=== PATIENT | female | born 1940 | race Caucasian/White ===

== ENCOUNTER 2022-09-21 15:40 | Inpatient (IN) | payer MEDICARE, SELFPAY ==
[2022-09-21] VITALS (8 sets, daily range): BP systolic 129–153; BP diastolic 40–74; PULSE 72–86; RESP 11–26; TEMP 36.2–37.1; O2SAT 98–100
--- NOTE | ~2022-09-21 | CT_ITS ---
EXAMINATION: CT abdomen pelvis wo con DATE: 09/21/2022 19:36 INDICATION: renal failure with hydronephrosis TECHNIQUE: Computed tomography (CT) of the abdomen and pelvis was performed without intravenous contr ast. Automated exposure control and iterative reconstruction technique were employed. The dose-length product was 595.94 mGy-cm. COMPARISON: Renal ultrasound, same date. FINDINGS: Lower thorax: Scattered pulmonary nodules, largest present in the lingula measuring 6 mm. Scarring an d bronchiectasis in the peripheral left lower lung. Liver: Normal. Biliary/Gallbladder: Gallbladder is absent. No bile duct dilation. Pancreas: No mass or duct dilation. Spleen: Normal. 8 mm splenic artery aneurysm, requiring no additional evaluation. Adrenals:No mass. Kidneys: Right kidney surgically absent. Left renal hypertrophy. Moderate left perinephric stranding, pelviectasis, and ureterectasis. 7 mm stone in the proximal left ureter. 5 mm nonobstructing left lo wer pole calcification. Left upper pole postsurgical change. Hemorrhagic cyst in the left upper pole. Multiple simple renal cysts. GI tract: No small or large bowel dilation. Normal appendix. Diverticulosis without diverticulitis. Mesentery/Peritoneum: No ascites, mass, or free air. Retroperitoneum: No mass. Pelvis: The urinary bladder is decompressed by a Stratton catheter. Soft Tissues: Soft tissues and body wall unremarkable. Bones: No acute osseous finding. Likely enchondroma in the proximal right femur. IMPRESSION: 7 mm proximal left ureteral stone causing moderate obstructive uropathy. Multiple pulmonary nodules, measuring up to 6 mm, recommend follow-up low-dose noncontrast chest CT in 3-6 months. Reviewed, dictated and finalized at location K. IMPRESSION: 7 mm proximal left ureteral stone causing moderate obstructive uropathy. Multip le pulmonary nodules, measuring up to 6 mm, recommend follow-up low-dose noncon trast chest CT in 3-6 months.
--- NOTE | ~2022-09-21 | XR_ITS ---
EXAMINATION: XR abdomen/kub 1V INDICATION: Left ureteral calculus TECHNIQUE: Supine views of the abdomen were obtained on 2 radiographs. COMPARISON: None FINDINGS: A left internal ureteral stent is in expected position. A 5 mm stone projects adjacent to t he proximal stent just below the left L3 transverse process. Surgical clips in the right abdomen are consistent with prior right nephrectomy. The bowel gas pattern is normal. IMPRESSION: 1. Left internal ureteral stent in expected position with 5 mm stone adjacent to the proximal stent. Reviewed, dictated and finalized at location A. IMPRESSION: 1. Left internal ureteral stent in expected position with 5 mm stone adjacent t o the proximal stent.
--- NOTE | ~2022-09-21 | US_ITS ---
EXAMINATION: US renal BI DATE: 09/21/2022 19:10 INDICATION: renal failure TECHNIQUE: Multiple grayscale and Doppler ultrasound images of the kidneys were obtained. COMPARISON: None. FINDINGS: The right kidney measures surgically absent The left kidney measures 15.9 x 8.1 x 6.9 cm. The left ki dney demonstrates normal parenchymal echogenicity. There is mild left hydronephrosis. 1 cm simple lef t renal cyst. The bladder is decompressed by a Stratton catheter. IMPRESSION: Mild left hydronephrosis and left renal hypertrophy. Absent right kidney. Reviewed, dictated and finalized at location K.
--- NOTE | ~2022-09-21 | XR_ITS ---
EXAMINATION: XR retrograde pyelo w/stent LT DATE: 09/22/2022 08:14 INDICATION: Left internal ureteral stent placement TECHNIQUE: Fluoroscopic images from a left internal ureteral stent placement are submitted for review . 77 seconds of fluoroscopy time. 4 images. FINDINGS: There is a left double-J internal ureteral stent projecting in expected position, with proximal [place] loop at the level of the renal pelvis. Distal loop is not visualized.. IMPRESSION: 1. Left internal ureteral stent placement. Please refer to real-time procedural findings for detail s. Reviewed, dictated and finalized at location L. IMPRESSION: 1. Left internal ureteral stent placement. Please refer to real-time procedur al findings for details.
[2022-09-21 16:24] LABS: Basophils Percent Auto 0.3 % (0.2-1.2); Eosinophils Absolute Auto 0.1 K/mm3 (0-0.3); Eosinophils Percent Auto 0.9 % (0-4.4); Hematocrit 36.7 % (37.0-47.0); Hemoglobin 11.7 g/dL (12.0-15.0); Immature Granulocyte Absolute 0.05 K/mm3 (0.00-0.031); Immature Granulocyte Percent A 0.4 % (0-0.5); Lymphocytes Absolute Auto 1.15 K/mm3 (0.9-3.2); Lymphocytes Percent Auto 9.8 % (18.3-44.2); Mean Corpuscular HGB Conc 31.9 g/dl (32-36); Mean Corpuscular Hemoglobin 31.3 pg (26-34); Mean Corpuscular Volume 98.1 fl (80-100); Mean Platelet Volume 10.9 fl (7.4-10.4); Monocytes Absolute Auto 1.6 K/mm3 (0.1-0.6); Monocytes Percent Auto 13.5 % (2.6-8.5); Neutrophils Absolute Auto 8.8 K/mm3 (1.3-6.7); Neutrophils Percent Auto 75.1 % (45.5-73.1); Platelet Count Result 202 k/mm3 (150-375); Red Blood Count 3.74 M/mm3 (4.2-5.4); Red Cell Distribution Width 13.1 % (11.5-14.5); White Blood Count 11.8 K/mm3 (4.5-10.0)
[2022-09-21 16:33] LABS: Anion Gap 9 mmol/L (8-16); Blood Urea Nitrogen 38 mg/dL (7-17); Calcium 8.5 mg/dL (8.4-10.2); Carbon Dioxide 28 mmol/L (22-30); Chloride 103 mmol/L (98-107); Estimated CRCL calculation 10 ml/min; Estimated Glomerular Filt Rate 11; Glucose 99 mg/dL (65-110); Potassium 3.5 mmol/L (3.4-5.0); Sodium 140 mmol/L (137-145)
--- NOTE | 2022-09-21 17:03 | ED.GENADULT ---
HPI - General Adult General Chief complaint: Weakness Stated complaint: uti Time Seen by Provider: 09/21/22 16:00 History of Present Illness HPI narrative: Patient is an 82-year-old female with history of dementia that presents to the ER with concerns for UTI. Family reports patient has been more sleepy over the last couple days. She is also been having to strain and attempt to urinate. They are concerned she has a UTI. Patient has history of only having two thirds of a single kidney to perform all of her urinary function due to her trauma when she was younger. Patient receives no care at this facility and has received all of her care at [facility] but family is hoping to start receiving care here. Apparently patient also goes to a cancer center at [facility] for anemia and receives injections and recently had normal iron and folate levels. Pill reports patient has history of a nephrectomy and an additional partial nephrectomy, these are related to trauma and renal cell carcinoma Related Data Home Medications Medication Instructions Recorded Confirmed albuterol 90 mcg/actuation aerosol mcg inhalation 09/21/22 inhaler alendronate 70 mg tablet 70 mg PO WEEKLY 09/21/22 09/21/22 aspirin 81 mg tablet,delayed 81 mg PO DAILY 09/21/22 09/21/22 release cetirizine 10 mg capsule (Zyrtec) 10 mg PO DAILY PRN Allergy Symptoms 09/21/22 09/21/22 levothyroxine 25 mcg tablet 25 mcg PO DAILY 09/21/22 09/21/22 metoprolol tartrate 25 mg tablet mg 09/21/22 midodrine 2.5 mg tablet mg 09/21/22 09/21/22 umeclidinium 62.5 mcg-vilanterol 1 inh inhalation DAILY 09/21/22 09/21/22 25 mcg/actuation powdr for inhalation (Anoro Ellipta) vitamin B complex (B 1 tablet PO DAILY 09/21/22 09/21/22 Complex-Vitamin B12 tablet) Allergies Allergy/AdvReac Type Severity Reaction Status Date / Time cat dander Allergy Unknown Verified 09/21/22 17:47 milk Allergy Unknown Verified 09/21/22 17:47 Review of Systems Review of Systems: ROS unobtainable: Yes unobtainable due to mental status PMFSH Past Medical History Medical History (Updated 09/21/22 @ 19:25 by Charlie Olivera MD) Anemia Breast cancer Chronic kidney disease Dementia Hyperlipidemia Hypertension Osteoporosis Renal cell carcinoma Surgical History Surgical History (Updated 09/21/22 @ 19:22 by Charlie Olivera MD) H/O partial nephrectomy History of nephrectomy Exam Narrative: GENERAL: Well-appearing, well-nourished, and in no acute distress. HEAD: Normocephalic, atraumatic. EYES: PERRL and EOMI. ENT: Mucous membranes moist. CHEST: Clear to auscultation. No respiratory distress. HEART: Regular rate and rhythm. Normal peripheral pulses. ABDOMEN: Soft, nontender, nondistended. EXTREMITIES: Normal range of motion. No edema. SKIN: Warm, dry, no rash. NEURO: Alert and oriented x1. PSYCH: Normal mood and affect. Course Course Emergency Course: Patient resting comfortably. Patient family informed of results. Nephrology has been consulted and recommends renal ultrasound as well as urine creatinine and sodium. No comparison records at this hospital. Hospitalist service has accepted the patient. Vital Signs Vital signs: Vital Signs Temperature 97.2 F L 09/21/22 15:55 Pulse Rate 86 09/21/22 15:55 Respiratory Rate 16 09/21/22 15:55 Blood Pressure 129/40 L 09/21/22 15:55 Pulse Oximetry 98 09/21/22 15:55 Oxygen Delivery Room Air 09/21/22 15:55 Temperature 97.2 F L 09/21/22 15:55 Pulse Rate 72 09/21/22 18:46 Respiratory Rate 20 09/21/22 18:46 Blood Pressure 143/55 H 09/21/22 18:46 Pulse Oximetry 98 09/21/22 18:46 Oxygen Delivery Room Air 09/21/22 16:08 Medical Decision Making Vital Signs Vital Signs: Vital Signs Temperature 97.2 F L 09/21/22 15:55 Pulse Rate 86 09/21/22 15:55 Respiratory Rate 16 09/21/22 15:55 Blood Pressure 129/40 L 09/21/22 15:55 Pulse Oximetry 98
--- NOTE | 2022-09-21 18:49 | PC.NURSE ---
Still no output in catheter
[2022-09-21] MEDS: SODIUM CHLORIDE 0.9% IV 1,000 ML 125 ML IV CONT (18:57)
--- NOTE | 2022-09-21 21:02 | PM.IMHP ---
H&P: HPI History of Present Illness Date/Time: 09/21/22 23:40 Chief Complaint: not eating or drinking, decreased urination Narrative: 82-year-old female with a past medical history of left unilateral kidney, chronic kidney, osteoporosis, essential hypertension, COPD, dementia and hypothyroidism who presented to the ER via private vehicle with family due to decreased urine output and decreased oral intake. There is no prior medical history available in the computer and the patient is quite demented. She is so confused she can only tell me her 1st and middle name and cannot tell me her last name. She states that her last name is associated with something that is little and white that you can eat. She cannot tell me her date of or age. She started sentences and then finishes with nonsensical responses. She denies having any pain. She has not been having any nausea or vomiting. She has been essentially and uric since admission and has a Stratton catheter placed. She remains anuric despite receiving IV fluids. Review of Systems Review of Systems: ROS unobtainable: Yes unobtainable due to medical condition (Dementia) [facility] Past Medical History Medical History (Updated 09/22/22 @ 07:57 by Gloria Whalen DO) Anemia Breast cancer Breast cancer, left breast Chronic kidney disease COPD (chronic obstructive pulmonary disease) Dementia Hyperlipidemia Hypertension Hypothyroidism Irritable bowel disease Mitral valve prolapse Osteoporosis Renal cell carcinoma Surgical History Surgical History H/O partial nephrectomy left renal cell carcinoma History of nephrectomy right trauma Hx of cholecystectomy Family History Family History Other Unknown family medical history Social History Social History (Updated 09/22/22 @ 07:41 by Gloria Whalen DO) Social History: According nursing staff the patient lives at home alone. She has caregivers that come in the morning and the evening. Code status: Full code (per EMR) Smoking packs per day: 3 Smoking cigarettes per day: 60.0 Years smoked: 12 Smoking pack-years: 36.00 Smoking status: Former smoker Alcohol intake: never Substance use: never Lack of Transportation: No Lack of Food: Never True Current Housing: I Have Housing Concerned About Future Housing: No Difficulty Paying Gas/Electric Bills: No Difficulty Paying for Meds: No Currently Unemployed: No Education: Don't Know Difficulty w/ Childcare or Family Care: No Spiritual care concerns: Yes Meds Home Medications and Allergies Home Medications Medication Instructions Recorded Confirmed Type Calcium + Vitamin D 1 tablet PO BID 09/21/22 09/21/22 History One-A-Day Women's 50 Plus 1 tablet PO DAILY 09/21/22 09/21/22 History albuterol 90 mcg/actuation aerosol 90 mcg inhalation QID PRN Dyspnea 09/21/22 09/21/22 History inhaler alendronate 70 mg tablet 70 mg PO WEEKLY 09/21/22 09/21/22 History aspirin 325 mg tablet 325 mg PO DAILY 09/21/22 09/21/22 History cetirizine 10 mg capsule (Zyrtec) 10 mg PO DAILY PRN Allergy Symptoms 09/21/22 09/21/22 History ferrous sulfate 325 mg (65 mg 325 mg PO DAILY 09/21/22 09/21/22 History iron) tablet levothyroxine 25 mcg tablet 25 mcg PO DAILY 09/21/22 09/21/22 History metoprolol tartrate 25 mg tablet 25 mg PO DAILY 09/21/22 09/21/22 History midodrine 2.5 mg tablet 2.5 mg PO DAILY 09/21/22 09/21/22 History umeclidinium 62.5 mcg-vilanterol 1 inh inhalation DAILY 09/21/22 09/21/22 History 25 mcg/actuation powdr for inhalation (Anoro Ellipta) vit C 250 mg-vit E 90 mg-zinc 40 1 tablet PO BID 09/21/22 09/21/22 History mg-copper 1 [id number] capsule (PreserVision AREDS-2) vitamin B complex (B 1 tablet PO DAILY 09/21/22 09/21/22 History Complex-Vitamin B12 tablet) Allergies Allergy/AdvReac Type
--- NOTE | 2022-09-21 22:17 | PC.NURSE ---
This patient, Venessa Pierce, was admitted to 3 Medical Room 346-01. Patient/family oriented to hospital policies and general routines including ID bracelet, bed and alarms, visiting hours, pain management, procedures, bathroom and other care routines, personal items, smoking policy, room service/diet, and visiting hours. Information on how to activate the Rapid Response Team has been discussed. Patient/Family are encouraged to report perceived risks to care and to ask questions if they do not understand what they are told or what they should do. Pt has Lt ureteral stone with hydronephrosis OR planned for AM daughter called and consent received.
[2022-09-22] VITALS (14 sets, daily range): BP systolic 120–156; BP diastolic 64–89; PULSE 66–107; RESP 12–20; TEMP 36–37.5; O2SAT 96–100
[2022-09-22] MEDS: SODIUM CHLORIDE 0.9% IV 1,000 ML 125 ML IV CONT (03:21)
[2022-09-22 05:44] LABS: Hematocrit 34.6 % (37.0-47.0); Hemoglobin 11.3 g/dL (12.0-15.0); Mean Corpuscular HGB Conc 32.7 g/dl (32-36); Mean Corpuscular Hemoglobin 31.8 pg (26-34); Mean Corpuscular Volume 97.5 fl (80-100); Platelet Count Result 181 k/mm3 (150-375); Red Blood Count 3.55 M/mm3 (4.2-5.4); White Blood Count 9.4 K/mm3 (4.5-10.0)
[2022-09-22 05:55] LABS: Albumin Level 3.4 g/dL (3.5-5.1); Anion Gap 7 mmol/L (8-16); Blood Urea Nitrogen 40 mg/dL (7-17); Calcium 7.6 mg/dL (8.4-10.2); Carbon Dioxide 24 mmol/L (22-30); Chloride 107 mmol/L (98-107); Estimated CRCL calculation 8 ml/min; Estimated Glomerular Filt Rate 8; Glucose 88 mg/dL (65-110); Phosphorus 3.4 mg/dL (2.5-4.5); Sodium 138 mmol/L (137-145)
--- NOTE | 2022-09-22 06:55 | WPDANESEPPF ---
Anes - Initial Pre Proc Eval Procedure: Operation Date: 09/22/22 14:30 Proposed Procedures p Cystoscopy with Left Stent Placement(Left) - Gary Joseph MD Date/Time: 09/22/22 06:55 Surgeon: Fidencio Bar MD Pre Op Diagnosis: Renal Failure Patient Data Age: 82 Gender: F Height: 1.78 m Weight: 62 kg Last Vital Signs Temp 37.2 C 09/22/22 06:00 Pulse 75 09/22/22 06:00 Resp 18 09/22/22 06:00 BP 151/71 H 09/22/22 06:00 Pulse Ox 97 09/22/22 06:00 O2 Del Method Room Air 09/21/22 21:55 Allergies Allergy/AdvReac Type Severity Reaction Status Date / Time cat dander Allergy Unknown Verified 09/21/22 17:47 milk Allergy Unknown Verified 09/21/22 17:47 Home Medications Medication Instructions Recorded Confirmed Type Calcium + Vitamin D 1 tablet PO BID 09/21/22 09/21/22 History One-A-Day Women's 50 Plus 1 tablet PO DAILY 09/21/22 09/21/22 History albuterol 90 mcg/actuation aerosol 90 mcg inhalation QID PRN Dyspnea 09/21/22 09/21/22 History inhaler alendronate 70 mg tablet 70 mg PO WEEKLY 09/21/22 09/21/22 History aspirin 325 mg tablet 325 mg PO DAILY 09/21/22 09/21/22 History cetirizine 10 mg capsule (Zyrtec) 10 mg PO DAILY PRN Allergy Symptoms 09/21/22 09/21/22 History ferrous sulfate 325 mg (65 mg 325 mg PO DAILY 09/21/22 09/21/22 History iron) tablet levothyroxine 25 mcg tablet 25 mcg PO DAILY 09/21/22 09/21/22 History metoprolol tartrate 25 mg tablet 25 mg PO DAILY 09/21/22 09/21/22 History midodrine 2.5 mg tablet 2.5 mg PO DAILY 09/21/22 09/21/22 History umeclidinium 62.5 mcg-vilanterol 1 inh inhalation DAILY 09/21/22 09/21/22 History 25 mcg/actuation powdr for inhalation (Anoro Ellipta) vit C 250 mg-vit E 90 mg-zinc 40 1 tablet PO BID 09/21/22 09/21/22 History mg-copper 1 [id number] capsule (PreserVision AREDS-2) vitamin B complex (B 1 tablet PO DAILY 09/21/22 09/21/22 History Complex-Vitamin B12 tablet) Laboratory Tests 09/21/22 09/22/22 16:18 05:29 WBC 11.8 H K/mm3 9.4 K/mm3 (4.5-10.0) (4.5-10.0) RBC 3.74 L M/mm3 3.55 L M/mm3 (4.2-5.4) (4.2-5.4) Hgb 11.7 L g/dL 11.3 L g/dL (12.0-15.0) (12.0-15.0) Hct 36.7 L % 34.6 L % (37.0-47.0) (37.0-47.0) MCV 98.1 fl 97.5 fl (80-100) (80-100) MCH 31.3 pg 31.8 pg (26-34) (26-34) MCHC 31.9 L g/dl 32.7 g/dl (32-36) (32-36) RDW 13.1 % 13.0 % (11.5-14.5) (11.5-14.5) Plt Count 202 k/mm3 181 k/mm3 (150-375) (150-375) MPV 10.9 H fl 11.0 H fl (7.4-10.4) (7.4-10.4) Immature Gran % (Auto) 0.4 % (0-0.5) Neut % (Auto) 75.1 H % (45.5-73.1) Lymph % (Auto) 9.8 L % (18.3-44.2) [place] % (Auto) 13.5 H % (2.6-8.5) Eos % (Auto) 0.9 % (0-4.4) Baso % (Auto) 0.3 % (0.2-1.2) Lymph # (Auto) 1.15 K/mm3 (0.9-3.2) [place] # (Auto) 1.6 H K/mm3 (0.1-0.6) Eos # (Auto) 0.1 K/mm3 (0-0.3) Baso # (Auto) 0.0 K/mm3 (0.0-0.1) Abs Immat Gran (auto) 0.05 H K/mm3 (0.00-0.031) Absolute Neuts (auto) 8.8 H K/mm3 (1.3-6.7) Absolute Nucleated RBC 0.0 K/mm3 (0.0-0.012) Nucleated RBC % 0.0 % (0.0-0.2) Sodium 140 mmol/L 138 mmol/L (137-145) (137-145) Potassium 3.5 mmol/L 4.0 mmol/L (3.4-5.0) (3.4-5.0) Chloride 103 mmol/L 107 mmol/L (98-107) (98-107) Carbon Dioxide 28 mmol/L 24 mmol/L (22-30) (22-30) Anion Gap 9 mmol/L 7 L mmol/L (8-16) (8-16) BUN 38 H mg/dL 40 H mg/dL (7-17) (7-17) Creatinine 4.00 H mg/dL 5.00 H mg/dL (0.7-1.0) (0.7-1.0) Estim Creat Clear Calc 10 ml/min 8 ml/min Estimated GFR 11 L 8 L (59 - ) (59 - ) Glucose 99 mg/dL 88 mg/dL (65-110) (65-110) Calcium 8.5 mg/dL 7.6 L mg/dL (8.4-10.2) (8.4-10.2) Phosphorus 3.4 mg/dL (2.5-4.5) Albumin 3.4 L g/dL (3.5-5.1) Patient hx anesthesia problems: none Family hx anesthes
--- NOTE | 2022-09-22 07:15 | WPDURCON ---
Assessment and Plan Assessment and plan (1) Hydronephrosis with urinary obstruction due to ureteral calculus: Code(s): N13.2 - Hydronephrosis with renal and ureteral calculous obstruction Status: Acute Assessment and Plan: Proceed with cystoscopy, left retrograde, left stent placement. Urology Consult Note HPI Date Seen: 09/22/22 Time Seen: 07:15 Requesting Physician: Fidencio Bar MD Primary Care Provider: Andra Schulz, DO Consult Narrative Reason for consult: left hydronephrosis with obstructing stone in solitary kidney Narrative: Venessa Pierce is a 82 year old female with dementia admitted with some increase in confusion. Information obtained from chart. She was eventually found to have a solitary left kidney with a 7 mm left ureteral calculus. Creatinine up to 4 but baseline unknown. Afebrile. Will proceed with cystoscopy with left retrograde, left stent placement. Stratton cath in place without urine Review of Systems Review of Systems: All systems reviewed & are unremarkable except as noted in HPI and below PMFSH Past Medical History Medical History Anemia Breast cancer Breast cancer, left breast Chronic kidney disease COPD (chronic obstructive pulmonary disease) Dementia Hyperlipidemia Hypertension Irritable bowel disease Mitral valve prolapse Osteoporosis Renal cell carcinoma Surgical History Surgical History H/O partial nephrectomy left renal cell carcinoma History of nephrectomy right trauma Hx of cholecystectomy Family History Family History Other Unknown family medical history Social History Social History Smoking packs per day: 3 Smoking cigarettes per day: 60.0 Years smoked: 12 Smoking pack-years: 36.00 Smoking status: Former smoker Alcohol intake: never Substance use: never Lack of Transportation: No Lack of Food: Never True Current Housing: I Have Housing Concerned About Future Housing: No Difficulty Paying Gas/Electric Bills: No Difficulty Paying for Meds: No Currently Unemployed: No Education: Don't Know Difficulty w/ Childcare or Family Care: No Spiritual care concerns: Yes Meds Home Medications and Allergies Home Medications Medication Instructions Recorded Confirmed Type Calcium + Vitamin D 1 tablet PO BID 09/21/22 09/21/22 History One-A-Day Women's 50 Plus 1 tablet PO DAILY 09/21/22 09/21/22 History albuterol 90 mcg/actuation aerosol 90 mcg inhalation QID PRN Dyspnea 09/21/22 09/21/22 History inhaler alendronate 70 mg tablet 70 mg PO WEEKLY 09/21/22 09/21/22 History aspirin 325 mg tablet 325 mg PO DAILY 09/21/22 09/21/22 History cetirizine 10 mg capsule (Zyrtec) 10 mg PO DAILY PRN Allergy Symptoms 09/21/22 09/21/22 History ferrous sulfate 325 mg (65 mg 325 mg PO DAILY 09/21/22 09/21/22 History iron) tablet levothyroxine 25 mcg tablet 25 mcg PO DAILY 09/21/22 09/21/22 History metoprolol tartrate 25 mg tablet 25 mg PO DAILY 09/21/22 09/21/22 History midodrine 2.5 mg tablet 2.5 mg PO DAILY 09/21/22 09/21/22 History umeclidinium 62.5 mcg-vilanterol 1 inh inhalation DAILY 09/21/22 09/21/22 History 25 mcg/actuation powdr for inhalation (Anoro Ellipta) vit C 250 mg-vit E 90 mg-zinc 40 1 tablet PO BID 09/21/22 09/21/22 History mg-copper 1 [id number]-twhuly capsule (PreserVision AREDS-2) vitamin B complex (B 1 tablet PO DAILY 09/21/22 09/21/22 History Complex-Vitamin B12 tablet) Allergies Allergy/AdvReac Type Severity Reaction Status Date / Time cat dander Allergy Unknown Verified 09/21/22 17:47 milk Allergy Unknown Verified 09/21/22 17:47 Vital Signs Vital Signs - 24 hr 09/21/22 15:55 09/21/22 16:08 09/21/22 16:16 Temperature 36.
--- NOTE | 2022-09-22 07:19 | WPDHPUPDATE1 ---
History and Physical Update Update Date/Time: 09/22/22 07:19 History and Physical has been reviewed, including an updated exam of the patient. There are NO changes in the patient's condition. Risks, benefits, and alternatives have been discussed and questions answered. Patient agrees to proceed with procedure. Proceed with cystoscopy, left retrograde, left stent placement.
[2022-09-22] MEDS: SODIUM CHLORIDE 0.9% IV 500 ML 30 ML IV CONT (07:25)
[2022-09-22] MEDS: ceFAZolin 1 GM/NS 50 ML 1 GM/50 ML BAG IVPB (07:32)
--- NOTE | 2022-09-22 08:08 | W.PM.PROC2 ---
Procedure Note - Detailed Date of Procedure 09/22/22 Pre-op Diagnosis Renal Failure Obstructing left ureteral calculus in solitary kidney Post-op Diagnosis Same Procedure Performed Cystoscopy, left retrograde pyelogram, left ureteral stent placement 4.8 [place] contour stent Surgeon Gary Joseph MD Anesthesia General Description of Procedure Patient is taken to the operative suite and correctly identified. Once anesthesia was obtained she was placed in dorsal lithotomy position and prepped and draped usual sterile fashion. Twenty-two [place] scope was inserted in the bladder. The left ureteral orifice was visualized. There were no tumors noted. A pyelogram was performed the stone was visualized in the proximal ureter contrast was able to make it into the left collecting system. We had to manipulate an angled guidewire past the stone. An 8 [place] would not pass the stone. Thus placed a 4.8 [place] contour stent with the proximal end coiled in the renal pelvis the distal in the bladder. 2% viscous lidocaine was inserted urethra. Sixteen [place] Stratton was placed. Patient is taken recovery stable condition. We will see how she does clinically with the renal function. The stone will be addressed at a later point time. This completes dictation please send a copy to my office Urine Output 0 Drains Yes Packing No Pathology None sent Complications No immediate complications Condition Stable Disposition PACU
[2022-09-22] MEDS: FERROUS SULFATE 324 MG TABLET PO (10:07)
[2022-09-22] MEDS: LEVOTHYROXINE SODIUM 25 MCG TABLET PO (10:07)
[2022-09-22] MEDS: MIDODRINE HCL 2.5 MG TABLET PO (10:07)
[2022-09-22] MEDS: METOPROLOL TARTRATE 25 MG TABLET PO (10:07)
[2022-09-22] MEDS: SODIUM CHLORIDE 0.9% IV 1,000 ML 65 ML IV CONT (10:10)
--- NOTE | 2022-09-22 10:36 | PM.IMPN ---
Progress Note: A&P Assessment and Plan (1) Acute on chronic renal failure: Qualifiers: Acute renal failure type: unspecified Chronic kidney disease stage: unspecified stage Qualified Code(s): N17.9 - Acute kidney failure, unspecified; N18.9 - Chronic kidney disease, unspecified Code(s): N17.9 - Acute kidney failure, unspecified; N18.9 - Chronic kidney disease, unspecified Status: Acute Assessment and Plan: Renal functions worse than yesterday but patient underwent cystoscopy and stent placement today. She is making urine now. Hopefully renal functions will improve soon. Monitor BMP daily. Continue IV fluids (2) Hydronephrosis with urinary obstruction due to ureteral calculus: Code(s): N13.2 - Hydronephrosis with renal and ureteral calculous obstruction Status: Acute Assessment and Plan: Appreciate urology input. Patient underwent cystoscopy with stent placement. Continue IV fluids. Monitor BMP. Continue antibiotics (3) Hypothyroidism: Qualifiers: Hypothyroidism type: acquired Qualified Code(s): E03.9 - Hypothyroidism, unspecified Code(s): E03.9 - Hypothyroidism, unspecified Status: Acute Assessment and Plan: Continue home dose of levothyroxine (4) Hypertension: Qualifiers: Hypertension type: primary hypertension Qualified Code(s): I10 - Essential (primary) hypertension Code(s): I10 - Essential (primary) hypertension Status: Acute Assessment and Plan: Continue home medication Subjective Date/time seen: 09/22/22 10:36 Interval history: She is confused Review of Systems Review of Systems: ROS unobtainable: Yes unobtainable due to mental status Exam Narrative: 62 kg BMI 19.6 Const: Other: No acute distress, well-developed well-nourished, frail, elderly HENMT: Other: Mucous membranes are dry, no oral pharyngeal erythema, fair dentition, head is normocephalic atraumatic Eyes: Other: Pupils are equal and reactive, no scleral icterus, mild conjunctival pallor Neck: Other: No JVD, no lymphadenopathy Resp: Other: Clear to auscultation bilaterally, no increased work of breathing Cardio: Other: Regular rate, regular rhythm, 2+ bilateral radial pedal pulses GI: Other: Soft, nontender, nondistended, positive bowel sounds : Other: Stratton catheter in place with no urine output Skin: Other: Generalized pallor, non jaundice Neuro: Other: Alert oriented only to 1st and middle name, no localizing neurologic deficits noted, cranial nerves seem to be grossly intact Extrem: Other: No clubbing, cyanosis or edema Objective Data Vital Signs Vital Signs: Vital Signs - 24 hr 09/21/22 15:55 09/21/22 16:08 09/21/22 16:16 Temperature 97.2 F L Pulse Rate 86 79 84 Respiratory Rate 16 26 H 23 H Blood Pressure 129/40 L 140/56 L 146/74 H Pulse Oximetry 98 100 100 Oxygen Delivery Room Air Room Air 09/21/22 16:31 09/21/22 16:46 09/21/22 17:01 Temperature Pulse Rate 79 78 78 Respiratory Rate 19 11 L 16 Blood Pressure 139/71 148/73 H 140/66 Pulse Oximetry 99 99 99 Oxygen Delivery 09/21/22 18:46 09/21/22 21:55 09/21/22 23:02 Temperature 98.8 F Pulse Rate 72 76 Respiratory Rate 20 20 Blood Pressure 143/55 H 153/70 H Pulse Oximetry 98 99 Oxygen Delivery Room Air 09/22/22 06:00 09/22/22 07:29 09/22/22 08:12 Temperature 98.9 F 99.5 F 99.4 F Pulse Rate 75 83 107 H Respiratory Rate 18 16 16 Blood Pressure 151/71 H 133/67 156/89 H Pulse Oximetry 97 99 97 Oxygen Delivery Room Air Room Air 09/22/22 08:25 09/22/22 08:40 09/22/22 08:55 Temperature Pulse Rate 85 78 72 Respiratory Rate 16 12 18 Blood Pressure 120/78 125/70 133/71 Pulse Oximetry 96 96 97 Oxygen Delivery Room Air Room Air Room Air 09/22/22 09:45 09/22/22 10:07 09/22/22 10:00 Temperature 96.8 F L 97 F L Pulse Rate
--- NOTE | 2022-09-22 17:31 | PM.CNNEP ---
Assessment and Plan Assessment and plan (1) Acute kidney injury: Code(s): N17.9 - Acute kidney failure, unspecified Status: Acute Assessment and Plan: it is not clear what the baseline creatinine is in this patient; chronic kidney disease is in the chart but we have no chart records of this. She does only have 1 kidney of course but that does not mean her creatinine is necessarily abnormal depending on why and when she lost the original kidney. She does clearly have acute kidney injury. as she was not making any urine. This is due to a stone which passed and obstructed the ureter in the ureter/ureteropelvic junction. She does mention that she had a little left-sided flank pain about a week ago but I am not sure about the reliability of this history based on other things she has said. The obstruction is now relieved. She is making some urine but not a whole lot. Depending on long the obstruction has been there it may take a variable amount of time for the kidney to recover and start making urine again. Her numbers are already pretty bad. Will check another set of blood work tomorrow, 24 hours after the obstruction was relieved and see how much urine she has made and where we are with the electrolytes and BUN /creatinine. She may end up needing dialysis if that is something the family would wish to do and hopefully would be reversible but not guaranteed. (2) Hydronephrosis with urinary obstruction due to ureteral calculus: Code(s): N13.2 - Hydronephrosis with renal and ureteral calculous obstruction Status: Acute Assessment and Plan: the stone is still there but a stent is draining the renal pelvis. (3) Hypothyroidism: Qualifiers: Hypothyroidism type: acquired Qualified Code(s): E03.9 - Hypothyroidism, unspecified Code(s): E03.9 - Hypothyroidism, unspecified Status: Acute Assessment and Plan: She is on thyroid medication (4) Hypertension: Qualifiers: Hypertension type: primary hypertension Qualified Code(s): I10 - Essential (primary) hypertension Code(s): I10 - Essential (primary) hypertension Status: Acute Assessment and Plan: her blood pressure is under pretty good control between 120 and 148. (5) COPD (chronic obstructive pulmonary disease): Code(s): J44.9 - Chronic obstructive pulmonary disease, unspecified Status: Acute Assessment and Plan: She has inhalers as needed History of Present Illness Reason for Consult Consult date: 09/22/22 Chief Complaint Chief complaint: Renal Failure History of Present Illness Narrative: Venessa is a very pleasant 82-year-old lady who has multiple medical problems including senile dementia of the Alzheimer's type, breast cancer of the left breast, chronic kidney disease ( As listed in the chart but we do not have any labs to verify this), COPD, hyperlipidemia, hypertension, irritable bowel, mitral valve prolapse, renal cell carcinoma, osteoporosis. apparently showing in the emergency room because of confusion. She cannot really answer any questions in this information is gleaned from the chart. She was evaluated in the emergency room and found to have hydronephrosis. She only has 1 kidney on the left. There was no urine in the bladder on straight catheterization in the emergency room. They called Dr. patricio pena who came and saw her and placed a stent per cystoscope at about 8:00 a.m.. After that she has started to make a little bit of urine. The patient denies any shortness of breath or pain anywhere. Review of Systems Constitutional: Constitutional: Reports no additional constitutional complaints Eyes: Eyes: Reports no additional eye complaints ENT: Reports system reviewed and no additional complaints, except as documented Cardiovascular: Cardiovascular: Reports no additional cardiovascular complaints Respiratory: Respiratory: Reports no
[2022-09-23] MEDS: METOPROLOL TARTRATE 25 MG TABLET PO (08:21)
[2022-09-23] MEDS: MIDODRINE HCL 2.5 MG TABLET PO (08:21)
[2022-09-23] MEDS: UMECLIDINIUM/VILANTEROL 62.5-25 MCG ELLIPTA 1 PUFF INHALATION (09:00)
[2022-09-23] MEDS: FERROUS SULFATE 324 MG TABLET PO (09:00)
[2022-09-23] MEDS: LEVOTHYROXINE SODIUM 25 MCG TABLET PO (09:12)
--- NOTE | 2022-09-23 12:30 | CONS_ITS ---
SUBJECTIVE The patient is feeling okay. ?She is lying in bed comfortably. ?She is not short of breath. ?She says she notices that she does not have that left-sided pain anymore. ?She is eating pretty well. ?I talked with nursing and the patient is making more urine. OBJECTIVE VITAL SIGNS: ?I was told by the nurse that her blood pressure was 140/70, but I do not have any written vital signs right now. ? GENERAL: ?She is a well-developed, well-nourished female, lying in the hospital bed. ? LUNGS: ?Symmetric and clear. HEART: ?Regular rate and rhythm. ?No rub or gallop. ?Bowel sounds are positive. ?Soft, nontender. ?No HSM. ?No masses. ?No bruits. ? EXTREMITIES: ?Show no cyanosis, clubbing, or edema. ? LABORATORY DATA Sodium 140, potassium 3.5, chloride 103, CO2 of 28, glucose 99, BUN 38, creatinine 4.99. IMPRESSION The patient has acute kidney injury. ?She had a stone obstructing her sole kidney. ?A stent was placed by Dr. Joseph and she is making more urine now. ?Labs are pending for today, but hopefully the renal function will improve. ?She seems better mentally today as she is more directable and more conversive and less scattered and tangential. ?Hopefully, this means that the kidney function is getting better as well.? She has a renal stone. ?This is going to be managed when she is better. ?? Thank you very much. ALFREDITO
--- NOTE | 2022-09-23 18:45 | PC.NURSE ---
Paper documentation exists on this patient due to [employer] downtime on 09/23/22 from [id number] to [id number]
[2022-09-23 20:00] VITALS: PULSE 79; RESP 18; O2SAT 97
[2022-09-23 22:05] VITALS: BP 148/70; PULSE 84; RESP 16; TEMP 36.6; O2SAT 94
[2022-09-24 05:49] VITALS: BP 150/76; PULSE 70; RESP 18; TEMP 36.4; O2SAT 97
[2022-09-24 05:51] LABS: Hematocrit 34.3 % (37.0-47.0); Mean Corpuscular HGB Conc 32.1 g/dl (32-36); Mean Corpuscular Hemoglobin 31.1 pg (26-34); Mean Corpuscular Volume 96.9 fl (80-100); Mean Platelet Volume 11.2 fl (7.4-10.4); Platelet Count Result 189 k/mm3 (150-375); Red Blood Count 3.54 M/mm3 (4.2-5.4); Red Cell Distribution Width 12.4 % (11.5-14.5); White Blood Count 6.3 K/mm3 (4.5-10.0)
[2022-09-24] MEDS: LEVOTHYROXINE SODIUM 25 MCG TABLET PO (06:13)
[2022-09-24 06:24] LABS: Anion Gap 5 mmol/L (8-16); Blood Urea Nitrogen 8 mg/dL (7-17); Calcium 8.1 mg/dL (8.4-10.2); Carbon Dioxide 27 mmol/L (22-30); Chloride 110 mmol/L (98-107); Estimated CRCL calculation 79 ml/min; Estimated Glomerular Filt Rate > 60; Glucose 87 mg/dL (65-110); Potassium 3.4 mmol/L (3.4-5.0); Sodium 142 mmol/L (137-145)
[2022-09-24 07:40] VITALS: PULSE 57; RESP 18; O2SAT 94
[2022-09-24] MEDS: UMECLIDINIUM/VILANTEROL 62.5-25 MCG ELLIPTA 1 PUFF INHALATION (07:40)
[2022-09-24 09:11] VITALS: PULSE 85
[2022-09-24] MEDS: MIDODRINE HCL 2.5 MG TABLET PO (09:11)
[2022-09-24] MEDS: METOPROLOL TARTRATE 25 MG TABLET PO (09:11)
[2022-09-24] MEDS: FERROUS SULFATE 324 MG TABLET PO (09:11)
[2022-09-24] MEDS: SODIUM CHLORIDE 0.9% IV 1,000 ML 65 ML IV CONT (09:12)
[2022-09-24] MEDS: ACETAMINOPHEN 325 MG TABLET 650 MG PO ×2 (09:17→17:10)
[2022-09-24 10:54] LABS: Anion Gap 6 mmol/L (8-16); Blood Urea Nitrogen 7 mg/dL (7-17); Calcium 8.1 mg/dL (8.4-10.2); Carbon Dioxide 27 mmol/L (22-30); Chloride 108 mmol/L (98-107); Estimated CRCL calculation 79 ml/min; Estimated Glomerular Filt Rate > 60; Glucose 122 mg/dL (65-110); Sodium 141 mmol/L (137-145)
--- NOTE | 2022-09-24 11:27 | PM.IMPN ---
Progress Note: A&P Assessment and Plan (1) Acute on chronic renal failure: Qualifiers: Acute renal failure type: unspecified Chronic kidney disease stage: unspecified stage Qualified Code(s): N17.9 - Acute kidney failure, unspecified; N18.9 - Chronic kidney disease, unspecified Code(s): N17.9 - Acute kidney failure, unspecified; N18.9 - Chronic kidney disease, unspecified Status: Acute Assessment and Plan: Resolved. Hypokalemia noted. Will replace and likely send home tomorrow (2) Hydronephrosis with urinary obstruction due to ureteral calculus: Code(s): N13.2 - Hydronephrosis with renal and ureteral calculous obstruction Status: Acute Assessment and Plan: Status post stent placement. Doing well. Will need to follow up with Urology. Creatinine now normal (3) Hypothyroidism: Qualifiers: Hypothyroidism type: acquired Qualified Code(s): E03.9 - Hypothyroidism, unspecified Code(s): E03.9 - Hypothyroidism, unspecified Status: Acute Assessment and Plan: Continue home dose of levothyroxine (4) Hypertension: Qualifiers: Hypertension type: primary hypertension Qualified Code(s): I10 - Essential (primary) hypertension Code(s): I10 - Essential (primary) hypertension Status: Acute Assessment and Plan: Continue home medication Subjective Date/time seen: 09/24/22 11:27 Interval history: No complaints Exam Narrative: 62 kg BMI 19.6 Const: Other: No acute distress, well-developed well-nourished, frail, elderly HENMT: Other: Mucous membranes are dry, no oral pharyngeal erythema, fair dentition, head is normocephalic atraumatic Eyes: Other: Pupils are equal and reactive, no scleral icterus, mild conjunctival pallor Neck: Other: No JVD, no lymphadenopathy Resp: Other: Clear to auscultation bilaterally, no increased work of breathing Cardio: Other: Regular rate, regular rhythm, 2+ bilateral radial pedal pulses GI: Other: Soft, nontender, nondistended, positive bowel sounds : Other: Stratton catheter in place with no urine output Skin: Other: Generalized pallor, non jaundice Neuro: Other: Alert oriented only to 1st and middle name, no localizing neurologic deficits noted, cranial nerves seem to be grossly intact Extrem: Other: No clubbing, cyanosis or edema Objective Data Vital Signs Vital Signs: Vital Signs - 24 hr 09/23/22 20:00 09/23/22 22:05 09/24/22 05:49 Temperature 97.8 F 97.6 F Pulse Rate 79 84 70 Respiratory Rate 18 16 18 Blood Pressure 148/70 H 150/76 H Pulse Oximetry 97 94 97 Oxygen Delivery Room Air 09/24/22 07:40 09/24/22 07:40 09/24/22 09:11 Temperature Pulse Rate 57 L 57 L 85 Respiratory Rate 18 18 Blood Pressure Pulse Oximetry 94 Oxygen Delivery Room Air 09/24/22 08:00 09/23/22 15:30 Temperature Pulse Rate Respiratory Rate Blood Pressure Pulse Oximetry Oxygen Delivery Room Air Room Air Intake/Output Intake/Output: Intake & Output 09/21/22 09/22/22 09/23/22 09/24/22 23:59 23:59 23:59 23:59 Intake Total 2510 1000 440 Output Total 0 1900 1900 Balance 0 610 1000 -1460 Meds/Results Medications: Active Medications Generic Name Dose Route Start Last Admin Trade Name Freq PRN Reason Stop Dose Admin Acetaminophen 650 mg 09/21/22 18:31 09/24/22 09:17 Acetaminophen 325 Mg Tablet PO 650 mg Q4H PRN Administration Mild Pain (1-3) or Fever Albuterol 1 puff 09/21/22 21:00 Albuterol Sulfate (*Sp) Aerosol 1 Puff INHALATION QID PRN Dyspnea Ferrous Sulfate 324 mg 09/22/22 09:00 09/24/22 09:11 Ferrous Sulfate 324 Mg Tablet PO 324 mg DAILY DELILAH Administration Sodium Chloride 1,000 mls @ 65 mls/hr 09/21/22 18:35 09/24/22 09:12 Normal Saline Iv IV CONT 65 mls/hr .[id number] DELILAH Administration Le
--- NOTE | 2022-09-24 11:39 | PM.PNNEP ---
Progress Note: A&P Assessment and Plan (1) Acute kidney injury: Code(s): N17.9 - Acute kidney failure, unspecified Status: Acute Assessment and Plan: the creatinine has improved dramatically from 5 to 0.5. All this because she had the stent placed allowing her kidney to function. With good renal function renal will sign off. (2) Hydronephrosis with urinary obstruction due to ureteral calculus: Code(s): N13.2 - Hydronephrosis with renal and ureteral calculous obstruction Status: Acute Assessment and Plan: the stone is still there but a stent is draining the renal pelvis. (3) Hypothyroidism: Qualifiers: Hypothyroidism type: acquired Qualified Code(s): E03.9 - Hypothyroidism, unspecified Code(s): E03.9 - Hypothyroidism, unspecified Status: Acute Assessment and Plan: She is on thyroid medication (4) Hypertension: Qualifiers: Hypertension type: primary hypertension Qualified Code(s): I10 - Essential (primary) hypertension Code(s): I10 - Essential (primary) hypertension Status: Acute Assessment and Plan: her blood pressure is under pretty good control between 120 and 150. (5) COPD (chronic obstructive pulmonary disease): Code(s): J44.9 - Chronic obstructive pulmonary disease, unspecified Status: Acute Assessment and Plan: She has inhalers as needed Subjective Date/time seen: 09/24/22 11:39 Interval history: patient is alert. She is feeling okay calm and comfortable but still not oriented Review of Systems Cardiovascular: Cardiovascular: Reports no additional cardiovascular complaints Respiratory: Respiratory: Reports no additional respiratory complaints Gastrointestinal: Gastrointestinal: Reports no additional gastrointestinal complaints Genitourinary: Genitourinary: Reports no additional female genitourinary complaints Exam Narrative: WDWN in NAD skin no rash head ncat lungs clear cor reg no rub abd BS+ nontender and soft ext no edema. Objective Data Vital Signs Vital Signs: Vital Signs - 24 hr 09/23/22 20:00 09/23/22 22:05 09/24/22 05:49 Temperature 97.8 F 97.6 F Pulse Rate 79 84 70 Respiratory Rate 18 16 18 Blood Pressure 148/70 H 150/76 H Pulse Oximetry 97 94 97 Oxygen Delivery Room Air 09/24/22 07:40 09/24/22 07:40 09/24/22 09:11 Temperature Pulse Rate 57 L 57 L 85 Respiratory Rate 18 18 Blood Pressure Pulse Oximetry 94 Oxygen Delivery Room Air 09/24/22 08:00 09/23/22 15:30 Temperature Pulse Rate Respiratory Rate Blood Pressure Pulse Oximetry Oxygen Delivery Room Air Room Air Intake/Output Intake/Output: Intake & Output 09/21/22 09/22/22 09/23/22 09/24/22 23:59 23:59 23:59 23:59 Intake Total 2510 1000 440 Output Total 0 1900 1900 Balance 0 610 1000 -1460 Meds/Results Medications: Active Medications Generic Name Dose Route Start Last Admin Trade Name Freq PRN Reason Stop Dose Admin Acetaminophen 650 mg 09/21/22 18:31 09/24/22 09:17 Acetaminophen 325 Mg Tablet PO 650 mg Q4H PRN Administration Mild Pain (1-3) or Fever Albuterol 1 puff 09/21/22 21:00 Albuterol Sulfate (*Sp) Aerosol 1 Puff INHALATION QID PRN Dyspnea Ferrous Sulfate 324 mg 09/22/22 09:00 09/24/22 09:11 Ferrous Sulfate 324 Mg Tablet PO 324 mg DAILY DELILAH Administration Sodium Chloride 1,000 mls @ 65 mls/hr 09/21/22 18:35 09/24/22 09:12 Normal Saline Iv IV CONT 65 mls/hr .[id number] DELILAH Administration Levothyroxine Sodium 25 mcg 09/22/22 06:30 09/24/22 06:13 Levothyroxine Sodium 25 Mcg Tablet PO 25 mcg DAILY@0630 DELILAH Administration Metoprolol Tartrate 25 mg 09/22/22 09:00 09/24/22 09:11 Metoprolol Tartrate 25 Mg Tablet PO 25 mg DAILY DELILAH Administration Midodrine 2.5 mg 09/22/22 09:00 09/24/22 09:11 Midodrine Hcl 2.5 Mg Tablet PO 2.5 mg
[2022-09-24] MEDS: POTASSIUM CHLORIDE 20 MEQ PACKET (FOR LIQUID) 40 MEQ PO (13:32)
[2022-09-24 14:00] VITALS: BP 130/85; PULSE 87; RESP 18; TEMP 37.7; O2SAT 98
[2022-09-24] MEDS: POTASSIUM CHLORIDE 20 MEQ ER TABLET 40 MEQ PO (17:09)
[2022-09-24 19:46] VITALS: BP 148/73; PULSE 84; RESP 16; TEMP 37.1; O2SAT 96
[2022-09-24 20:00] VITALS: PULSE 84; RESP 16; O2SAT 96
[2022-09-25] MEDS: SODIUM CHLORIDE 0.9% IV 1,000 ML 65 ML IV CONT (02:36)
[2022-09-25 04:30] VITALS: BP 149/75; PULSE 94; RESP 16; TEMP 36.6; O2SAT 97
[2022-09-25] MEDS: LEVOTHYROXINE SODIUM 25 MCG TABLET PO (05:38)
[2022-09-25 06:07] LABS: Potassium 3.9 mmol/L (3.4-5.0)
[2022-09-25] MEDS: UMECLIDINIUM/VILANTEROL 62.5-25 MCG ELLIPTA 1 PUFF INHALATION (07:50)
[2022-09-25 07:55] VITALS: PULSE 93; RESP 18; O2SAT 94
[2022-09-25 08:00] VITALS: O2SAT 91
[2022-09-25 09:01] VITALS: PULSE 88
[2022-09-25] MEDS: MIDODRINE HCL 2.5 MG TABLET PO (09:01)
[2022-09-25] MEDS: METOPROLOL TARTRATE 25 MG TABLET PO (09:01)
[2022-09-25] MEDS: FERROUS SULFATE 324 MG TABLET PO (09:01)
--- NOTE | 2022-09-25 11:32 | PM.DS ---
DS: Admitting Diagnosis Discharge Date September 25, 2022 Admitting Diagnosis Ureteral stone DS: Discharge Diagnosis Discharge Diagnosis (1) Acute on chronic renal failure: Qualifiers: Acute renal failure type: unspecified Chronic kidney disease stage: unspecified stage Qualified Code(s): N17.9 - Acute kidney failure, unspecified; N18.9 - Chronic kidney disease, unspecified Code(s): N17.9 - Acute kidney failure, unspecified; N18.9 - Chronic kidney disease, unspecified Status: Acute Assessment and Plan: Resolved. Hypokalemia noted. Will replace and likely send home tomorrow (2) Hydronephrosis with urinary obstruction due to ureteral calculus: Code(s): N13.2 - Hydronephrosis with renal and ureteral calculous obstruction Status: Acute Assessment and Plan: Status post stent placement. Doing well. Will need to follow up with Urology. Creatinine now normal (3) Hypothyroidism: Qualifiers: Hypothyroidism type: acquired Qualified Code(s): E03.9 - Hypothyroidism, unspecified Code(s): E03.9 - Hypothyroidism, unspecified Status: Acute Assessment and Plan: Continue home dose of levothyroxine (4) Hypertension: Qualifiers: Hypertension type: primary hypertension Qualified Code(s): I10 - Essential (primary) hypertension Code(s): I10 - Essential (primary) hypertension Status: Acute Assessment and Plan: Continue home medication DS: Summary Hospital Course Hospital Course: Patient came in the hospital with flank pain and found have ureteral stone. Patient underwent stent placement. Will need to follow up with Urology. No UTI was noted. No antibiotics needed. Kidney function was abnormal however resolved 24hours after her procedure. Patient can be discharged Time Spent with Patient Time attestation: Total time spent providing and/or coordinating discharge services: Exam Narrative: 62 kg BMI 19.6 Const: Other: No acute distress, well-developed well-nourished, frail, elderly HENMT: Other: Mucous membranes are dry, no oral pharyngeal erythema, fair dentition, head is normocephalic atraumatic Eyes: Other: Pupils are equal and reactive, no scleral icterus, mild conjunctival pallor Neck: Other: No JVD, no lymphadenopathy Resp: Other: Clear to auscultation bilaterally, no increased work of breathing Cardio: Other: Regular rate, regular rhythm, 2+ bilateral radial pedal pulses GI: Other: Soft, nontender, nondistended, positive bowel sounds : Other: Stratton catheter in place with no urine output Skin: Other: Generalized pallor, non jaundice Neuro: Other: Alert oriented only to 1st and middle name, no localizing neurologic deficits noted, cranial nerves seem to be grossly intact Extrem: Other: No clubbing, cyanosis or edema DS: Data Data Completed and Pending Labs on day of discharge: Labs from last 24 hours 09/25/22 05:34 Potassium 3.9 Discharge Plan Discharge Attending physician on discharge: Tanner Barlow Consulting providers: Paul Hanson; Gary Joseph Discharging Clinician: Tanner Barlow Patient Disposition: Home, Self-Care Activity: as tolerated Diet: as tolerated Patient Instructions: Antibiotic Form, Blood Thinners (DC) Stand Alone Forms: General Discharge Information Follow-up/Referrals: Gary Joseph MD [Physician] - [facility],DO Andra [Primary Care Provider] - Discharge Medications: Continued alendronate 70 mg Tablet 70 mg PO WEEKLY Rx Instructions: give on wednesday levothyroxine 25 mcg Tablet 25 mcg PO DAILY vitamin B complex [B Complex-Vitamin B12] Tablet 1 tablet PO DAILY midodrine 2.5 mg tablet 2.5 mg PO DAILY albuterol 90 mcg/actuation Aerosol 90 mcg INHALATION QID PRN (Reason: Dyspnea)
[2022-09-25 14:00] VITALS: BP 143/74; PULSE 84; RESP 18; TEMP 36.6; O2SAT 93
--- NOTE | 2022-09-25 16:57 | PC.NURSE ---
pt voided missed hat bladder scan post void showed 4ml.
== END 2022-09-25 17:50 | disposition home or self-care (01) | DRG 661 ==
LOC: ANHED 19:25 → ANH3MED 19:57
PROVIDERS: Hospitalist; Internal Medicine; Urology; Admitting Provider Internal Medicine; Emergency Provider Emergency Medicine; PCP Family Medicine; Visit Provider Chiropractor
PROC: 0T778DZ Dilation of Left Ureter with Intraluminal Device, Via Natural or Artificial Opening Endoscopic (ICD-10-PCS; CPT 52352; principal; 2022-09-22 14:30)
DX: N13.2 Hydronephrosis with renal and ureteral calculous obstruction (principal); N17.9 Acute kidney failure, unspecified; D63.1 Anemia in chronic kidney disease; E87.6 Hypokalemia; E03.9 Hypothyroidism, unspecified; E78.5 Hyperlipidemia, unspecified; F02.80 Dementia in other diseases classified elsewhere, unspecified severity, without behavioral disturbance, psychotic disturbance, mood disturbance, and anxiety; G30.9 Alzheimer's disease, unspecified; I12.9 Hypertensive chronic kidney disease with stage 1 through stage 4 chronic kidney disease, or unspecified chronic kidney disease; I34.1 Nonrheumatic mitral (valve) prolapse; J44.9 Chronic obstructive pulmonary disease, unspecified; K58.9 Irritable bowel syndrome, unspecified; M81.0 Age-related osteoporosis without current pathological fracture; N18.9 Chronic kidney disease, unspecified; Z90.5 Acquired absence of kidney; Z85.528 Personal history of other malignant neoplasm of kidney; Z79.82 Long term (current) use of aspirin; Z85.3 Personal history of malignant neoplasm of breast; Z90.49 Acquired absence of other specified parts of digestive tract; Z87.891 Personal history of nicotine dependence
CPT/HCPCS: 36415; 51702; 74018; 74176; 74420; 76775; 80048; 80069; 84132; 85025; 85027; 94640; 96361; 96365; 97161; 97165; 99285; A9270; C1758; C1769; C2617; G0378; J0690; J2704; J3010; J7030; J7040

== ENCOUNTER → 2022-10-05 16:09 | Outpatient (CLI) | payer MEDICARE, SELFPAY ==
--- NOTE | ~2022-10-05 | XR_ITS ---
Supine and upright views of the abdomen Clinical history: Left ureteral stone COMPARISON: 09/25/2022 Findings: Bowel gas pattern is nonspecific. No evidence for obstruction or free air. Left ureteral st ent is in place. There is an apparent 6 mm stone adjacent to the proximal third of the ureteral stent . Probable tiny additional left renal stone present. Scattered surgical clips are noted. Osseous stru ctures are intact. Impression: 6 mm proximal left ureteral stone, adjacent to the left ureteral stent. Probable additional small left renal stone. Reviewed, dictated and finalized at location M. Impression: 6 mm proximal left ureteral stone, adjacent to the left ureteral stent. Probable additional small left renal stone.
== END ==
PROVIDERS: PCP Nurse Practitioner Adult Health; Visit Provider Nurse Practitioner Adult Health
DX: N20.1 Calculus of ureter (principal)
CPT/HCPCS: 74018

== ENCOUNTER 2022-10-19 10:03 | Outpatient (CLI) | payer MEDICARE, SELFPAY ==
--- NOTE | 2022-10-19 10:16 | ECG_ITS ---
Measurements Intervals [place] Rate: 98 P: 83 HI: 157 QRS: 29 QRSD: 74 T: 29 QT: 351 QTc: 450 Interpretive Statements SINUS RHYTHM POSSIBLE LEFT ATRIAL ENLARGEMENT BORDERLINE ST ABNORMALITY- ANTEROLATERAL LEADS BASELINE ARTIFACT- I, II, III, AVR, AVL, AVF BORDERLINE ECG NO PREVIOUS ECG AVAILABLE FOR COMPARISON Electronically Signed On 10-19-2022 11:32:25 CDT by Lars Tolbert D.O.
[2022-10-19 11:13] LABS: Prothrombin Time 13.7 Seconds (11.1-14.7)
[2022-10-19 11:14] LABS: Partial Thromboplastin Time 33.3 SECONDS (22.3-36.8)
== END 2022-10-19 10:04 | disposition home or self-care (01) ==
LOC: ANHSURGERY 10:05
PROVIDERS: PCP Nurse Practitioner Adult Health; Visit Provider Urology
DX: N20.0 Calculus of kidney (principal); I10 Essential (primary) hypertension; Z01.818 Encounter for other preprocedural examination
CPT/HCPCS: 36415; 85610; 85730; 87086; 93005

== ENCOUNTER 2022-10-23 03:10 | Day surgery (SDC) | payer MEDICARE, SELFPAY ==
[2022-10-08 11:04] VITALS: BMI 19.7
--- NOTE | 2022-10-08 11:42 | PC.NURSE ---
PRE-OP INSTRUCTIONS, PLEASE READ CAREFULLY Report to the Outpatient Waiting Room, entrance under the green pavilion located off [facility], at time _0600_ on date _10/23/22_. Planned Procedure Time: _0730_. Time changes happen often and if your time is changed the preop area will call you the afternoon before. - You and your visitor will be asked to self-screen and do not enter if you have any COVID symptoms. - A mask is optional within the hospital at this time. Patients may have clear liquids (water, carbonated beverages, clear teas, apple juice) until 3 hours prior to surgery (0430 AM) with a maximum of 20 ounces. - No food from midnight until time of surgery Take the following medications with a SIP of water the morning of surgery: _LEVOTHYROXINE, MIDODRINE, ANORO INHALER_ DO NOT STOP ANY OF YOUR OTHER PRESCRIPTION MEDICATIONS PRIOR TO SURGERY ?EXCEPT THE FOLLOWING Medications to discontinue per DR. HEADLEY - _ASPIRIN, (daughter states 1 week prior) Date to take last dose 10/15/22_ Medications to discontinue per ANESTHESIA - _VITAMINS 3 DAYS PRIOR TO SURGERY, Date to take last dose 10/19/22_ Please no make-up, nail tristanian, hairspray, perfume, deodorant, or body powder the day of surgery. No jewelry (including any body piercings) or valuables the day of surgery, leave them at home. Please take a shower or bath the night before, or the morning of, surgery with an antibacterial soap. Wear comfortable, loose fitting clothing. - Jewelry must be removed prior to entering the operating room. Rings and piercings that are not removed may be cut off. - The hospital will not accept responsibility for valuables. - Please leave all valuables, including medications, at home the day of surgery. If you are going home after surgery, a licensed water truck driver must drive you home. - NO public transportation without another adult if you receive anesthesia. - We recommend that an adult stay with you for 24 hours following discharge. - We also recommend that you do not drive, make important decision, drink alcoholic beverages, or take any drugs that were not prescribed by your health care provider for at least 24 hours after your discharge time. Follow any additional instructions given to you from your surgeon. If you or anyone in your household have experienced Covid symptoms in the past week, please notify your surgeon or the nurse liaison at the phone number below for possible testing. Telephone instructions given to _PATIENT'S DAUGHTER (MARYSOL)_and asked if any additional questions and then verbalized understanding. Patient advised to call surgeon office or pre surgery nurse liaison [phone] if any additional questions.
--- NOTE | 2022-10-22 12:57 | WPDANESEPPF ---
Anes - Initial Pre Proc Eval Procedure: Operation Date: 10/23/22 07:30 Proposed Procedures p Left Ureteral Extracorporeal Shock Wave Lithotripsy - Danish Hameed MD Date/Time: 10/22/22 12:57 Surgeon: Danish Hameed MD Pre Op Diagnosis: left ureteral stone Patient Data Age: 82 Gender: F Height: 1.78 m Weight: 62.27 kg Allergies Allergy/AdvReac Type Severity Reaction Status Date / Time cat dander Allergy Mild Sneezing Verified 10/23/22 06:41 milk Allergy Mild Gastrointestinal Verified 10/23/22 06:41 Upset Home Medications Medication Instructions Recorded Confirmed Type Calcium + Vitamin D 1 tablet PO BID 09/21/22 10/23/22 History One-A-Day Women's 50 Plus 1 tablet PO DAILY 09/21/22 10/23/22 History albuterol 90 mcg/actuation aerosol 90 mcg inhalation QID PRN Dyspnea 09/21/22 10/08/22 History inhaler alendronate 70 mg tablet 70 mg PO WEEKLY 09/21/22 10/08/22 History aspirin 325 mg tablet 325 mg PO DAILY 09/21/22 10/23/22 History cetirizine 10 mg capsule (Zyrtec) 10 mg PO DAILY PRN Allergy Symptoms 09/21/22 10/23/22 History ferrous sulfate 325 mg (65 mg 325 mg PO DAILY 09/21/22 10/23/22 History iron) tablet levothyroxine 25 mcg tablet 37.5 mcg PO DAILY 09/21/22 10/23/22 History metoprolol tartrate 25 mg tablet 12.5 mg PO DAILY 09/21/22 10/23/22 History midodrine 2.5 mg tablet 2.5 mg PO DAILY 09/21/22 10/08/22 History umeclidinium 62.5 mcg-vilanterol 1 inh inhalation DAILY 09/21/22 10/23/22 History 25 mcg/actuation powdr for inhalation (Anoro Ellipta) vit C 250 mg-vit E 90 mg-zinc 40 1 tablet PO BID 09/21/22 10/23/22 History mg-copper 1 gk-aadzoo-oaiidd capsule (PreserVision AREDS-2) vitamin B complex (B 1 tablet PO DAILY 09/21/22 10/23/22 History Complex-Vitamin B12 tablet) ECG: Date of Service: 10/19/22 Procedure(s): CA 12 lead EKG Accession Number(s): [id number] cc: ~ ? Measurements Intervals? [place]? Rate: ? 98 ? P:? 83 GA: ? 157? QRS:? 29 QRSD: ? 74 ? T:? 29 QT: ? 351? QTc:? 450? Interpretive Statements SINUS RHYTHM POSSIBLE LEFT ATRIAL ENLARGEMENT BORDERLINE ST ABNORMALITY- ANTEROLATERAL LEADS BASELINE ARTIFACT- I, II, III, AVR, AVL, AVF BORDERLINE ECG NO PREVIOUS ECG AVAILABLE FOR COMPARISON Electronically Signed On 10-19-2022 11:32:25 CDT by Lars Tolbert D.O. Patient hx anesthesia problems: none Family hx anesthesia problems: none Results Review: All pre-operative results and documents have been reviewed as part of the pre-operative evaluation. [facility] Past Medical History Medical History (Updated 09/22/22 @ 17:39 by Paul Hanson MD) Anemia Breast cancer Breast cancer, left breast Chronic kidney disease COPD (chronic obstructive pulmonary disease) Dementia Hyperlipidemia Hypertension Hypothyroidism Irritable bowel disease Mitral valve prolapse Osteoporosis Renal cell carcinoma Surgical History Surgical History H/O partial nephrectomy left renal cell carcinoma History of nephrectomy right trauma Hx of cholecystectomy Family History Family History Other Unknown family medical history Social History Social History Social History: According nursing staff the patient lives at home alone. She has caregivers that come in the morning and the evening. Code status: Full code (per EMR) Smoking packs per day: 3 Smoking cigarettes per day: 60.0 Years smoked: 12 Smoking pack-years: 36.00 Smoking status: Former smoker Tobacco type: cigarettes Second hand tobacco smoke e
[2022-10-23] VITALS (7 sets, daily range): BP systolic 107–145; BP diastolic 64–85; PULSE 61–83; RESP 14–24; TEMP 36.1–36.3; O2SAT 97–100
--- NOTE | ~2022-10-23 | XR_ITS ---
Supine and upright views of the abdomen Clinical history: Lithotripsy COMPARISON: 10/05/2022 Findings: Bowel gas pattern is nonspecific. No evidence for obstruction or free air. Left ureteral st ent in place. 6 mm stone along the proximal third of the stent is essentially unchanged in position. Small left lower pole renal stone measures 3 mm. Scattered surgical clips are present. Osseous struct ures are intact. Impression: Left ureteral stent and proximal left ureteral stone are unchanged. Small left lower pole renal stone. Reviewed, dictated and finalized at location . Impression: Left ureteral stent and proximal left ureteral stone are unchanged. Small left lower pole renal stone.
--- NOTE | 2022-10-23 06:33 | WPDHPUPDATE1 ---
History and Physical Update Update Date/Time: 10/23/22 06:33 History and Physical has been reviewed, including an updated exam of the patient. There are NO changes in the patient's condition. Risks, benefits, and alternatives have been discussed and questions answered. Patient agrees to proceed with procedure.
[2022-10-23] MEDS: LACTATED RINGERS 1,000 ML 30 ML IV CONT (06:59)
[2022-10-23] MEDS: ceFAZolin 2 GM/D5W 50 ML 2 GM/50 ML BAG IVPB (07:36)
--- NOTE | 2022-10-23 07:49 | W.PM.PROC2 ---
Procedure Note - Detailed Date of Procedure 10/23/22 Pre-op Diagnosis Left ureteral stone Post-op Diagnosis Same Procedure Performed Left ESWL Surgeon Danish Hameed MD Anesthesia General Description of Procedure The patient was brought to the operative suite where she was placed in the supine position on the Dornier lithotripsy table. The focal point of the lithotripter was placed at a 6mm left mid-ureteral calculus. A total of 3000 shocks were delivered at a power setting of 5. There appeared to be good fragmentation of the stone. The patient tolerated the procedure well and was taken to the recovery room in good condition. Drains No Packing No Pathology None sent Complications No immediate complications Condition Stable
== END 2022-10-23 09:56 | disposition home or self-care (01) ==
PROVIDERS: PCP Nurse Practitioner Adult Health; Referring Provider Nurse Practitioner Adult Health; Visit Provider Urology
PROC: (CPT 50590; principal; 2022-10-23 07:30)
DX: N20.1 Calculus of ureter (principal); E03.9 Hypothyroidism, unspecified; I10 Essential (primary) hypertension; J44.9 Chronic obstructive pulmonary disease, unspecified
CPT/HCPCS: 50590; 36415; 74018; 85610; 85730; 87086; 93005; J0690; J2405; J2704; J3010; J7120

== ENCOUNTER 2022-11-06 14:32 | Outpatient (CLI) | payer MEDICARE, SELFPAY ==
--- NOTE | ~2022-11-06 | XR_ITS ---
XR abdomen/kub 1V 11/06/2022 14:53 Indication: Left ureteral stone Procedure: KUB Comparison: Comparison to multiple prior studies sequentially, with oldest reviewed study dated 09/25. Findings: There are extensive surgical changes of the abdomen. There are calcifications overlying the abdomen and pelvis, likely extrinsic to the urinary tract system. Interval removal of left internal ureteral stent. There are punctate left renal stones. The right kidney is obscured by bowel content. Moderate lumbar spondylosis with levoscoliosis. Impression: 1: Left nephrolithiasis. Reviewed, dictated and finalized at location A. Impression: 1: Left nephrolithiasis.
== END 2022-11-06 14:33 | disposition home or self-care (01) ==
PROVIDERS: PCP Nurse Practitioner Adult Health; Visit Provider Urology
DX: N20.0 Calculus of kidney (principal)
CPT/HCPCS: 74018

== ENCOUNTER 2022-12-09 12:07 | Emergency (ER) | payer MEDICARE, SELFPAY ==
[2022-12-09] VITALS (11 sets, daily range): BP systolic 127–141; BP diastolic 68–98; PULSE 72–110; RESP 15–21; TEMP 36.6; O2SAT 99–100
--- NOTE | ~2022-12-09 | CT_ITS ---
EXAMINATION: CT abdomen pelvis wo con DATE: 12/09/2022 14:24 INDICATION: Flank pain TECHNIQUE: Computed tomography (CT) of the abdomen and pelvis was performed without intravenous contr ast. Automated exposure control and iterative reconstruction technique were employed. The dose-length product was 258.12 mGy-cm. COMPARISON: 09/21/2022 FINDINGS: Relatively stable appearance of chronic scarring with associated bronchiectasis in the anterobasilar segment of the right lower lobe and inferolateral aspect of the lingula. Additional stable appearance of peripheral likely pleural parenchymal scarring at the lateral right middle lobe. There is some mu cous plugging within the medial right middle lobe. Additional bronchiectasis in the left lower lobe w ith some scattered mucous plugging and dependently layering fluid in one of the dilated bronchi. Ther e is a cluster of small nodules in the posterolateral left lower lobe and the region of a larger 13 x 10 mm nodule. Heart size is normal. Atherosclerotic coronary artery calcific lesion. No pericardial or pleural effusion. Cholecystectomy clips the gallbladder fossa. Status post right nephrectomy with surgical clips at the nephrectomy bed. There are multiple additional surgical clips along the left adrenal gland and in th e left periaortic region. Liver, spleen, pancreas and bilateral adrenal glands are normal. Likely com pensatory hypertrophy of the left kidney with several hypodense left renal cysts, the largest measuri ng up to 2.0 cm with additional 1.2 cm hyperdense likely proteinaceous/hemorrhagic cyst at the upper pole of the left kidney. Nonobstructing stones measuring 2 mm the upper pole and 1 mm at the lower po le of the left kidney. No ureteral stones or hydronephrosis. There are multiple scattered colonic div erticula without adjacent inflammatory stranding to suggest diverticulitis. Small bowel and appendix are normal. Bladder and retroverted uterus are unremarkable. No free intraperitoneal gas or fluid. No pathologically enlarged abdominal or pelvic lymphadenopathy. No interval change in several sclerotic bone islands in the pelvis and L4 vertebral body. Unchanged enchondroma with typical pattern of elvis droid matrix at the intratrochanteric right femur. IMPRESSION: 1. Nonobstructing left nephrolithiasis. Status post right nephrectomy. 2. Diverticulosis. 3. Indeterminate 13 x 10 mm nodule most a cluster of smaller nodules in the left lower lobe which fav ors an infectious/inflammatory etiology although malignancy cannot be excluded. Plate with any prior outside institution imaging. Otherwise would recommend further evaluation with either PET/CT or 3 mon th follow-up chest CT. 4. Bronchiectasis with stable appearance of scattered atelectasis/scarring in the bilateral lower kailee gs. Reviewed, dictated and finalized at location A. IMPRESSION: 1. Nonobstructing left nephrolithiasis. Status post right nephrectomy. 2. Diverticulosis. 3. Indeterminate 13 x 10 mm nodule most a cluster of smaller nodules in the lef t lower lobe which favors an infectious/inflammatory etiology although malignan cy cannot be excluded. Plate with any prior outside institution imaging. Otherw ise would recommend further evaluation with either PET/CT or 3 month follow-up chest CT. 4. Bronchiectasis with stable appearance of scattered atelectasis/scarring in t he bilateral lower lungs.
--- NOTE | ~2022-12-09 | XR_ITS ---
EXAMINATION: XR lumbar spine 2-3V DATE: 12/09/2022 13:46 INDICATION: Right-sided low back pain TECHNIQUE: Anteroposterior and lateral views of the lumbar spine, and cone-down lateral view of the l umbosacral junction were obtained. COMPARISON: None. FINDINGS: 10 degrees lumbar levoscoliosis. 5 mm anterolisthesis L4 over L5. 3 to 4 mm retrolisthesis L5 on S1. Vertebral body heights are normal. Severe disc height loss with right anterior sclerotic degenerative endplate changes at L2-L3. Moderate disc height loss at L3-L4 and mild to moderate disc height loss at L4-L5. Moderate to severe lower lumbar facet osteoarthritis. Mild bilateral sacroiliac osteoarthri tis. Sclerotic bone islands at L4, the right iliac crest and left sacrum. Surgical clips in the abdom en. IMPRESSION: 1. Mild lumbar levoscoliosis with severe spondylosis. Reviewed, dictated and finalized at location A.
[2022-12-09] MEDS: traMADol HCL (*CRX) 50 MG TABLET PO (13:20)
[2022-12-09 14:01] LABS: Appearance Urine Clear (Clear); Bacteria Urine None Seen /hpf; Bilirubin Urine Negative (Negative); Blood Urine Negative (Negative); Color Urine Dark Yellow (Yellow); Glucose Urine UA Negative (Negative); Hyaline Casts Urine Present /lpf; Ketones Urine Trace mg/dL (Negative); Leukocyte Esterase Ur Negative LEU/UL (Negative); Mucus Urine Present /lpf; Nitrate Urine Negative (Negative); Non Pathogenic Casts 0-2; Protein Urine Trace mg/dL (Negative); Squamous Epithelial Cell Urine None seen /hpf (Few); WBC Urine 0-5 /hpf
[2022-12-09 14:04] LABS: Add Urine Microscopic? YES
--- NOTE | 2022-12-09 14:11 | ED.GENADULT ---
HPI - General Adult General Chief complaint: Back Pain/Injury Stated complaint: hip pain Time Seen by Provider: 12/09/22 12:28 History of Present Illness HPI narrative: Patient is a 89-year-old female who presents ER with low back pain. Ongoing over the last few days. Aching over the posterior superior iliac spine. Additionally has pain down into her buttock where she has some early developing decubitus ulcers. Family concerned it could represent kidney stone as she has had issues in the past. Patient reports no dysuria. Some of her history is limited however due to her dementia. Family reports patient has a chair she sits and regularly that is in need of cushion replacement. Related Data Home Medications Medication Instructions Recorded Confirmed Calcium + Vitamin D 1 tablet PO BID 09/21/22 10/23/22 One-A-Day Women's 50 Plus 1 tablet PO DAILY 09/21/22 10/23/22 albuterol 90 mcg/actuation aerosol 90 mcg inhalation QID PRN Dyspnea 09/21/22 10/08/22 inhaler alendronate 70 mg tablet 70 mg PO WEEKLY 09/21/22 10/08/22 aspirin 325 mg tablet 325 mg PO DAILY 09/21/22 10/23/22 cetirizine 10 mg capsule (Zyrtec) 10 mg PO DAILY PRN Allergy Symptoms 09/21/22 10/23/22 ferrous sulfate 325 mg (65 mg 325 mg PO DAILY 09/21/22 10/23/22 iron) tablet levothyroxine 25 mcg tablet 37.5 mcg PO DAILY 09/21/22 10/23/22 metoprolol tartrate 25 mg tablet 12.5 mg PO DAILY 09/21/22 10/23/22 midodrine 2.5 mg tablet 2.5 mg PO DAILY 09/21/22 10/08/22 umeclidinium 62.5 mcg-vilanterol 1 inh inhalation DAILY 09/21/22 10/23/22 25 mcg/actuation powdr for inhalation (Anoro Ellipta) vit C 250 mg-vit E 90 mg-zinc 40 1 tablet PO BID 09/21/22 10/23/22 mg-copper 1 to-cgmsjh-kpcdum capsule (PreserVision AREDS-2) vitamin B complex (B 1 tablet PO DAILY 09/21/22 10/23/22 Complex-Vitamin B12 tablet) Allergies Allergy/AdvReac Type Severity Reaction Status Date / Time cat dander Allergy Mild Sneezing Verified 12/09/22 12:12 milk Allergy Mild Gastrointestinal Verified 12/09/22 12:12 Upset Review of Systems Review of Systems: ROS unobtainable: Yes unobtainable due to mental status PMFSH Past Medical History Medical History (Updated 12/09/22 @ 16:07 by Charlie Olivera MD) Anemia Breast cancer Breast cancer, left breast Chronic kidney disease COPD (chronic obstructive pulmonary disease) Dementia Hyperlipidemia Hypertension Hypothyroidism Irritable bowel disease Mitral valve prolapse Osteoporosis Renal cell carcinoma Surgical History Surgical History H/O partial nephrectomy left renal cell carcinoma History of nephrectomy right trauma Hx of cholecystectomy Family History Family History Other Unknown family medical history Social History Social History Social History: According nursing staff the patient lives at home alone. She has caregivers that come in the morning and the evening. Code status: Full code (per EMR) Smoking packs per day: 3 Smoking cigarettes per day: 60.0 Years smoked: 12 Smoking pack-years: 36.00 Smoking status: Former smoker Tobacco type: cigarettes Second hand tobacco smoke exposure: No Smoking end date: 04/12/71 Alcohol intake: never Substance use: never Substance use type: does not use Lack of Transportation: No Lack of Food: Never True Current Housing: I Have Housing Concerned About Future Housing: No Difficulty Paying Gas/Electric Bills: No Difficulty Paying for Meds: No Currently Unemployed: No Education: Don't Know Difficulty w/ Childcare or Family Care: No Additional living arrangements comments: PT' LIVES WITH DAUGHTER WEDNESDAY-WEDNESDAY PT LIVES @ HOME WITH AM & PM CAREGIVER WEDNESDAY-WEDNESDAY Spiritual care concerns: No Exam Narrative: GENERAL: Chronically ill-appeari
== END 2022-12-09 17:00 | disposition home or self-care (01) ==
PROVIDERS: Emergency Provider Emergency Medicine; PCP Family Medicine
DX: J18.9 Pneumonia, unspecified organism (principal); L89.109 Pressure ulcer of unspecified part of back, unspecified stage; J44.9 Chronic obstructive pulmonary disease, unspecified; F03.90 Unspecified dementia, unspecified severity, without behavioral disturbance, psychotic disturbance, mood disturbance, and anxiety; E03.9 Hypothyroidism, unspecified; I12.9 Hypertensive chronic kidney disease with stage 1 through stage 4 chronic kidney disease, or unspecified chronic kidney disease; N18.9 Chronic kidney disease, unspecified; Z85.3 Personal history of malignant neoplasm of breast; Z87.891 Personal history of nicotine dependence
CPT/HCPCS: 72100; 74176; 81001; 99284; A9270

== ENCOUNTER 2023-01-28 17:35 | Emergency (ER) | payer MEDICARE, SELFPAY ==
--- NOTE | ~2023-01-28 | CT_ITS ---
CT head without contrast Indication: Altered mental status Technique: Serial scans were obtained through the brain without the administration of contrast. Dose reduction technique was used on this scan by utilizing automated exposure control and iterative recon struction technique. The dose-length product (DLP) was 681.00 mGy-cm. Findings: There is no evidence of intracranial hemorrhage, mass lesion, or acute infarct. The ventri cles and subarachnoid spaces are dilated, consistent with minimal atrophy. Low attenuation regions a re seen within the periventricular white matter bilaterally, likely representing changes from chronic microvascular ischemic disease. There is no evidence of edema, mass effect or midline shift. The v isualized paranasal sinuses and mastoid air cells are clear. Impression: No intracranial hemorrhage, mass, or acute infarct. Atrophy and chronic white matter changes, as above. Reviewed, dictated and finalized at location . Impression: No intracranial hemorrhage, mass, or acute infarct. Atrophy and chronic white matter changes, as above.
--- NOTE | ~2023-01-28 | XR_ITS ---
Portable chest x-ray Comparison: None Clinical History: Left Findings: There is hazy airspace consolidation right lung base. There are minimal interstitial opaci ties the lung bases and perihilar regions. No pleural effusion or pneumothorax. Cardiomediastinal si lhouette is stable. Bones and soft tissues are unremarkable. Impression: Right lower lobe pneumonia. Possible minimal interstitial prominence the lung bases and perihilar regions, nonspecific. Reviewed, dictated and finalized at location M. Impression: Right lower lobe pneumonia. Possible minimal interstitial prominence the lung bases and perihilar regions, nonspecific.
--- NOTE | ~2023-01-28 | CT_ITS ---
Non-contrast CT scan of the Abdomen and Pelvis Clinical indication: Urinary frequency, history of stones Technique: 2.5 mm axial scans were obtained through the abdomen and pelvis without intravenous or or al contrast. Dose reduction technique was used on this scan by utilizing automated exposure control a nd iterative reconstruction technique. The dose-length product (DLP) was 266.11 mGy-cm. COMPARISON: 12/09/2022 Findings: Images through the lung bases reveal right lower lobe tree-in-bud opacities, as well as ar eas of more chronic appearing scarring in the right middle lobe, lingula, and right lower lobe. There is focal area of bronchiectatic change in the right lower lobe.. Patient is status post right nephrectomy. Small nonobstructing left renal stones are present. There a re areas of probable left renal cortical scarring and small left renal cysts. The liver, spleen, pancreas, and adrenals appear normal. Cholecystectomy clips are present. There is no aortic aneurysm. There is no evidence of bowel obstruction. Images through the pelvis were performed. There is no evidence of ascites or lymphadenopathy. Urinary bladder is unremarkable. No pelvic mass seen. No ascites. Impression: Small nonobstructing left renal stones with areas of left renal cortical scarring and left renal cyst s. No ureteral stone or hydronephrosis evident. Status post right nephrectomy. Findings at the lung bases consistent with acute on chronic small airways infection, such as HARITHA. The se are stable in appearance from prior exam. Reviewed, dictated and finalized at [facility]. Impression: Small nonobstructing left renal stones with areas of left renal cortical scarri ng and left renal cysts. No ureteral stone or hydronephrosis evident. Status post right nephrectomy. Findings at the lung bases consistent with acute on chronic small airways infec tion, such as HARITHA. These are stable in appearance from prior exam.
[2023-01-28 17:59] VITALS: BP 131/66; PULSE 89; RESP 18; TEMP 36.6; O2SAT 99
--- NOTE | 2023-01-28 18:05 | ECG_ITS ---
Measurements Intervals [place] Rate: 84 P: 91 GA: 163 QRS: 68 QRSD: 72 T: 25 QT: 363 QTc: 431 Interpretive Statements SINUS RHYTHM WITH OCCASIONAL SUPRAVENTRICULAR PREMATURE COMPLEXES POSSIBLE RIGHT VENTRICULAR CONDUCTION DELAY [RSR (QR) IN V1/V2] COMPARED TO ECG 10/19/2022 10:47:06 NO SIGNIFICANT CHANGES Electronically Signed On 01-29-2023 7:45:35 CDT by Annika Randhawa MD
[2023-01-28 18:13] LABS: Basophils Percent Auto 0.7 % (0.2-1.2); Eosinophils Absolute Auto 0.2 K/mm3 (0-0.3); Eosinophils Percent Auto 3.1 % (0-4.4); Hematocrit 38.7 % (37.0-47.0); Hemoglobin 12.1 g/dL (12.0-15.0); Immature Granulocyte Absolute 0.01 K/mm3 (0.00-0.031); Immature Granulocyte Percent A 0.2 % (0-0.5); Lymphocytes Absolute Auto 1.68 K/mm3 (0.9-3.2); Mean Corpuscular HGB Conc 31.3 g/dl (32-36); Mean Corpuscular Hemoglobin 30.9 pg (26-34); Mean Platelet Volume 10.4 fl (7.4-10.4); Monocytes Absolute Auto 0.6 K/mm3 (0.1-0.6); Monocytes Percent Auto 10.9 % (2.6-8.5); Neutrophils Absolute Auto 3.3 K/mm3 (1.3-6.7); Neutrophils Percent Auto 56.1 % (45.5-73.1); Platelet Count Result 240 k/mm3 (150-375); Red Blood Count 3.91 M/mm3 (4.2-5.4); Red Cell Distribution Width 13.7 % (11.5-14.5); White Blood Count 5.8 K/mm3 (4.5-10.0)
[2023-01-28 18:24] LABS: Partial Thromboplastin Time 28.7 SECONDS (22.3-36.8); Prothrombin Time 13.6 Seconds (11.1-14.7)
[2023-01-28 18:30] LABS: Alanine Aminotransferase 17 U/L (6-35); Albumin Level 3.9 g/dL (3.5-5.1); Alkaline Phosphatase 55 U/L (38-126); Anion Gap 4 mmol/L (8-16); Aspartate Amino Transferase 28 U/L (14-36); Bilirubin,Total 0.4 mg/dL (0.2-1.3); Blood Urea Nitrogen 16 mg/dL (7-17); Carbon Dioxide 27 mmol/L (22-30); Chloride 109 mmol/L (98-107); Estimated CRCL calculation 66 ml/min; Estimated Glomerular Filt Rate > 60; Glucose 102 mg/dL (65-110); Potassium 3.5 mmol/L (3.4-5.0); Sodium 140 mmol/L (137-145)
[2023-01-28 18:51] LABS: Appearance Urine Cloudy (Clear); Bacteria Urine None Seen /hpf; Bilirubin Urine Negative (Negative); Blood Urine Negative (Negative); Calcium Oxalate Crystals Urine Present /hpf; Color Urine Yellow (Yellow); Glucose Urine UA Negative (Negative); Ketones Urine Negative (Negative); Leukocyte Esterase Ur 1+ LEU/UL (Negative); Need Manual Microscopic Reviewed; Nitrate Urine Negative (Negative); Non Pathogenic Casts 0-2; Protein Urine Negative (Negative); RBC Urine 0-2 /hpf (0-2); Specific Grav Ur 1.023 (1.001-1.035); Squamous Epithelial Cell Urine None seen /hpf (Few); WBC Urine 0-5 /hpf; pH Urine 5.5 (5.0-9.0)
[2023-01-28 18:52] LABS: Add Urine Microscopic? YES
[2023-01-29 00:30] VITALS: BP 127/85; PULSE 73; RESP 20; O2SAT 98
--- NOTE | 2023-01-29 00:38 | ED.GENADULT ---
HPI - General Adult General Chief complaint: Altered Mental Status Stated complaint: Confusion/ UTI Time Seen by Provider: 01/28/23 23:09 History of Present Illness HPI narrative: Patient is a 82-year-old female who presents the emergency department with chief complaint of altered mental status. Patient has prior history of dementia but over the last several weeks the family has noticed that she has been more confused than normal they also report that she had increasing urinary frequency and reports that that they have had a more difficult time communicating with her. They report no fever no vomiting no diarrhea. Related Data Home Medications Medication Instructions Recorded Confirmed Calcium + Vitamin D 1 tablet PO BID 09/21/22 10/23/22 One-A-Day Women's 50 Plus 1 tablet PO DAILY 09/21/22 10/23/22 albuterol 90 mcg/actuation aerosol 90 mcg inhalation QID PRN Dyspnea 09/21/22 10/08/22 inhaler alendronate 70 mg tablet 70 mg PO WEEKLY 09/21/22 10/08/22 aspirin 325 mg tablet 325 mg PO DAILY 09/21/22 10/23/22 cetirizine 10 mg capsule (Zyrtec) 10 mg PO DAILY PRN Allergy Symptoms 09/21/22 10/23/22 ferrous sulfate 325 mg (65 mg 325 mg PO DAILY 09/21/22 10/23/22 iron) tablet levothyroxine 25 mcg tablet 37.5 mcg PO DAILY 09/21/22 10/23/22 metoprolol tartrate 25 mg tablet 12.5 mg PO DAILY 09/21/22 10/23/22 midodrine 2.5 mg tablet 2.5 mg PO DAILY 09/21/22 10/08/22 umeclidinium 62.5 mcg-vilanterol 1 inh inhalation DAILY 09/21/22 10/23/22 25 mcg/actuation powdr for inhalation (Anoro Ellipta) vit C 250 mg-vit E 90 mg-zinc 40 1 tablet PO BID 09/21/22 10/23/22 mg-copper 1 qz-clovgq-rancae capsule (PreserVision AREDS-2) vitamin B complex (B 1 tablet PO DAILY 09/21/22 10/23/22 Complex-Vitamin B12 tablet) Allergies Allergy/AdvReac Type Severity Reaction Status Date / Time cat dander Allergy Mild Sneezing Verified 12/09/22 12:12 milk Allergy Mild Gastrointestinal Verified 12/09/22 12:12 Upset Review of Systems Review of Systems: A 10 system review of systems was completed on the patient and is negative except for what is stated in the HPI. Nursing and ancillary documentation was reviewed. [facility] Past Medical History Medical History Anemia Breast cancer Breast cancer, left breast Chronic kidney disease COPD (chronic obstructive pulmonary disease) Dementia Hyperlipidemia Hypertension Hypothyroidism Irritable bowel disease Mitral valve prolapse Osteoporosis Renal cell carcinoma Surgical History Surgical History H/O partial nephrectomy left renal cell carcinoma History of nephrectomy right trauma Hx of cholecystectomy Family History Family History Other Unknown family medical history Social History Social History Social History: According nursing staff the patient lives at home alone. She has caregivers that come in the morning and the evening. Code status: Full code (per EMR) Smoking packs per day: 3 Smoking cigarettes per day: 60.0 Years smoked: 12 Smoking pack-years: 36.00 Smoking status: Former smoker Tobacco type: cigarettes Second hand tobacco smoke exposure: No Smoking end date: 04/12/71 Alcohol intake: never Substance use: never Substance use type: does not use Lack of Transportation: No Lack of Food: Never True Current Housing: I Have Housing Concerned About Future Housing: No Difficulty Paying Gas/Electric Bills: No Difficulty Paying for Meds: No Currently Unemployed: No Education: Don't Know Difficulty w/ Childcare or Family Care: No Additional living arrangements comments: PT' LIVES WITH DAUGHTER WEDNESDAY-WEDNESDAY PT LIVES @ HOME WITH AM & PM CAREGIVER WEDNESDAY-WEDNESDAY Spiritual care
[2023-01-29] MEDS: SODIUM CHLORIDE 0.9% IV 1,000 ML 999 ML IV CONT (02:50)
[2023-01-29 04:18] LABS: Troponin I < 0.012 ng/mL (0.000-0.034)
[2023-01-29 05:12] VITALS: BP 115/100; PULSE 110; RESP 15; O2SAT 96
[2023-01-29 05:23] VITALS: BP 121/88
[2023-01-29] MEDS: AZITHROMYCIN 250 MG TABLET 500 MG PO (06:16)
[2023-01-29] MEDS: CEFDINIR 300 MG CAPSULE PO (06:17)
[2023-01-29 06:40] VITALS: BP 125/72; PULSE 75; RESP 15; O2SAT 98
== END 2023-01-29 07:09 | disposition home or self-care (01) ==
PROVIDERS: Emergency Medicine; Emergency Provider Emergency Medicine; PCP Family Medicine
DX: J18.9 Pneumonia, unspecified organism (principal); R41.82 Altered mental status, unspecified; F03.90 Unspecified dementia, unspecified severity, without behavioral disturbance, psychotic disturbance, mood disturbance, and anxiety; I12.9 Hypertensive chronic kidney disease with stage 1 through stage 4 chronic kidney disease, or unspecified chronic kidney disease; N18.9 Chronic kidney disease, unspecified; I34.1 Nonrheumatic mitral (valve) prolapse; J44.9 Chronic obstructive pulmonary disease, unspecified; D64.9 Anemia, unspecified; E78.5 Hyperlipidemia, unspecified; E03.9 Hypothyroidism, unspecified; K58.9 Irritable bowel syndrome, unspecified; M81.0 Age-related osteoporosis without current pathological fracture; Z85.3 Personal history of malignant neoplasm of breast; Z85.528 Personal history of other malignant neoplasm of kidney; Z87.891 Personal history of nicotine dependence; Z90.5 Acquired absence of kidney; Z90.49 Acquired absence of other specified parts of digestive tract; Z79.82 Long term (current) use of aspirin; I49.1 Atrial premature depolarization; R94.31 Abnormal electrocardiogram [ECG] [EKG]; N20.0 Calculus of kidney; N28.1 Cyst of kidney, acquired
CPT/HCPCS: 36415; 70450; 71045; 74176; 80053; 81001; 83605; 84145; 84484; 85025; 85610; 85730; 93005; 96360; 96361; 99284; A9270; J7030

== ENCOUNTER 2023-08-31 12:32 | Inpatient (IN) | payer MEDICARE, SELFPAY ==
[2023-08-31] VITALS (15 sets, daily range): BP systolic 91–122; BP diastolic 46–70; PULSE 74–96; RESP 16–23; TEMP 36.6–37.5; O2SAT 95–100
--- NOTE | ~2023-08-31 | CT_ITS ---
EXAMINATION: CT chest abdomen pelvis wo con DATE: 08/31/2023 13:59 INDICATION: Sepsis. TECHNIQUE: Computed tomography (CT) of the chest, abdomen, and pelvis was performed without intraveno us contrast. Automated exposure control and iterative reconstruction technique were employed. The dos e-length product was 316.60 mGy-cm. COMPARISON: CT abdomen and pelvis 01/29/2023 FINDINGS: CHEST CT: There is mild scarring at the lung apices. There is mild atelectasis. There are airspace and groundgl ass opacities in right upper lobe groundglass opacities in superior segment right lower lobe. There a re centrilobular nodules and tree-in-bud opacities in all lobes with an inferior predominance. There is bronchiectasis in the lungs with an inferior predominance. No pleural effusion. The heart size is normal. There is a trace pericardial effusion. There are coronary artery calcifications. There is mil d thoracic spondylosis. There are a few scattered benign bone islands. ABDOMEN/PELVIS CT: The liver, gallbladder, pancreas, and adrenal glands are normal. There are changes of right nephrecto my. There is mild atrophy of left kidney. There are cysts in left kidney measuring up to 12 mm. There are 3 stones in left kidney measuring up to 4 mm. There is diverticulosis of the colon without evide nce of diverticulitis. The appendix is normal. There are no dilated loops of bowel. There are no path ologically enlarged lymph nodes. There is no free intraperitoneal fluid. There are few scattered benedicto gn bone islands. IMPRESSION: 1. Chronic pneumonia with acute worsening in right upper lobe and superior segment right lower lobe. Reviewed, dictated and finalized at location A. IMPRESSION: 1. Chronic pneumonia with acute worsening in right upper lobe and superior segm ent right lower lobe.
--- NOTE | 2023-08-31 12:34 | ECG_ITS ---
SEE SCANNED COPY FOR CONFIRMED REPORT MTDD
[2023-08-31 12:45] LABS: Basophils Absolute Auto 0.1 K/mm3 (0.0-0.1); Basophils Percent Auto 0.3 % (0.2-1.2); Hematocrit 40.7 % (37.0-47.0); Immature Granulocyte Absolute 0.26 K/mm3 (0.00-0.031); Immature Granulocyte Percent A 0.8 % (0-0.5); Lymphocytes Absolute Auto 0.75 K/mm3 (0.9-3.2); Lymphocytes Percent Auto 2.3 % (18.3-44.2); Mean Corpuscular HGB Conc 31.9 g/dl (32-36); Mean Corpuscular Hemoglobin 32.5 pg (26-34); Mean Corpuscular Volume 101.8 fl (80-100); Mean Platelet Volume 10.2 fl (7.4-10.4); Monocytes Absolute Auto 1.6 K/mm3 (0.1-0.6); Monocytes Percent Auto 4.9 % (2.6-8.5); Neutrophils Absolute Auto 30.1 K/mm3 (1.3-6.7); Neutrophils Percent Auto 91.7 % (45.5-73.1); Platelet Count Result 290 k/mm3 (150-375); Red Cell Distribution Width 12.5 % (11.5-14.5); White Blood Count 32.8 K/mm3 (4.5-10.0)
[2023-08-31 12:56] LABS: Prothrombin Time 13.8 Seconds (11.1-14.7)
[2023-08-31 12:57] LABS: Partial Thromboplastin Time 32.3 Seconds (22.3-36.8)
--- NOTE | 2023-08-31 13:10 | ED.GENADULT ---
HPI - General Adult General Chief complaint: Altered Mental Status Stated complaint: ams Time Seen by Provider: 08/31/23 12:43 History of Present Illness HPI narrative: This is an 83-year-old female with history of severe dementia presenting for altered mental status. Her son Enio Hoffmann (primary crime data specialist) says over the last 24 hours she has had decreased urination, increased confusion weakness and dyspnea exertion. She frequently gets urinary tract infections. the patient's son says that she has a chronic pneumonia that is typically there on imaging. He says that she gets her pulmonology care from [facility] with Dr. Bedolla The patient herself is a poor historian. She is alert to her 1st name only. She has no complaints at this time but cannot contribute meaningfully to the interview. Patient is DNR DNI but antibiotics/pressors okay. Related Data Home Medications Medication Instructions Recorded Confirmed Calcium + Vitamin D 1 tablet PO BID 09/21/22 10/23/22 One-A-Day Women's 50 Plus 1 tablet PO DAILY 09/21/22 10/23/22 albuterol 90 mcg/actuation aerosol 90 mcg inhalation QID PRN Dyspnea 09/21/22 10/08/22 inhaler alendronate 70 mg tablet 70 mg PO WEEKLY 09/21/22 10/08/22 aspirin 325 mg tablet 325 mg PO DAILY 09/21/22 10/23/22 cetirizine 10 mg capsule (Zyrtec) 10 mg PO DAILY PRN Allergy Symptoms 09/21/22 10/23/22 ferrous sulfate 325 mg (65 mg 325 mg PO DAILY 09/21/22 10/23/22 iron) tablet levothyroxine 25 mcg tablet 37.5 mcg PO DAILY 09/21/22 10/23/22 metoprolol tartrate 25 mg tablet 12.5 mg PO DAILY 09/21/22 10/23/22 midodrine 2.5 mg tablet 2.5 mg PO DAILY 09/21/22 10/08/22 umeclidinium 62.5 mcg-vilanterol 1 inh inhalation DAILY 09/21/22 10/23/22 25 mcg/actuation powdr for inhalation (Anoro Ellipta) vit C 250 mg-vit E 90 mg-zinc 40 1 tablet PO BID 09/21/22 10/23/22 mg-copper 1 vu-qipwrp-rpveml capsule (PreserVision AREDS-2) vitamin B complex (B 1 tablet PO DAILY 09/21/22 10/23/22 Complex-Vitamin B12 tablet) Allergies Allergy/AdvReac Type Severity Reaction Status Date / Time cat dander Allergy Mild Sneezing Verified 12/09/22 12:12 milk Allergy Mild Gastrointestinal Verified 12/09/22 12:12 Upset PMFSH Past Medical History Medical History Anemia Breast cancer Breast cancer, left breast Chronic kidney disease COPD (chronic obstructive pulmonary disease) Dementia Hyperlipidemia Hypertension Hypothyroidism Irritable bowel disease Mitral valve prolapse Osteoporosis Renal cell carcinoma Surgical History Surgical History H/O partial nephrectomy left renal cell carcinoma History of nephrectomy right trauma Hx of cholecystectomy Family History Family History Other Unknown family medical history Social History Social History Social History: According nursing staff the patient lives at home alone. She has caregivers that come in the morning and the evening. Code status: Full code (per EMR) Smoking packs per day: 3 Smoking cigarettes per day: 60.0 Years smoked: 12 Smoking pack-years: 36.00 Smoking status: Former smoker Tobacco type: cigarettes Second hand tobacco smoke exposure: No Smoking end date: 04/12/71 Alcohol intake: never Substance use: never Substance use type: does not use Lack of Transportation: No Lack of Food: Never True Current Housing: I Have Housing Concerned About Future Housing: No Difficulty Paying Gas/Electric Bills: No Difficulty Paying for Meds: No Currently Unemployed: No Education: Don't Know Difficulty w/ Childcare or Family Care: No Additional living arrangements comments: PT' LIVES WITH DAUGHTER WEDNESDAY-WEDNESDAY PT LIVES @ HOME WITH AM & PM CAREGIVER WEDNESDAY-WEDNESDAY [place]
[2023-08-31 13:14] LABS: Albumin Level 4.4 g/dL (3.5-5.1); Alkaline Phosphatase 74 U/L (38-126); Anion Gap 14 mmol/L (4-12); Aspartate Amino Transferase 38 U/L (14-36); Bilirubin,Total 0.8 mg/dL (0.2-1.3); Blood Urea Nitrogen 23 mg/dL (7-17); Calcium 9.3 mg/dL (8.4-10.2); Carbon Dioxide 21 mmol/L (22-30); Chloride 105 mmol/L (98-107); Estimated CRCL calculation 38 ml/min; Estimated Glomerular Filt Rate 60; Glucose 172 mg/dL (65-110); Potassium 3.6 mmol/L (3.4-5.0); Sodium 140 mmol/L (137-145)
[2023-08-31 13:26] LABS: Alanine Aminotransferase 27 U/L (6-35)
[2023-08-31 13:36] LABS: Appearance Urine Clear (Clear); Bilirubin Urine Negative (Negative); Blood Urine Negative (Negative); Color Urine Yellow (Yellow); Glucose Urine UA Negative (Negative); Ketones Urine Negative (Negative); Leukocyte Esterase Ur Negative LEU/UL (Negative); Nitrate Urine Negative (Negative); Protein Urine Negative (Negative); Specific Grav Ur 1.015 (1.001-1.035); pH Urine 5.5 (5.0-9.0)
[2023-08-31 13:38] LABS: Add Urine Microscopic? NO
[2023-08-31 14:06] LABS: Influenza A QL RT-PCR Negative (Negative); Influenza B QL RT-PCR Negative (Negative); RSV RNA, RT-PCR Negative (Negative); SARS-CoV-2 RNA PCR Negative (Negative)
[2023-08-31] MEDS: SODIUM CHLORIDE 0.9% IV 2,000 ML 999 ML IV CONT (14:51)
[2023-08-31] MEDS: AZITHROMYCIN 500 MG/NS 250 ML 500 MG/250 ML BAG 250 MG IVPB (15:14)
--- NOTE | 2023-08-31 15:21 | PM.IMHP ---
H&P: HPI History of Present Illness Date/Time: 08/31/23 21:15 Chief Complaint: Altered mental status. Narrative: This is an 83-year-old female with history of dementia, left unilateral kidney, chronic kidney disease, hypertension, hypothyroidism, chronic obstructive pulmonary disease, and osteoporosis who presented to the emergency department for evaluation of altered mental status. She is unable to provide any meaningful history and her son provides the majority the following. The patient has been more confused from baseline the past day and son has noticed that she has had decreased urine output, increasing weakness, and dyspnea with exertion. At the time of my evaluation she is resting comfortably in bed. She was confused and did not answer questions appropriately. She did say that she was not having any pain nor which she feeling short of breath. In the ED: She was afebrile on arrival with a blood pressure of 91/52. SpO2 is in the mid 90s since arrival. Labs were significant for a WBC count of 32.8, hemoglobin 13.0, MCV 101.8, platelet 290, lactic acid 4.0, BUN 20, creatinine 0.90. Urinalysis was unremarkable. She tested negative for influenza, RSV, and COVID. CT of the chest, abdomen, and pelvis showed chronic pneumonia with acute worsening in the right upper lobe and superior segment right lower lobe. She was started on azithromycin ceftriaxone she is being admitted in this setting for further treatment. Review of Systems Review of Systems: Unable to obtain accurately given the patient's clinical condition. [facility] Past Medical History Medical History (Updated 08/31/23 @ 15:24 by Zahira Julien PA-C) Anemia Breast cancer, left breast Chronic kidney disease Chronic obstructive pulmonary disease Chronic pneumonia Dementia Hyperlipidemia Hypertension Hypothyroidism Irritable bowel disease Mitral valve prolapse Osteoporosis Renal cell carcinoma Surgical History Surgical History (Updated 08/31/23 @ 15:22 by Zahira Julien PA-C) History of cholecystectomy History of nephrectomy Right nephrectomy following trauma. History of partial nephrectomy Left renal cell carcinoma. Family History Family History Mother Dementia Sibling Cancer Other Unknown family medical history Social History Social History (Updated 08/31/23 @ 21:29 by Zahira Julien PA-C) Social History: Surrogate medical decision maker: Nataly Hoffmann, daughter. Code status: Modified code, medications only. Smoking packs per day: 3 Smoking cigarettes per day: 60.0 Years smoked: 12 Smoking pack-years: 36.00 Smoking status: Former smoker Second hand tobacco smoke exposure: No Alcohol intake: never Substance use: never Substance use type: does not use Lack of Transportation: No Lack of Food: Never True Current Housing: I Have Housing Concerned About Future Housing: No Difficulty Paying Gas/Electric Bills: No Difficulty Paying for Meds: No Currently Unemployed: No Education: Don't Know Difficulty w/ Childcare or Family Care: No Additional living arrangements comments: Lives with daughter and son-in-law. Spiritual care concerns: No Meds Home Medications and Allergies Home Medications Medication Instructions Recorded Confirmed Type aspirin 325 mg tablet 325 mg PO DAILY 09/21/22 08/31/23 History cetirizine 10 mg capsule (Zyrtec) 10 mg PO DAILY PRN Allergy Symptoms 09/21/22 08/31/23 History ferrous sulfate 325 mg (65 mg 325 mg PO DAILY 09/21/22 08/31/23 History iron) tablet levothyroxine 25 mcg tablet See Rx Instructions .Route .COMPLEX 09/21/22 08/31/23 History metoprolol tartrate 25 mg tablet 12.5 mg PO DAILY 09/21/22 08/31/23 History midodrine 2.5 mg tablet 2.5 mg PO DAILY 09/21/22 08/31/23 History umeclidinium 62.5 mcg-vilanterol 1 inh inhalation DAILY 09/21/22 08/31/23 History 25 mcg/actuation powdr for inhalatio
[2023-08-31] MEDS: LACTATED RINGERS 1,000 ML 125 ML IV CONT (15:48)
--- NOTE | 2023-08-31 16:33 | ADMGEN ---
This patient, Venessa Pierce, was admitted to [address] [place] [address] Room [facility] at 1633. Patient/family oriented to hospital policies and general routines including ID bracelet, bed and alarms, visiting hours, pain management, procedures, bathroom and other care routines, personal items, smoking policy, room service/diet, and visiting hours. Information on how to activate the Rapid Response Team has been discussed. Patient/Family are encouraged to report perceived risks to care and to ask questions if they do not understand what they are told or what they should do.
[2023-08-31 16:45] LABS: Reflex Lactic Acid Yes or No Add Lactic
[2023-08-31 18:04] LABS: Lactic Acid 1.9 mmol/L (0.7-2.0)
[2023-09-01 05:45] LABS: Hematocrit 35.8 % (37.0-47.0); Hemoglobin 11.6 g/dL (12.0-15.0); Mean Corpuscular HGB Conc 32.4 g/dl (32-36); Mean Corpuscular Hemoglobin 32.9 pg (26-34); Mean Corpuscular Volume 101.4 fl (80-100); Mean Platelet Volume 10.3 fl (7.4-10.4); Platelet Count Result 218 k/mm3 (150-375); Red Blood Count 3.53 M/mm3 (4.2-5.4); Red Cell Distribution Width 12.7 % (11.5-14.5); White Blood Count 21.6 K/mm3 (4.5-10.0)
[2023-09-01 05:49] LABS: Anion Gap 6 mmol/L (4-12); Blood Urea Nitrogen 17 mg/dL (7-17); Calcium 8.6 mg/dL (8.4-10.2); Carbon Dioxide 24 mmol/L (22-30); Chloride 111 mmol/L (98-107); Estimated CRCL calculation 48 ml/min; Estimated Glomerular Filt Rate > 60; Glucose 108 mg/dL (65-110); Magnesium 1.8 mg/dL (1.6-2.3); Potassium 3.3 mmol/L (3.4-5.0); Sodium 141 mmol/L (137-145)
[2023-09-01 06:00] VITALS: BP 112/52; PULSE 92; RESP 16; TEMP 36.1; O2SAT 96
[2023-09-01 06:28] LABS: Thyroid Stimulating Hormone Reflex 0.622 uIU/mL (0.465-4.68)
[2023-09-01] MEDS: UMECLIDINIUM/VILANTEROL 62.5-25 MCG ELLIPTA 1 PUFF INHALATION (08:07)
[2023-09-01 08:09] VITALS: PULSE 92; RESP 20; O2SAT 96
[2023-09-01] MEDS: LACTATED RINGERS 1,000 ML 75 ML IV CONT (09:29)
[2023-09-01 09:33] VITALS: PULSE 76
[2023-09-01] MEDS: METOPROLOL TARTRATE 12.5 MG TABLET PO (09:33)
[2023-09-01] MEDS: MIDODRINE HCL 2.5 MG TABLET PO (09:34)
[2023-09-01] MEDS: ASPIRIN 325 MG TABLET PO (09:34)
[2023-09-01 10:25] VITALS: BMI 17.7
[2023-09-01] MEDS: AZITHROMYCIN 500 MG/NS 250 ML 500 MG/250 ML BAG 250 MG IVPB (10:50)
--- NOTE | 2023-09-01 11:41 | PCSTNOTE ---
Please refer to the Bedside Swallow Evaluation in the EMR. Please note, silent aspiration cannot be ruled out at bedside.
[2023-09-01] MEDS: VITAMIN B COMPLEX CAPSULE 1 CAP PO (12:17)
[2023-09-01] MEDS: FERROUS SULFATE 325 MG TABLET DR PO (12:17)
[2023-09-01] MEDS: OPTI-GEN TAB 1 TABLET PO ×2 (12:17→18:00)
--- NOTE | 2023-09-01 13:00 | PM.IMPN ---
Progress Note: A&P Assessment and Plan (1) Sepsis: Code(s): A41.9 - Sepsis, unspecified organism Status: Acute Assessment and Plan: She met sepsis criteria on arrival with leukocytosis, altered mental status, and lactic acidosis in the setting of acute on chronic pneumonia. Lactic acid level normalized with IV fluid boluses. Continue IV fluids at 75 cc/hour Patient started on Rocephin and azithromycin on 08/31/2023. Continue home inhalers. Mucinex p.r.n. (2) Pneumonia: Code(s): J18.9 - Pneumonia, unspecified organism Status: Acute Assessment and Plan: CT chest abdomen pelvis showing chronic pneumonia with acute worsening in the right upper lobe and superior segment right lower lobe. Blood and sputum cultures have ordered. Continue azithromycin and ceftriaxone, started on 08/31/2023. Attempt sputum for culture. Check Legionella and pneumococcal antigens as well as mycoplasma IgM. Patient passed her swallow study. (3) Chronic obstructive pulmonary disease: Code(s): J44.9 - Chronic obstructive pulmonary disease, unspecified Status: Acute Assessment and Plan: Records requested from her olive knocker for review regarding chronic pneumonia. Continue home inhaler (4) Hypothyroidism: Qualifiers: Hypothyroidism type: acquired Qualified Code(s): E03.9 - Hypothyroidism, unspecified Code(s): E03.9 - Hypothyroidism, unspecified Status: Acute Assessment and Plan: Continue home medication Subjective Date/time seen: 09/01/23 13:00 Interval history: patient is oriented to place and person but otherwise confused. She is rambling quite a bit. I did not notice her coughing in excess nor which she lethargic. She was hard to redirect and had difficulty following directions. Exam Narrative: GENERAL: Comfortable, no acute distress HENMT: moist mucous membranes EYES: EOM intact b/l NECK: no lymphadenopathy RESPIRATORY: Distant breath sounds, no increased respiratory effort CARDIO: Regular rate and rhythm GI: soft, nontender, bowel sounds present SKIN/EXTREMITIES: no rashes, no edema, no redness or tenderness NEURO: PROM intact, answers questions appropriately, A&O x4 Objective Data Vital Signs Vital Signs: Vital Signs - 24 hr 08/31/23 14:57 08/31/23 15:09 08/31/23 14:30 Temperature 98.6 F Pulse Rate 75 Respiratory Rate 18 Blood Pressure 93/70 L Pulse Oximetry 100 96 100 Oxygen Delivery Room Air 08/31/23 14:50 08/31/23 14:56 08/31/23 15:00 Temperature Pulse Rate Respiratory Rate 19 Blood Pressure 93/70 L 98/54 L Pulse Oximetry 98 99 98 Oxygen Delivery 08/31/23 15:01 08/31/23 15:15 08/31/23 16:00 Temperature 98.0 F Pulse Rate 74 76 Respiratory Rate 19 23 H 16 Blood Pressure 98/70 L Pulse Oximetry 98 99 98 Oxygen Delivery 08/31/23 17:00 08/31/23 20:00 08/31/23 22:37 Temperature 98.1 F 98.4 F Pulse Rate 93 96 Respiratory Rate 16 16 Blood Pressure 104/57 L 122/46 L Pulse Oximetry 98 97 Oxygen Delivery Room Air 09/01/23 06:00 09/01/23 08:09 09/01/23 09:33 Temperature 97.0 F L Pulse Rate 92 92 76 Respiratory Rate 16 20 Blood Pressure 112/52 L Pulse Oximetry 96 96 Oxygen Delivery Room Air 08/31/23 17:11 Temperature 98.1 F Pulse Rate 93 Respiratory Rate Blood Pressure 104/57 L Pulse Oximetry Oxygen Delivery Intake/Output Intake/Output: Intake & Output 08/29/23 08/30/23 08/31/23 09/01/23 23:59 23:59 23:59 23:59 Intake Total 3300 420 Output Total 801 Balance 3300 -381 Meds/Results Medications: Active Medications Generic Name Dose Route Start Last Admin Trade Name Freq PRN Reason Stop Dose Admin Acetaminophen 500 mg 08/31/23 21:31 Acetaminophen 500 Mg Tablet PO Q6H PRN Pain, Mild 1-3 or fever Albuterol/Ipratropium 3 ml 08/31/23 21:33 Ipratropium
[2023-09-01 14:00] VITALS: BP 113/51; PULSE 72; RESP 16; TEMP 37; O2SAT 100
[2023-09-01 22:00] VITALS: BP 116/51; PULSE 109; RESP 16; TEMP 36.6; O2SAT 95
[2023-09-01 22:06] VITALS: O2SAT 95
[2023-09-02 06:00] VITALS: BP 138/65; PULSE 95; RESP 20; TEMP 36.6; O2SAT 99
[2023-09-02 06:01] LABS: Hematocrit 34.8 % (37.0-47.0); Hemoglobin 10.9 g/dL (12.0-15.0); Mean Corpuscular HGB Conc 31.3 g/dl (32-36); Mean Corpuscular Hemoglobin 32.2 pg (26-34); Mean Platelet Volume 10.7 fl (7.4-10.4); Platelet Count Result 223 k/mm3 (150-375); Red Blood Count 3.38 M/mm3 (4.2-5.4); Red Cell Distribution Width 12.6 % (11.5-14.5); White Blood Count 13.1 K/mm3 (4.5-10.0)
[2023-09-02 06:09] LABS: Anion Gap 6 mmol/L (4-12); Blood Urea Nitrogen 13 mg/dL (7-17); Calcium 8.6 mg/dL (8.4-10.2); Carbon Dioxide 24 mmol/L (22-30); Chloride 111 mmol/L (98-107); Estimated CRCL calculation 69 ml/min; Estimated Glomerular Filt Rate > 60; Glucose 92 mg/dL (65-110); Potassium 3.5 mmol/L (3.4-5.0); Sodium 141 mmol/L (137-145)
[2023-09-02 09:17] VITALS: PULSE 84
[2023-09-02] MEDS: METOPROLOL TARTRATE 12.5 MG TABLET PO (09:17)
[2023-09-02] MEDS: ASPIRIN 325 MG TABLET PO (09:17)
[2023-09-02] MEDS: MIDODRINE HCL 2.5 MG TABLET PO (09:17)
[2023-09-02] MEDS: UMECLIDINIUM/VILANTEROL 62.5-25 MCG ELLIPTA 1 PUFF INHALATION (10:06)
[2023-09-02 10:08] VITALS: O2SAT 98
[2023-09-02] MEDS: FERROUS SULFATE 325 MG TABLET DR PO (12:39)
[2023-09-02] MEDS: VITAMIN B COMPLEX CAPSULE 1 CAP PO (12:39)
[2023-09-02] MEDS: AZITHROMYCIN 250 MG TABLET 500 MG PO (12:39)
[2023-09-02] MEDS: OPTI-GEN TAB 1 TABLET PO ×2 (12:39→17:48)
[2023-09-02] MEDS: AMOXICILLIN/CLAVULANATE K 875-125 MG TAB 1 TABLET PO ×2 (12:39→21:34)
[2023-09-02 14:00] VITALS: BP 141/76; PULSE 76; RESP 16; TEMP 36.9; O2SAT 92
--- NOTE | 2023-09-02 15:38 | PM.IMPN ---
Progress Note: A&P Assessment and Plan (1) Sepsis: Code(s): A41.9 - Sepsis, unspecified organism Status: Acute Assessment and Plan: She met sepsis criteria on arrival with leukocytosis, altered mental status, and lactic acidosis in the setting of acute on chronic pneumonia. Lactic acid level normalized with IV fluid boluses. IV fluids discontinued. Patient started on Rocephin and azithromycin on 08/31/2023. Transitioned To Augmentin and azithromycin on 09/02/2023. Continue home inhalers. Mucinex p.r.n. WBC count slowly improving. (2) Pneumonia: Code(s): J18.9 - Pneumonia, unspecified organism Status: Acute Assessment and Plan: CT chest abdomen pelvis showing chronic pneumonia with acute worsening in the right upper lobe and superior segment right lower lobe. Blood and sputum cultures have ordered. Continue azithromycin and ceftriaxone, started on 08/31/2023. 09/02/2023 transition to orals. Sputum culture unable to be obtained. Legionella and pneumococcal antigens pending. Patient passed her swallow study. (3) Chronic obstructive pulmonary disease: Code(s): J44.9 - Chronic obstructive pulmonary disease, unspecified Status: Acute Assessment and Plan: Records requested from her radial router operator for review regarding chronic pneumonia. Continue home inhaler (4) Hypothyroidism: Qualifiers: Hypothyroidism type: acquired Qualified Code(s): E03.9 - Hypothyroidism, unspecified Code(s): E03.9 - Hypothyroidism, unspecified Status: Acute Assessment and Plan: Continue home medication Subjective Date/time seen: 09/02/23 15:38 Interval history: Patient transition to oral antibiotics due to noncompliance with IV medications. Patient kept pulling out her lines that she would be transitioned to orals. Her white blood cell count is still elevated would like he patient will more day prior to discharge. Plan to discharge tomorrow if she continues to improved. She denies any pain. Patient seems back to herself. She is alert oriented times 1-2 Exam Narrative: GENERAL: Comfortable, no acute distress, thin HENMT: moist mucous membranes EYES: EOM intact b/l NECK: no lymphadenopathy RESPIRATORY: Distant breath sounds, no increased respiratory effort CARDIO: Regular rate and rhythm GI: soft, nontender, bowel sounds present SKIN/EXTREMITIES: no rashes, no edema, no redness or tenderness NEURO: PROM intact, A&O x2 Objective Data Vital Signs Vital Signs: Vital Signs - 24 hr 09/01/23 20:00 09/01/23 22:00 09/01/23 22:06 Temperature 97.8 F Pulse Rate 109 H Respiratory Rate 16 Blood Pressure 116/51 L Pulse Oximetry 95 95 Oxygen Delivery Room Air Room Air 09/02/23 06:00 09/02/23 09:17 09/02/23 10:08 Temperature 97.9 F Pulse Rate 95 84 Respiratory Rate 20 Blood Pressure 138/65 Pulse Oximetry 99 98 Oxygen Delivery Room Air 09/02/23 08:00 09/02/23 10:53 Temperature Pulse Rate Respiratory Rate Blood Pressure Pulse Oximetry Oxygen Delivery Room Air Room Air Intake/Output Intake/Output: Intake & Output 08/30/23 08/31/23 09/01/23 09/02/23 23:59 23:59 23:59 23:59 Intake Total 3300 1117.5 320 Output Total 1001 400 Balance 3300 116.5 -80 Meds/Results Medications: Active Medications Generic Name Dose Route Start Last Admin Trade Name Freq PRN Reason Stop Dose Admin Acetaminophen 500 mg 08/31/23 21:31 Acetaminophen 500 Mg Tablet PO Q6H PRN Pain, Mild 1-3 or fever Albuterol/Ipratropium 3 ml 08/31/23 21:33 Ipratropium 0.5 Mg/Albuterol Sulfate 2.5 Mg Ampul.Neb 3 Ml INHALATION Q6HRT PRN Shortness Of Breath Or Wheezing Amoxicillin/Clavulanate Potassium 1 tablet 09/02/23 12:00 09/02/23 12:39 Amoxicillin/Clavulanate K 875-125 Mg Tab PO 09/04/23 21:01 1 tablet Q12HR DELILAH Administration Asp
--- NOTE | 2023-09-02 17:00 | PC.NURSE ---
Nurse went into patients room for afternoon medication pass. Pt showed a tooth that came out. Call made to pt POA to inform of tooth. Message left.
[2023-09-02 21:29] VITALS: BP 129/75; PULSE 74; RESP 20; TEMP 37.1; O2SAT 97
[2023-09-03 05:16] LABS: Hematocrit 34.2 % (37.0-47.0); Hemoglobin 10.9 g/dL (12.0-15.0); Mean Corpuscular HGB Conc 31.9 g/dl (32-36); Mean Corpuscular Hemoglobin 32.2 pg (26-34); Mean Corpuscular Volume 101.2 fl (80-100); Mean Platelet Volume 10.5 fl (7.4-10.4); Platelet Count Result 214 k/mm3 (150-375); Red Blood Count 3.38 M/mm3 (4.2-5.4); Red Cell Distribution Width 12.4 % (11.5-14.5); White Blood Count 8.5 K/mm3 (4.5-10.0)
[2023-09-03 05:25] LABS: Anion Gap 3 mmol/L (4-12); Blood Urea Nitrogen 11 mg/dL (7-17); Calcium 8.6 mg/dL (8.4-10.2); Carbon Dioxide 28 mmol/L (22-30); Chloride 109 mmol/L (98-107); Estimated CRCL calculation 80 ml/min; Estimated Glomerular Filt Rate > 60; Glucose 93 mg/dL (65-110); Potassium 3.5 mmol/L (3.4-5.0); Sodium 140 mmol/L (137-145)
[2023-09-03 06:00] VITALS: BP 129/75; PULSE 88; RESP 20; TEMP 36.8; O2SAT 97
[2023-09-03] MEDS: LEVOTHYROXINE SODIUM 12.5 MCG TABLET PO (06:30)
[2023-09-03] MEDS: LEVOTHYROXINE SODIUM 25 MCG TABLET PO (06:30)
[2023-09-03] MEDS: UMECLIDINIUM/VILANTEROL 62.5-25 MCG ELLIPTA 1 PUFF INHALATION (07:24)
[2023-09-03] MEDS: ASPIRIN 325 MG TABLET PO (09:06)
[2023-09-03] MEDS: AMOXICILLIN/CLAVULANATE K 875-125 MG TAB 1 TABLET PO (09:06)
[2023-09-03] MEDS: AZITHROMYCIN 250 MG TABLET 500 MG PO (09:06)
[2023-09-03 09:07] VITALS: PULSE 78
[2023-09-03] MEDS: METOPROLOL TARTRATE 12.5 MG TABLET PO (09:07)
[2023-09-03] MEDS: MIDODRINE HCL 2.5 MG TABLET PO (09:08)
[2023-09-03] MEDS: VITAMIN B COMPLEX CAPSULE 1 CAP PO (12:36)
[2023-09-03] MEDS: OPTI-GEN TAB 1 TABLET PO (12:36)
[2023-09-03] MEDS: FERROUS SULFATE 325 MG TABLET DR PO (12:36)
[2023-09-03 14:00] VITALS: BP 128/72; PULSE 85; RESP 19; TEMP 36.7; O2SAT 98
--- NOTE | 2023-09-03 14:51 | PM.DS ---
DS: Admitting Diagnosis Discharge Date 09/03/23 Admitting Diagnosis altered mental status DS: Summary Hospital Course Hospital Course: This is an 83-year-old female with history of dementia, left unilateral kidney, chronic kidney disease, hypertension, hypothyroidism, chronic obstructive pulmonary disease, and osteoporosis who presented to the emergency department for evaluation of altered mental status on 08/31/2023. family had noticed that patient was a bit more lethargic from her baseline. Patient is typically alert oriented x1-2 at baseline.he has had decreased urine output, increasing weakness, and dyspnea with exertion. In the ED she was afebrile on arrival with a blood pressure of 91/52. SpO2 is in the mid 90s since arrival. Labs were significant for a WBC count of 32.8, hemoglobin 13.0, MCV 101.8, platelet 290, lactic acid 4.0, BUN 20, creatinine 0.90. Urinalysis was unremarkable. She tested negative for influenza, RSV, and COVID. CT of the chest, abdomen, and pelvis showed chronic pneumonia with acute worsening in the right upper lobe and superior segment right lower lobe. She was started on azithromycin ceftriaxone. Patient did not tolerate her IV very well and kept taking it out a couple different times. She was able to be transitioned to p.o. Augmentin and azithromycin. Her white blood cell count was able to come down with antibiotic treatment. She was much more alert and awake And her orientation remained at baseline. labs and vital signs are stable she is medically clear for discharge at this time. Time Spent with Patient Time attestation: Total time spent providing and/or coordinating discharge services: Exam Narrative: GENERAL: Comfortable, no acute distress, thin HENMT: moist mucous membranes EYES: EOM intact b/l NECK: no lymphadenopathy RESPIRATORY: Distant breath sounds, no increased respiratory effort CARDIO: Regular rate and rhythm GI: soft, nontender, bowel sounds present SKIN/EXTREMITIES: no rashes, no edema, no redness or tenderness NEURO: PROM intact, A&O x2 DS: Data Data Completed and Pending Labs on day of discharge: Labs from last 24 hours 09/03/23 05:04 WBC 8.5 RBC 3.38 L Hgb 10.9 L Hct 34.2 L MCV 101.2 H MCH 32.2 MCHC 31.9 L RDW 12.4 Plt Count 214 MPV 10.5 H Sodium 140 Potassium 3.5 Chloride 109 H Carbon Dioxide 28 Anion Gap 3 L BUN 11 Creatinine 0.50 L Estim Creat Clear Calc 80 Estimated GFR > 60 Glucose 93 Calcium 8.6 Preliminary micro results at discharge 08/31/23 13:40 Blood Culture - Preliminary Blood 08/31/23 13:40 Blood Culture - Preliminary Blood Discharge Plan Discharge Discharging Clinician: Shoshana Stuart Patient Disposition: Home, Self-Care Activity: no preference Diet: heart healthy Discharge Instructions: Augmentin twice a day through 09/04/23. Next dose tonight. Azithromycin daily through 09/04/23 . Next dose tomorrow morning Discharge disposition: Take medications as prescribed Monitor blood pressures Avoid social areas, you wear a mask when in social settings Encouraged to continue with yearly vaccinations Return to the emergency department if he developed sudden shortness of breath, chest pain, nausea, vomiting, upset stomach or intractable diarrhea Return to the emergency department if you develop fever greater than 100.4 Follow-up with the primary care physician within 1-2 weeks Thank you for [facility] for your healthcare needs Patient Instructions: Antibiotic Form Stand Alone Forms: General Discharge Information Follow-up/Referrals: Jazz,DO Andra [Primary Care Provider] - Discharge Medications: New azithromycin [Zithromax] 250 mg Tablet 500 mg PO DAILY Qty: 1 0RF amoxicillin-pot clavulanate 875-125 mg tablet 1 tablet PO Q12H Qty: 3 0RF Continued levothyroxine 25 mcg Tablet See Rx Instructions .ROUTE .COMPLEX Rx Instructions
[2023-09-16 18:24] LABS: Mycoplasma IgM Antibody Titer 83 U/mL
== END 2023-09-03 16:34 | disposition home or self-care (01) | DRG 871 ==
LOC: ANHED 15:12 → ANH3MED 15:57
PROVIDERS: Emergency Medicine; Internal Medicine Critical Care Medicine; Physician Assistant; Admitting Provider General Practice; Emergency Provider Emergency Medicine; PCP Family Medicine; Visit Provider General Practice
DX: A41.9 Sepsis, unspecified organism (principal); J18.9 Pneumonia, unspecified organism; J44.0 Chronic obstructive pulmonary disease with (acute) lower respiratory infection; E03.9 Hypothyroidism, unspecified; E78.5 Hyperlipidemia, unspecified; F03.90 Unspecified dementia, unspecified severity, without behavioral disturbance, psychotic disturbance, mood disturbance, and anxiety; I12.9 Hypertensive chronic kidney disease with stage 1 through stage 4 chronic kidney disease, or unspecified chronic kidney disease; I34.1 Nonrheumatic mitral (valve) prolapse; M81.0 Age-related osteoporosis without current pathological fracture; N18.9 Chronic kidney disease, unspecified; Z85.528 Personal history of other malignant neoplasm of kidney; Z91.148 Patient's other noncompliance with medication regimen for other reason; Z85.3 Personal history of malignant neoplasm of breast; Z90.49 Acquired absence of other specified parts of digestive tract; Z90.5 Acquired absence of kidney; Z87.891 Personal history of nicotine dependence; Z79.82 Long term (current) use of aspirin; Z20.822 Contact with and (suspected) exposure to COVID-19; Z66 Do not resuscitate
CPT/HCPCS: 36415; 71250; 74176; 80048; 80053; 81003; 83605; 83735; 84443; 85025; 85027; 85610; 85730; 86738; 87040; 87637; 92610; 93005; 94640; 96365; 97161; 99285; A9270; J0456; J0696; J7030; J7120

== ENCOUNTER 2024-02-22 10:07 | Inpatient (IN) | payer MEDICARE, SELFPAY ==
--- NOTE | ~2024-02-22 | CT_ITS ---
EXAMINATION: CT abdomen pelvis wo con DATE: 02/22/2024 13:00 INDICATION: Hematuria. TECHNIQUE: Computed tomography (CT) of the abdomen and pelvis was performed without intravenous contr ast. Automated exposure control and iterative reconstruction technique were employed. The dose-length product was 422.28 mGy-cm. COMPARISON: CT abdomen and pelvis 08/31/2023 FINDINGS: The visualized portions of the lung bases demonstrate bronchiectasis and scattered centrilo bular nodules and tree-in-bud opacities and small airspace opacities. No pleural effusion. The heart size is normal. There is a trace pericardial effusion. The liver and spleen are normal. There are wyatt nges of cholecystectomy. The pancreas and adrenal glands are normal. There are changes of right nephr ectomy. There are cysts in left kidney measuring up to 1.6 cm. There are approximately 4 stones in le ft kidney measuring up to 7 mm. There is diverticulosis of the colon without evidence of diverticulit is. There are no dilated loops of bowel. The appendix is normal. There are no pathologically enlarged lymph nodes. There is physiologic fluid in the pelvis. There is severe lumbar spondylosis. There are few scattered benign bone islands. IMPRESSION: 1. Nonobstructing left kidney stones. 2. 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 Reviewed, dictated and finalized at location A. LER MAKER MACHINE
--- NOTE | ~2024-02-22 | CT_ITS ---
CT brain wo con Ordering provider: Amor Alvarado MD History: 83 years Female with . Head injury . Comparison: None. Technique: CT of the head without contrast. Radiation reduction technique utilized. The dose-length product was 605.33 mGy-cm. FINDINGS: BRAIN PARENCHYMA AND CSF SPACES: Mild leukoaraiosis and diffuse cortical atrophy. Mild atheromatous d isease. Old lacunar infarct in the left basal ganglia. . No midline shift, mass effect or hemorrhage. The brain Parenchyma and CSF spaces are otherwise normal. VISUALIZED PARANASAL SINUSES: Well aerated. MASTOIDS: Well aerated. BONES: The bones appear intact. SOFT TISSUES: Visualized nasopharynx is normal. Superficial soft tissues are normal. IMPRESSION: No acute intracranial findings. Reviewed, dictated and finalized at location A. STANT DIRECTOR OF ADMISSIONS
--- NOTE | ~2024-02-22 | XR_ITS ---
XR chest 2V Ordering provider: Theresa Bustamante PA-C History: 83 years Female with . weakness/CONFUSION . Comparison: None. FINDINGS: MEDIASTINUM: The cardiac silhouette is not enlarged. LUNGS: No effusions or pneumothorax. Minimal infiltrate in the right costophrenic angle area. Emphysematous changes of the lungs. OTHER: No free air under the diaphragm. IMPRESSION: Possible infiltrate in the right costophrenic angle suggestive of early pneumonia. Follow-up advised. Reviewed, dictated and finalized at location A. T LIME DRAWER IMPRESSION: Possible infiltrate in the right costophrenic angle suggestive of early pneumon ia. Follow-up advised.
[2024-02-22 10:10] VITALS: BP 112/79; PULSE 75; RESP 15; TEMP 36.4; O2SAT 98
--- NOTE | 2024-02-22 10:34 | ECG_ITS ---
Test Date: 2024-02-22 11:12:23 Measurements Intervals [place] Rate: 67 P: 64 WI: 146 QRS: 52 QRSD: 78 T: 6 QT: 407 QTc: 431 Interpretive Statements SINUS RHYTHM CONSIDER ANTERIOR INFARCT, AGE INDETERMINATE BASELINE ARTIFACT- I, II, III, AVR, AVL, AVF, V3-V6 ABNORMAL ECG No previous ECG available for comparison Electronically Signed On 02-22-2024 12:06:48 RECREATION ESTABLISHMENT MANAGER by Lars Tolbert D.O.
[2024-02-22 11:00] VITALS: BP 148/76; PULSE 82; RESP 22; O2SAT 95
[2024-02-22 11:15] LABS: Basophils Absolute Auto 0.1 K/mm3 (0.0-0.1); Basophils Percent Auto 0.8 % (0.2-1.2); Eosinophils Absolute Auto 0.2 K/mm3 (0-0.3); Eosinophils Percent Auto 2.3 % (0-4.4); Immature Granulocyte Absolute 0.02 K/mm3 (0.00-0.031); Immature Granulocyte Percent A 0.3 % (0-0.5); Lymphocytes Absolute Auto 1.33 K/mm3 (0.9-3.2); Lymphocytes Percent Auto 18.8 % (18.3-44.2); Mean Corpuscular HGB Conc 30.8 g/dl (32-36); Mean Corpuscular Hemoglobin 31.5 pg (26-34); Mean Corpuscular Volume 102.4 fl (80-100); Mean Platelet Volume 10.7 fl (7.4-10.4); Monocytes Absolute Auto 0.8 K/mm3 (0.1-0.6); Monocytes Percent Auto 11.9 % (2.6-8.5); Neutrophils Absolute Auto 4.7 K/mm3 (1.3-6.7); Neutrophils Percent Auto 65.9 % (45.5-73.1); Platelet Count Result 273 k/mm3 (150-375); Red Blood Count 3.81 M/mm3 (4.2-5.4); Red Cell Distribution Width 13.4 % (11.5-14.5); White Blood Count 7.1 K/mm3 (4.5-10.0)
--- NOTE | 2024-02-22 11:16 | ED_ITS ---
HPI - General Adult General Chief complaint: Altered Mental Status Stated complaint: dizzy multiple falls Time Seen by Provider: 02/22/24 10:41 History of Present Illness HPI narrative: 83-year-old female presenting to the emergency department for evaluation for altered mental status which is thought to be secondary to a current urinary tract infection. Patient was started on antibiotics for urinary tract infection a few days ago. Patient does live with her daughter and son along, son-in-law is present in the emergency department. He states that the patient has been having increased confusion over last few days and patient was very restless last night. They did talk to the patient's primary care physician and the primary care physician was concerned that perhaps the UTI is not being adequately treated so they recommended that she be evaluated in the emergency department. Patient did have a fall last night where she became entrapped under a very light dresser. They were unsure if the patient had hit her head. Patient had no loss of consciousness. Family is the primary caregiver for the patient and they do feel they are getting close to the point where they are not able to care for her at home. Related Data Home Medications Medication Instructions Recorded Confirmed aspirin 325 mg tablet 325 mg PO HS 09/21/22 02/22/24 cetirizine 10 mg capsule (Zyrtec) 10 mg PO DAILY PRN Allergy Symptoms 09/21/22 02/22/24 ferrous sulfate 325 mg (65 mg 325 mg PO QMWF 09/21/22 02/22/24 iron) tablet levothyroxine 25 mcg tablet See Rx Instructions .Route .COMPLEX 09/21/22 02/22/24 metoprolol tartrate 25 mg tablet 12.5 mg PO HS 09/21/22 02/22/24 midodrine 2.5 mg tablet 2.5 mg PO DAILY 09/21/22 02/22/24 umeclidinium 62.5 mcg-vilanterol 1 inh inhalation DAILY 09/21/22 02/22/24 25 mcg/actuation powdr for inhalation (Anoro Ellipta) vitamin B complex (B 1 tablet PO DAILY 09/21/22 02/22/24 Complex-Vitamin B12 tablet) acetaminophen 500 mg tablet 500 mg PO Q6H PRN Pain, Mild 08/31/23 02/22/24 (Acetaminophen Extra Strength) melatonin 5 mg tablet 2.5 mg PO HS 08/31/23 02/22/24 Allergies Allergy/AdvReac Type Severity Reaction Status Date / Time cat dander Allergy Mild Sneezing Verified 12/09/22 12:12 lactose AdvReac Gastrointestinal Verified 09/02/23 11:20 Upset Review of Systems 2 Review of Systems: All systems reviewed & are unremarkable except as noted in HPI and below [facility], LAT[facility] Past Medical History Medical History (Updated 02/22/24 @ 17:58 by Yessy Barry, BENCH HAND) Anemia Breast cancer, left breast Chronic kidney disease Chronic obstructive pulmonary disease Chronic pneumonia Dementia Hyperlipidemia Hypertension Hypothyroidism Irritable bowel disease Mitral valve prolapse Osteoporosis Renal cell carcinoma Surgical History Surgical History (Updated 08/31/23 @ 15:22 by Zahira Julien PA-C) History of cholecystectomy History of nephrectomy Right nephrectomy following trauma. History of partial nephrectomy Left renal cell carcinoma. Family History Family History Mother Dementia Sibling Cancer Other Unknown family medical history Social History Social History (Updated 08/31/23 @ 21:29 by Zahira Julien PA-C) Social History: Surrogate medical decision maker: Nataly Hoffmann, daughter. Code status: Modified code, medications only. Smoking packs per day: 3 Smoking cigarettes per day: 60.0 Years smoked: 12 Smoking pack-years: 36.00 Smoking status: Never smoker Second hand tobacco smoke exposure: No Alcohol intake: never Substance use: never Substance use type: does not use Lack of Transportation: No Lack of Food: Never True Current Housing: I Have Housing Concerned About Future Housing: No Difficulty Paying Gas/Electric Bills: No Difficulty Paying for Meds: No Currently Unemployed: No Education: Don't Know Difficulty w/ Childcare or Family Care: No Additional living arrangements comments: Lives with daughter and son-in-law. Spiritual care concerns: No Exam Narrative: APPEARANCE: Well-appearing but restless HEAD: normocephalic, atraumatic. EYES: PERRLA/EOMI, conjunctivae clear. NOSE: Normal no drainage EARS:TMS clear with good light reflex. THROAT: Pharynx clear, no exudate. NECK: Supple. No adenopathy, no masses. RESPIRATORY: Airway patent, respirations nonlabored. Clear to auscultation bilaterally, no rales, rhonchi, wheezing. CARDIOVASCULAR: Regular rate and rhythm without murmurs rubs or gallops. ABDOMINAL: Soft, nontender, nondistended, normal bowel sounds MUSCULOSKELETAL: Moves all extremities. Strength/ROM intact, No edema, No calf tenderness. NEURO: Alert. C grossly intact SKIN: Warm, dry. Normal Color Course Vital Signs Vital signs: Vital Signs Temperature 97.6 F 02/22/24 10:10 Pulse Rate 75 02/22/24 10:10 Respiratory Rate 15 02/22/24 10:10 Blood Pressure 112/79 02/22/24 10:10 Pulse Oximetry 98 02/22/24 10:10 Oxygen Delivery Room Air 02/22/24 10:10 Temperature 97.6 F 02/22/24 10:10 Pulse Rate 66 02/22/24 14:00 Respiratory Rate 18 02/22/24 14:00 Blood Pressure 146/79 H 02/22/24 14:00 Pulse Oximetry 100 02/22/24 14:00 Oxygen Delivery Room Air 02/22/24 15:10 Medical Decision Making MDM Narrative Medical decision making narrative: 83-year-old female with history of dementia presented emergency department for evaluation for worsening dementia and altered mental status. Family thinks this is most likely secondary to her current urinary tract infection but they still feel they are unable to care for her at home in this current state they are also interested in seeking permanent placement for the patient. Patient is afebrile with no leukocytosis and hemoglobin of 12.0. No acute abnormalities on the patient's CMP UA did have evidence of hematuria but no underlying bacteria. CT abdomen pelvis was ordered to evaluate for ureteral calculi and the only finding was chronic pneumonia. Head CT showed no acute intracranial abnormality. Chest x-ray was concerning for pneumonia but CT showed chronic pneumonia. Patient was not restarted on antibiotics emergency department. Case was discussed with hospitalist patient was accepted for admission for continuing her current antibiotics at but primarily for long-term placement. Differential Diagnosis Differential Diagnosis: Subdural hematoma, subarachnoid hemorrhage, urinary tract infection, COVID, influenza, RSV, kidney stone colitis, diverticulitis, pneumonia Vital Signs Vital Signs: Vital Signs Temperature 97.6 F 02/22/24 10:10 Pulse Rate 75 02/22/24 10:10 Respiratory Rate 15 02/22/24 10:10 Blood Pressure 112/79 02/22/24 10:10 Pulse Oximetry 98 02/22/24 10:10 Oxygen Delivery Room Air 02/22/24 10:10 Temperature 97.6 F 02/22/24 10:10 Pulse Rate 66 02/22/24 14:00 Respiratory Rate 18 02/22/24 14:00 Blood Pressure 146/79 H 02/22/24 14:00 Pulse Oximetry 100 02/22/24 14:00 Oxygen Delivery Room Air 02/22/24 15:10 Lab Data Lab results reviewed: Yes I reviewed the patient's lab results. 02/22/24 11:06 02/22/24 11:06 Labs: Lab Results 02/22/24 02/22/24 Range/Units 11:06 11:37 WBC 7.1 (4.5-10.0) K/mm3 RBC 3.81 L (4.2-5.4) M/mm3 Hgb 12.0 (12.0-15.0) g/dL Hct 39.0 (37.0-47.0) % MCV 102.4 H (80-100) fl MCH 31.5 (26-34) pg MCHC 30.8 L (32-36) g/dl RDW 13.4 (11.5-14.5) % Plt Count 273 (150-375) k/mm3 MPV 10.7 H (7.4-10.4) fl Immature Gran % (Auto) 0.3 (0-0.5) % Neut % (Auto) 65.9 (45.5-73.1) % Lymph % (Auto) 18.8 (18.3-44.2) % [place] % (Auto) 11.9 H (2.6-8.5) % Eos % (Auto) 2.3 (0-4.4) % Baso % (Auto) 0.8 (0.2-1.2) % Lymph # (Auto) 1.33 (0.9-3.2) K/mm3 [place] # (Auto) 0.8 H (0.1-0.6) K/mm3 Eos # (Auto) 0.2 (0-0.3) K/mm3 Baso # (Auto) 0.1 (0.0-0.1) K/mm3 Abs Immat Gran (auto) 0.02 (0.00-0.031) K/mm3 Absolute Neuts (auto) 4.7 (1.3-6.7) K/mm3 Absolute Nucleated RBC 0.000 (0.0-0.012) K/mm3 Nucleated RBC % 0.0 (0.0-0.2) % Sodium 139 (137-145) mmol/L Potassium 3.7 (3.4-5.0) mmol/L Chloride 107 (98-107) mmol/L Carbon Dioxide 24 (22-30) mmol/L Anion Gap 8 (4-12) mmol/L BUN 16 (7-17) mg/dL Creatinine 0.70 (0.7-1.0) mg/dL Estim Creat Clear Calc 45 ml/min Estimated GFR > 60 (59 - ) Glucose 89 (65-110) mg/dL Calcium 9.4 (8.4-10.2) mg/dL Total Bilirubin 0.6 (0.2-1.3) mg/dL AST 25 (14-36) U/L ALT 10 (6-35) U/L Alkaline Phosphatase 79 (38-126) U/L Total Protein 7.0 (6.3-8.2) g/dL Albumin 3.9 (3.5-5.1) g/dL Urine Color Dark yellow (Yellow) Urine Appearance Cloudy H (Clear) Urine pH 6.0 (5.0-9.0) Ur Specific [place] 1.023 (1.001-1.035) Urine Protein 1+ H (Negative) mg/dL Urine Glucose (UA) Negative (Negative) mg/dL Urine Ketones Trace H (Negative) mg/dL Ur Blood (Man) 3+ H (Negative) Urine Nitrate Negative (Negative) Urine Bilirubin Negative (Negative) Urine Urobilinogen 0.2 (<2.0) mg/dL Add Ur Microanalysis Reviewed Leukocyte Esterase Rfl Trace H (Negative) KIT/UL Urine RBC >100 H (0-2) /hpf Urine WBC 0-5 (0-3) /hpf Ur Squamous Epith Cells None seen (Few) /hpf Urine Bacteria None seen /hpf Urine Casts 3-5 Imaging Data Radiologist's impression: Impressions Head CT 02/22/24 11:55 IMPRESSION: No acute intracranial findings. Chest X-Ray 02/22/24 12:15 IMPRESSION: Possible infiltrate in the right costophrenic angle suggestive of early pneumonia. Follow-up advised. Abdomen/Pelvis CT 02/22/24 13:07 IMPRESSION: 1. Nonobstructing left kidney stones. 2. 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 Discharge Plan Discharge Clinical Impression: AMS (altered mental status) Patient Disposition: Still a Patient Condition: Serious
[2024-02-22 11:42] LABS: Alanine Aminotransferase 10 U/L (6-35); Albumin Level 3.9 g/dL (3.5-5.1); Alkaline Phosphatase 79 U/L (38-126); Anion Gap 8 mmol/L (4-12); Aspartate Amino Transferase 25 U/L (14-36); Bilirubin,Total 0.6 mg/dL (0.2-1.3); Blood Urea Nitrogen 16 mg/dL (7-17); Calcium 9.4 mg/dL (8.4-10.2); Carbon Dioxide 24 mmol/L (22-30); Chloride 107 mmol/L (98-107); Estimated CRCL calculation 45 ml/min; Estimated Glomerular Filt Rate > 60; Glucose 89 mg/dL (65-110); Potassium 3.7 mmol/L (3.4-5.0); Sodium 139 mmol/L (137-145)
[2024-02-22 12:00] VITALS: BP 129/80; PULSE 71; RESP 16; O2SAT 100
[2024-02-22 12:39] LABS: Add Urine Microscopic? YES; Appearance Urine Cloudy (Clear); Bacteria Urine None Seen /hpf; Bilirubin Urine Negative (Negative); Blood Urine 3+ (Negative); Color Urine Dark Yellow (Yellow); Glucose Urine UA Negative (Negative); Ketones Urine Trace mg/dL (Negative); Leukocyte Esterase Ur Trace LEU/UL (Negative); Need Manual Microscopic Reviewed; Nitrate Urine Negative (Negative); Protein Urine 1+ mg/dL (Negative); RBC Urine >100 /hpf (0-2); Specific Grav Ur 1.023 (1.001-1.035); Squamous Epithelial Cell Urine None Seen /hpf (Few); Urobilinogen Urine 0.2 mg/dL (<2.0); WBC Urine 0-5 /hpf (0-3)
[2024-02-22 13:00] VITALS: BP 149/71; PULSE 68; RESP 18; O2SAT 100
[2024-02-22 14:00] VITALS: BP 146/79; PULSE 66; RESP 18; O2SAT 100
--- NOTE | 2024-02-22 14:40 | P.HP_ITS ---
H&P: HPI History of Present Illness Date/Time: 02/22/24 14:40 Chief Complaint: Altered mental status and UTI Narrative: 83-year-old female with history of left breast cancer, chronic kidney disease, renal cell carcinoma, COPD, hypertension hypothyroidism presenting to the emergency department for evaluation for altered mental status which is thought to be secondary to a current urinary tract infection. HPI is limited due to patient being extremely agitated A&O times 0. Patient with known UTI on oral antibiotics without improvement. Of Note patient did have a fall last night where she ended up under a dresser, unsure if she hit her head or not CT head shows no acute bleed. EKG shows normal sinus rhythm rate of 67, urine cloudy with trace leukocyte esterase, negative for nitrates, urine RBC over 100. Chest x-ray shows possible infiltrate at the right costophrenic angle suggestion of pneumonia. CT of the abdomen and pelvis showed nonobstructing left kidney stones, there are approximately 4 stones in left kidney measuring up to 7 mm., and chronic pneumonia. Family states that they are no longer able to care for at home and patient will need placement. Called by nursing for patient being aggressive and punching sitter. Review of Systems Review of Systems: ROS unobtainable: Yes unobtainable due to mental status (Combative) PENDING SALE TO [facility] Past Medical History Medical History (Updated 02/22/24 @ 17:58 by Yessy Barry APRN) Anemia Breast cancer, left breast Chronic kidney disease Chronic obstructive pulmonary disease Chronic pneumonia Dementia Hyperlipidemia Hypertension Hypothyroidism Irritable bowel disease Mitral valve prolapse Osteoporosis Renal cell carcinoma Surgical History Surgical History (Updated 08/31/23 @ 15:22 by Zahira Julien PA-C) History of cholecystectomy History of nephrectomy Right nephrectomy following trauma. History of partial nephrectomy Left renal cell carcinoma. Family History Family History Mother Dementia Sibling Cancer Other Unknown family medical history Social History Social History (Updated 08/31/23 @ 21:29 by Zahira Julien PA-C) Social History: Surrogate medical decision maker: Nataly Hoffmann, daughter. Code status: Modified code, medications only. Smoking packs per day: 3 Smoking cigarettes per day: 60.0 Years smoked: 12 Smoking pack-years: 36.00 Smoking status: Never smoker Second hand tobacco smoke exposure: No Alcohol intake: never Substance use: never Substance use type: does not use Lack of Transportation: No Lack of Food: Never True Current Housing: I Have Housing Concerned About Future Housing: No Difficulty Paying Gas/Electric Bills: No Difficulty Paying for Meds: No Currently Unemployed: No Education: Don't Know Difficulty w/ Childcare or Family Care: No Additional living arrangements comments: Lives with daughter and son-in-law. Spiritual care concerns: No Meds Home Medications and Allergies Home Medications Medication Instructions Recorded Confirmed Type aspirin 325 mg tablet 325 mg PO HS 09/21/22 02/22/24 History cetirizine 10 mg capsule (Zyrtec) 10 mg PO DAILY PRN Allergy Symptoms 09/21/22 02/22/24 History ferrous sulfate 325 mg (65 mg 325 mg PO QMWF 09/21/22 02/22/24 History iron) tablet levothyroxine 25 mcg tablet See Rx Instructions .Route .COMPLEX 09/21/22 02/22/24 History metoprolol tartrate 25 mg tablet 12.5 mg PO HS 09/21/22 02/22/24 History midodrine 2.5 mg tablet 2.5 mg PO DAILY 09/21/22 02/22/24 History umeclidinium 62.5 mcg-vilanterol 1 inh inhalation DAILY 09/21/22 02/22/24 History 25 mcg/actuation powdr for inhalation (Anoro Ellipta) vitamin B complex (B 1 tablet PO DAILY 09/21/22 02/22/24 History Complex-Vitamin B12 tablet) acetaminophen 500 mg tablet 500 mg PO Q6H PRN Pain, Mild 08/31/23 02/22/24 History (Acetaminophen Extra Strength) melatonin 5 mg tablet 2.5 mg PO HS 08/31/23 02/22/24 History amoxicillin 875 mg-potassium 1 tablet PO Q12H #3 tabs 09/03/23 02/22/24 Rx clavulanate 125 mg tablet Allergies Allergy/AdvReac Type Severity Reaction Status Date / Time cat dander Allergy Mild Sneezing Verified 12/09/22 12:12 lactose AdvReac Gastrointestinal Verified 09/02/23 11:20 Upset Vital Signs Vital Signs - 24 hr 02/22/24 10:10 02/22/24 11:00 02/22/24 12:00 Temperature 97.6 F Pulse Rate 75 82 71 Respiratory Rate 15 22 H 16 Blood Pressure 112/79 148/76 H 129/80 Pulse Oximetry 98 95 100 Oxygen Delivery Room Air Exam Narrative: General: Mal-nourished. HEENT: normocephalic, atraumatic. Mucous membranes moist. EOMI, PERRLA, bilateral sclera anicteric, no conjunctival injection. Neck supple without JVD, lymphadenopathy, or bruit. Respiratory: clear to ascultation bilaterally. No rales/rhonic/wheezes. Cardiovascular: Regular rate and rhythm, normal S1-S2 upon ascultation. No murmurs, rubs, or clicks. PMI is nondisplaced, capillary refill less than 3 second. Abdomen: Soft, round, no pulsatile masses, nondistended and nontender. No rebound, no guarding. No CVA tenderness, no hepatosplenomegaly. Bowel sounds present to all four quadrants. No high pitch or tinkling sounds, resonant to percussion. Extremities: No cyanosis, clubbing, or edema present. Pulses are palpable 2/2. Active ROM to all four extremities. Neuro: Alert and orientated x 0. PERRLA. Cranial nerves 2-12 intact without focal deficit. Skin: Warm, dry, and intact, without rash, erythema, or lesion. Psych: uncooperative, H&P: Results Labs Labs: Short CBC 02/22/24 Range/Units 11:06 WBC 7.1 (4.5-10.0) K/mm3 Hgb 12.0 (12.0-15.0) g/dL Hct 39.0 (37.0-47.0) % Plt Count 273 (150-375) k/mm3 [facility] 02/22/24 11:06 Sodium 139 Potassium 3.7 Chloride 107 Carbon Dioxide 24 BUN 16 Creatinine 0.70 Glucose 89 Calcium 9.4 Liver Function 02/22/24 Range/Units 11:06 Total Bilirubin 0.6 (0.2-1.3) mg/dL AST 25 (14-36) U/L ALT 10 (6-35) U/L Alkaline Phosphatase 79 (38-126) U/L Albumin 3.9 (3.5-5.1) g/dL Urine 02/22/24 Range/Units 11:37 Urine Color Dark yellow (Yellow) Urine Appearance Cloudy H (Clear) Urine pH 6.0 (5.0-9.0) Ur Specific [place] 1.023 (1.001-1.035) Urine Protein 1+ H (Negative) mg/dL Urine Glucose (UA) Negative (Negative) mg/dL Assessment and Plan Assessment and plan (1) UTI (urinary tract infection): Code(s): N39.0 - Urinary tract infection, site not specified Status: Acute Assessment and Plan: Failed oral antibiotics amoxicillin clavulanate Culture and sensitivity pending IV Rocephin Encourage oral intake (2) Pneumonia: Code(s): J18.9 - Pneumonia, unspecified organism Status: Acute Assessment and Plan: Chronic pneumonia seen on CT 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) Respiratory culture pending No respiratory distress, no need of oxygen, no use of accessory muscles, will wait on cultures (3) Hypothyroidism: Qualifiers: Hypothyroidism type: acquired Qualified Code(s): E03.9 - Hy pothyroidism, unspecified Code(s): E03.9 - Hypothyroidism, unspecified Status: Acute Assessment and Plan: Reorder home Synthroid (4) Dementia: Code(s): F03.90 - Unspecified dementia, unspecified severity, without behavioral disturbance, psychotic disturbance, mood disturbance, and anxiety Status: Acute Assessment and Plan: With behavioral issues Not on home medications Sleep hygiene to prevent hospital-acquired delirium Zyprexa b.i.d. Sitter at bedside Soft restraints (5) Weakness: Code(s): R53.1 - Weakness Status: Acute Assessment and Plan: Likely due to deconditioning and UTI PT and OT evaluation Family states they can no longer care for her at home, she will need placement Quality VTE Prophylaxis VTE prophylaxis: mechanical ordered and pharmacologic ordered Hospitalist [facility] Advance Care Plan I have confirmed that the patient's Advanced Care Plan is present, code status is documented, or surrogate decision maker is listed in patient medical record.: Yes Medication Reconciliation I have utilized all available resources to obtain, update and review the patients current medications (includes all prescriptions, OTC, herbals, cannabis, and nutritional supplements).: Yes
--- NOTE | 2024-02-22 15:10 | ADMGEN ---
This patient, Venessa Pierce, was admitted to Medical Room 255-01. Patient/family oriented to hospital policies and general routines including ID bracelet, bed and alarms, visiting hours, pain management, procedures, bathroom and other care routines, personal items, smoking policy, room service/diet, and visiting hours. Information on how to activate the Rapid Response Team has been discussed. Patient/Family are encouraged to report perceived risks to care and to ask questions if they do not understand what they are told or what they should do.
--- NOTE | 2024-02-22 19:15 | PC.NURSE ---
GREEN END WORKER CALLED TO NURSES STATION ASKING FOR HELP. ENTERED ROOM TO SEE PT ATTEMPTING TO CLIMB OUT OF BED SHE WAS ALSO SWINGING AT THE PRACTICE OFFICE ASSOCIATE. I THEN OBSERVED THE PT PUNCHING THE PRACTICE OFFICE ASSOCIATE. ONCE PT BACK TO BED SHE THEN AGAIN PUNCHED PRACTICE OFFICE ASSOCIATE. PROVIDER NOTIFIED.
[2024-02-22] MEDS: OLANZapine 5 MG, WATER, STERILE FOR INJECTION 2.1 ML IM (19:40)
[2024-02-22 20:00] VITALS: PULSE 66; RESP 18; O2SAT 100
[2024-02-23] VITALS (11 sets, daily range): BP systolic 110–165; BP diastolic 60–78; PULSE 72–110; RESP 16–20; TEMP 36.4–36.7; O2SAT 93–100; BMI 16.2
[2024-02-23] MEDS: OLANZapine 10 MG, WATER, STERILE FOR INJECTION 2.1 ML IM (02:38)
[2024-02-23 05:42] LABS: Basophils Absolute Auto 0.1 K/mm3 (0.0-0.1); Basophils Percent Auto 0.6 % (0.2-1.2); Eosinophils Absolute Auto 0.2 K/mm3 (0-0.3); Eosinophils Percent Auto 1.3 % (0-4.4); Hematocrit 40.4 % (37.0-47.0); Hemoglobin 13.1 g/dL (12.0-15.0); Immature Granulocyte Absolute 0.05 K/mm3 (0.00-0.031); Immature Granulocyte Percent A 0.4 % (0-0.5); Lymphocytes Absolute Auto 1.01 K/mm3 (0.9-3.2); Lymphocytes Percent Auto 8.5 % (18.3-44.2); Mean Corpuscular HGB Conc 32.4 g/dl (32-36); Mean Corpuscular Volume 98.8 fl (80-100); Mean Platelet Volume 10.5 fl (7.4-10.4); Monocytes Absolute Auto 1.1 K/mm3 (0.1-0.6); Neutrophils Absolute Auto 9.6 K/mm3 (1.3-6.7); Neutrophils Percent Auto 80.2 % (45.5-73.1); Platelet Count Result 276 k/mm3 (150-375); Red Blood Count 4.09 M/mm3 (4.2-5.4); Red Cell Distribution Width 13.3 % (11.5-14.5); White Blood Count 11.9 K/mm3 (4.5-10.0)
[2024-02-23 05:50] LABS: Anion Gap 9 mmol/L (4-12); Blood Urea Nitrogen 11 mg/dL (7-17); Calcium 9.5 mg/dL (8.4-10.2); Carbon Dioxide 27 mmol/L (22-30); Chloride 106 mmol/L (98-107); Estimated CRCL calculation 52 ml/min; Estimated Glomerular Filt Rate > 60; Glucose 95 mg/dL (65-110); Potassium 3.7 mmol/L (3.4-5.0); Sodium 142 mmol/L (137-145)
[2024-02-23 08:31] LABS: Magnesium 1.9 mg/dL (1.6-2.3)
[2024-02-23] MEDS: ENOXAPARIN 40 MG/0.4 ML SYRINGE SUB-Q (08:53)
[2024-02-23] MEDS: OLANZapine 5 MG TABLET PO ×2 (10:13→17:25)
[2024-02-23] MEDS: polyethylene glycoL 3350 17 GM POWD.PACK PO (10:13)
[2024-02-23] MEDS: MIDODRINE HCL 2.5 MG TABLET PO (10:13)
--- NOTE | 2024-02-23 11:00 | PCPTNOTE ---
Attempted PT evaluation, pt not able to follow formal commands to safely participate with skilled therapy. Will follow.
--- NOTE | 2024-02-23 11:21 | P.PNIM_ITS ---
Progress Note: A&P Assessment and Plan (1) UTI (urinary tract infection): Code(s): N39.0 - Urinary tract infection, site not specified Status: Acute Assessment and Plan: * Failed oral antibiotics amoxicillin clavulanate * Culture and sensitivity pending * IV Rocephin * Encourage oral intake * NS@ 100 ml/hr. 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 * Oxygen as needed. (3) Hypothyroidism: Qualifiers: Hypothyroidism type: acquired Qualified Code(s): E03.9 - Hypothyroidism, unspecified Code(s): E03.9 - Hypothyroidism, unspecified Status: Acute Assessment and Plan: * Reorder home Synthroid (4) Dementia: Code(s): F03.90 - Unspecified dementia, unspecified severity, without behavioral disturbance, psychotic disturbance, mood disturbance, and anxiety Status: Acute Assessment and Plan: * With behavioral issues * Not on home medications * Sleep hygiene to prevent hospital-acquired delirium * Zyprexa b.i.d. * Sitter at bedside * Soft restraints (5) Weakness: Code(s): R53.1 - Weakness Status: Acute Assessment and Plan: * Likely due to deconditioning and UTI * PT and OT evaluation * Family states they can no longer care for her at home, she will need placement Subjective Date/time seen: 02/23/24 11:21 Interval history: 83-year-old female with history of left breast cancer, chronic kidney disease, renal cell carcinoma, COPD, hypertension hypothyroidism presenting to the emergency department for evaluation for altered mental status which is thought to be secondary to a current urinary tract infection. HPI is limited due to patient being extremely agitated A&O times 0. Patient with known UTI on oral antibiotics without improvement. Patient swings when trial to remove restraints. Patient did not eat breakfast or lunch per nurse. Family states that they are no longer able to care for at home and patient will need placement. Patient with chronic pneumonia. Review of Systems Review of Systems: All systems reviewed & are unremarkable except as noted in HPI and below Exam Const: General: no acute distress Resp: Effort & Inspection: normal respiratory effort Auscultation: clear to auscultation bilaterally Cardio: Rate: regular rate Rhythm: regular rhythm GI: GI Palp: Yes Soft to palpation Auscultation: normal bowel sounds Skin: General skin exam: no rashes or lesions noted Extrem: Other: No cyanosis, clubbing, or edema present. Pulses are palpable 2/2. Active ROM to all four extremities. Psych: Other: uncooperative. Objective Data Vital Signs Vital Signs: Vital Signs - 24 hr 02/22/24 12:00 02/22/24 13:00 02/22/24 14:00 Temperature Pulse Rate 71 68 66 Respiratory Rate 16 18 18 Blood Pressure 129/80 149/71 H 146/79 H Pulse Oximetry 100 100 100 Oxygen Delivery Oxygen Flow Rate 02/22/24 15:10 02/22/24 20:00 02/23/24 04:00 Temperature 97.9 F Pulse Rate 66 99 Respiratory Rate 18 18 Blood Pressure 150/73 H Pulse Oximetry 100 95 Oxygen Delivery Room Air Room Air Oxygen Flow Rate 02/23/24 06:00 02/23/24 07:53 02/23/24 10:15 Temperature 97.7 F 97.8 F Pulse Rate 99 82 82 Respiratory Rate 18 18 18 Blood Pressure 150/73 H 139/71 Pulse Oximetry 95 95 93 Oxygen Delivery Room Air Oxygen Flow Rate 02/23/24 10:56 Temperature Pulse Rate Respiratory Rate Blood Pressure Pulse Oximetry 94 Oxygen Delivery Nasal Cannula Oxygen Flow Rate 2.5 Intake/Output Intake/Output: Intake & Output 02/20/24 02/21/24 02/22/24 02/23/24 23:59 23:59 23:59 23:59 Intake Total 50 0 Output Total 1100 Balance 50 -1100 Meds/Results Medications: Active Medications Generic Name Dose Route Start Last Admin Trade Name Freq PRN Reason Stop Dose Admin Acetaminophen 650 mg 02/22/24 14:49 Acetaminophen 325 Mg Tablet PO Q4H PRN Mild Pain (1-3) or Fever Aspirin 325 mg 02/22/24 21:00 02/22/24 23:33 Aspirin 325 Mg Tablet PO Not Given HS DELILAH Docusate Sodium 100 mg 02/22/24 17:00 02/23/24 10:23 Docusate Sodium 100 Mg Capsule PO Not Given BID DELILAH Enoxaparin Sodium 40 mg 02/23/24 09:00 02/23/24 08:53 Enoxaparin 40 Mg/0.4 Ml Syringe SUB-Q 40 mg DAILY DELILAH Administration Ceftriaxone Sodium 1 gm in 50 mls @ 100 mls/hr 02/22/24 18:00 02/22/24 21:30 Rocephin 1 Gm/Ns 50 Ml IVPB Infused Q24H DELILAH Infusion Melatonin 3 mg 02/22/24 21:00 02/22/24 23:33 Melatonin 3 Mg Tablet PO Not Given HS DELILAH Metoprolol Tartrate 12.5 mg 02/22/24 21:00 02/22/24 23:33 Metoprolol Tartrate 12.5 Mg Tablet PO Not Given HS DELILAH Midodrine 2.5 mg 02/23/24 09:00 02/23/24 10:13 Midodrine Hcl 2.5 Mg Tablet PO 2.5 mg DAILY DELILAH Administration Olanzapine 5 mg 02/23/24 09:00 02/23/24 10:13 Olanzapine 5 Mg Tablet PO 5 mg BID DELILAH Administration Polyethylene Glycol 17 gm 02/23/24 09:00 02/23/24 10:13 Polyethylene Glycol 3350 17 Gm Powd.Pack PO 17 gm QAM DELILAH Administration Umeclidinium/Vilanterol 1 puff 02/23/24 09:00 02/23/24 11:04 Umeclidinium/Vilanterol 62.5-25 Mcg Ellipta INHALATION Not Given DAILY DELILAH Radiology Results: ITS Impressions Head CT 02/22/24 11:55 IMPRESSION: No acute intracranial findings. Chest X-Ray 02/22/24 12:15 IMPRESSION: Possible infiltrate in the right costophrenic angle suggestive of early pneumonia. Follow-up advised. Abdomen/Pelvis CT 02/22/24 13:07 IMPRESSION: 1. Nonobstructing left kidney stones. 2. 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 Labs Labs: Laboratory Results - last 24 hr 02/22/24 02/22/24 02/23/24 11:06 11:37 05:28 WBC 11.9 H RBC 4.09 L Hgb 13.1 Hct 40.4 MCV 98.8 MCH 32.0 MCHC 32.4 RDW 13.3 Plt Count 276 MPV 10.5 H Immature Gran % (Auto) 0.4 Neut % (Auto) 80.2 H Lymph % (Auto) 8.5 L [place] % (Auto) 9.0 H Eos % (Auto) 1.3 Baso % (Auto) 0.6 Lymph # (Auto) 1.01 [place] # (Auto) 1.1 H Eos # (Auto) 0.2 Baso # (Auto) 0.1 Abs Immat Gran (auto) 0.05 H Absolute Neuts (auto) 9.6 H Absolute Nucleated RBC 0.000 Nucleated RBC % 0.0 Sodium 139 142 Potassium 3.7 3.7 Chloride 107 106 Carbon Dioxide 24 27 Anion Gap 8 9 BUN 16 11 D Creatinine 0.70 0.60 L Estim Creat Clear Calc 45 52 Estimated GFR > 60 > 60 Glucose 89 95 Calcium 9.4 9.5 Magnesium 1.9 Total Bilirubin 0.6 AST 25 ALT 10 Alkaline Phosphatase 79 Total Protein 7.0 Albumin 3.9 Urine Color Dark yellow Urine Appearance Cloudy H Urine pH 6.0 Ur Specific [place] 1.023 Urine Protein 1+ H Urine Glucose (UA) Negative Urine Ketones Trace H Ur Blood (Man) 3+ H Urine Nitrate Negative Urine Bilirubin Negative Urine Urobilinogen 0.2 Add Ur Microanalysis Reviewed Leukocyte Esterase Rfl Trace H Urine RBC >100 H Urine WBC 0-5 Ur Squamous Epith Cells None seen Urine Bacteria None seen Urine Casts 3-5 Quality VTE Prophylaxis VTE prophylaxis: pharmacologic ordered
[2024-02-23 11:39] LABS: Influenza A QL RT-PCR Negative (Negative); Influenza B QL RT-PCR Negative (Negative); RSV RNA, RT-PCR Negative (Negative); SARS-CoV-2 RNA PCR Negative (Negative)
[2024-02-23] MEDS: SODIUM CHLORIDE 0.9% IV 1,000 ML 100 ML IV CONT (16:12)
[2024-02-23] MEDS: MELATONIN 3 MG TABLET PO (20:49)
[2024-02-23] MEDS: ASPIRIN 325 MG TABLET PO (20:50)
[2024-02-23] MEDS: ACETAMINOPHEN 325 MG TABLET 650 MG PO (20:50)
[2024-02-23] MEDS: METOPROLOL TARTRATE 12.5 MG TABLET PO (20:50)
[2024-02-24] VITALS (10 sets, daily range): BP systolic 132–186; BP diastolic 58–89; PULSE 71–115; RESP 16–20; TEMP 36.4–37; O2SAT 92–100
[2024-02-24] MEDS: SODIUM CHLORIDE 0.9% IV 1,000 ML 100 ML IV CONT ×2 (03:06→13:22)
[2024-02-24 06:02] LABS: Basophils Percent Auto 0.2 % (0.2-1.2); Eosinophils Percent Auto 0.2 % (0-4.4); Hematocrit 39.8 % (37.0-47.0); Hemoglobin 12.4 g/dL (12.0-15.0); Immature Granulocyte Absolute 0.05 K/mm3 (0.00-0.031); Immature Granulocyte Percent A 0.4 % (0-0.5); Lymphocytes Absolute Auto 0.73 K/mm3 (0.9-3.2); Lymphocytes Percent Auto 5.6 % (18.3-44.2); Mean Corpuscular HGB Conc 31.2 g/dl (32-36); Mean Corpuscular Hemoglobin 32.3 pg (26-34); Mean Corpuscular Volume 103.6 fl (80-100); Mean Platelet Volume 10.7 fl (7.4-10.4); Monocytes Absolute Auto 0.9 K/mm3 (0.1-0.6); Monocytes Percent Auto 6.8 % (2.6-8.5); Neutrophils Absolute Auto 11.3 K/mm3 (1.3-6.7); Neutrophils Percent Auto 86.8 % (45.5-73.1); Platelet Count Result 269 k/mm3 (150-375); Red Blood Count 3.84 M/mm3 (4.2-5.4); Red Cell Distribution Width 13.3 % (11.5-14.5); White Blood Count 13.1 K/mm3 (4.5-10.0)
[2024-02-24 06:25] LABS: Alanine Aminotransferase 13 U/L (6-35); Albumin Level 3.9 g/dL (3.5-5.1); Alkaline Phosphatase 77 U/L (38-126); Anion Gap 10 mmol/L (4-12); Aspartate Amino Transferase 33 U/L (14-36); Bilirubin,Total 0.6 mg/dL (0.2-1.3); Blood Urea Nitrogen 15 mg/dL (7-17); Calcium 9.1 mg/dL (8.4-10.2); Carbon Dioxide 25 mmol/L (22-30); Chloride 110 mmol/L (98-107); Estimated CRCL calculation 52 ml/min; Estimated Glomerular Filt Rate > 60; Glucose 88 mg/dL (65-110); Potassium 4.2 mmol/L (3.4-5.0); Sodium 145 mmol/L (137-145)
[2024-02-24] MEDS: UMECLIDINIUM/VILANTEROL 62.5-25 MCG ELLIPTA 1 PUFF INHALATION (08:03)
[2024-02-24] MEDS: ENOXAPARIN 40 MG/0.4 ML SYRINGE SUB-Q (08:03)
[2024-02-24] MEDS: polyethylene glycoL 3350 17 GM POWD.PACK PO (08:03)
[2024-02-24] MEDS: DOCUSATE SODIUM 100 MG CAPSULE PO (08:04)
[2024-02-24] MEDS: OLANZapine 5 MG TABLET PO ×2 (08:04→16:31)
--- NOTE | 2024-02-24 08:16 | P.PNIM_ITS ---
Progress Note: A&P Assessment and Plan (1) UTI (urinary tract infection): Code(s): N39.0 - Urinary tract infection, site not specified Status: Acute Assessment and Plan: * Failed oral antibiotics amoxicillin clavulanate * Culture and sensitivity pending * IV Rocephin * Encourage oral intake * NS@ 100 ml/hr. 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 * Oxygen as needed. (3) Hypothyroidism: Qualifiers: Hypothyroidism type: acquired Qualified Code(s): E03.9 - Hypothyroidism, unspecified Code(s): E03.9 - Hypothyroidism, unspecified Status: Acute Assessment and Plan: * Reorder home Synthroid (4) Dementia: Code(s): F03.90 - Unspecified dementia, unspecified severity, without behavioral disturbance, psychotic disturbance, mood disturbance, and anxiety Status: Acute Assessment and Plan: * With behavioral issues * Not on home medications * Sleep hygiene to prevent hospital-acquired delirium * Zyprexa b.i.d. (5) Weakness: Code(s): R53.1 - Weakness Status: Acute Assessment and Plan: * Likely due to deconditioning and UTI * PT and OT evaluation , patient not participating in therapy due to altered mental status * Family states they can no longer care for her at home, she will need placement Time Spent With Patient Time with patient: Greater than 35 minutes Subjective Date/time seen: 02/24/24 08:16 Interval history: 83-year-old female with history of left breast cancer, chronic kidney disease, renal cell carcinoma, COPD, hypertension hypothyroidism presenting to the emergency department for evaluation for altered mental status which is thought to be secondary to a current urinary tract infection and Behavioral dementia patient will need placement leukocytosis increasing on a.m. labs family plans to meet with hospice this afternoon. DC mittens and restraints. Review of Systems Review of Systems: 12 systems were reviewed and are negativ e except for as per HPI. All systems reviewed & are unremarkable except as noted in HPI and below ROS unobtainable: Yes unobtainable due to mental status (Combative) Exam Narrative: General: Mal-nourished. HEENT: normocephalic, atraumatic. Mucous membranes moist. EOMI, PERRLA, bilateral sclera anicteric, no conjunctival injection. Neck supple without JVD, lymphadenopathy, or bruit. Respiratory: clear to ascultation bilaterally. No rales/rhonic/wheezes. Cardiovascular: Regular rate and rhythm, normal S1-S2 upon ascultation. No murmurs, rubs, or clicks. PMI is nondisplaced, capillary refill less than 3 second. Abdomen: Soft, round, no pulsatile masses, nondistended and nontender. No rebound, no guarding. No CVA tenderness, no hepatosplenomegaly. Bowel sounds present to all four quadrants. No high pitch or tinkling sounds, resonant to percussion. Extremities: No cyanosis, clubbing, or edema present. Pulses are palpable 2/2. Active ROM to all four extremities. Neuro: Alert and orientated x 0. PERRLA. Cranial nerves 2-12 intact without focal deficit. Skin: Warm, dry, and intact, without rash, erythema, or lesion. Psych: uncooperative, Const: General: no acute distress Resp: Effort & Inspection: normal respiratory effort Auscultation: clear to auscultation bilaterally Cardio: Rate: regular rate Rhythm: regular rhythm GI: Auscultation: normal bowel sounds Skin: General skin exam: no rashes or lesions noted Extrem: Other: No cyanosis, clubbing, or edema present. Pulses are palpable 2/2. Active ROM to all four extremities. Psych: Other: uncooperative. Objective Data Vital Signs Vital Signs: Vital Signs - 24 hr 02/23/24 10:15 02/23/24 10:56 02/23/24 13:25 Temperature 97.8 F 97.7 F Pulse Rate 82 87 Respiratory Rate 18 18 Blood Pressure 139/71 123/65 Pulse Oximetry 93 94 96 Oxygen Delivery Nasal Cannula Oxygen Flow Rate 2.5 02/23/24 16:00 02/23/24 20:50 02/23/24 19:46 Temperature 97.6 F 98.0 F Pulse Rate 105 H 110 H 110 H Respiratory Rate 19 16 Blood Pressure 152/70 H 165/78 H Pulse Oximetry 100 100 Oxygen Delivery Oxygen Flow Rate 02/23/24 21:00 02/23/24 22:59 02/24/24 02:15 Temperature 97.9 F 98.0 F Pulse Rate 72 86 Respiratory Rate 20 18 Blood Pressure 110/60 136/60 Pulse Oximetry 100 100 100 Oxygen Delivery Nasal Cannula Oxygen Flow Rate 2 02/24/24 04:00 02/24/24 07:51 02/24/24 08:05 Temperature 98.1 F Pulse Rate 71 Respiratory Rate 16 16 Blood Pressure 132/60 Pulse Oximetry 100 94 92 Oxygen Delivery Room Air Oxygen Flow Rate 02/24/24 08:05 Temperature Pulse Rate 72 Respiratory Rate 18 Blood Pressure Pulse Oximetry Oxygen Delivery Oxygen Flow Rate Intake/Output Intake/Output: Intake & Output 02/21/24 02/22/24 02/23/24 02/24/24 23:59 23:59 23:59 23:59 Intake Total 50 200 930 Output Total 1250 Balance 50 -1050 930 Meds/Results Medications: Active Medications Generic Name Dose Route Start Last Admin Trade Name Freq PRN Reason Stop Dose Admin Acetaminophen 650 mg 02/22/24 14:49 02/23/24 20:50 Acetaminophen 325 Mg Tablet PO 650 mg Q4H PRN Administration Mild Pain (1-3) or Fever Aspirin 325 mg 02/22/24 21:00 02/23/24 20:50 Aspirin 325 Mg Tablet PO 325 mg HS DELILAH Administration Docusate Sodium 100 mg 02/22/24 17:00 02/24/24 08:04 Docusate Sodium 100 Mg Capsule PO 100 mg BID DELILAH Administration Enoxaparin Sodium 40 mg 02/23/24 09:00 02/24/24 08:03 Enoxaparin 40 Mg/0.4 Ml Syringe SUB-Q 40 mg DAILY DELILAH Administration Ceftriaxone Sodium 1 gm in 50 mls @ 100 mls/hr 02/22/24 18:00 02/23/24 17:54 Rocephin 1 Gm/Ns 50 Ml IVPB Infused Q24H DELILAH Infusion Sodium Chloride 1,000 mls @ 100 mls/hr 02/23/24 16:10 02/24/24 03:06 Normal Saline Iv IV CONT 100 mls/hr .Q10H DELILAH Administration Melatonin 3 mg 02/22/24 21:00 02/23/24 20:49 Melatonin 3 Mg Tablet PO 3 mg HS DELILAH Administration Metoprolol Tartrate 12.5 mg 02/22/24 21:00 02/23/24 20:50 Metoprolol Tartrate 12.5 Mg Tablet PO 12.5 mg HS DELILAH Administration Midodrine 2.5 mg 02/23/24 09:00 02/23/24 10:13 Midodrine Hcl 2.5 Mg Tablet PO 2.5 mg DAILY DELILAH Administration Olanzapine 5 mg 02/23/24 09:00 02/24/24 08:04 Olanzapine 5 Mg Tablet PO 5 mg BID DELILAH Administration Polyethylene Glycol 17 gm 02/23/24 09:00 02/24/24 08:03 Polyethylene Glycol 3350 17 Gm Powd.Pack PO 17 gm QAM DELILAH Administration Umeclidinium/Vilanterol 1 puff 02/23/24 09:00 02/24/24 08:03 Umeclidinium/Vilanterol 62.5-25 Mcg Ellipta INHALATION 1 puff DAILY DELILAH Administration Radiology Results: ITS Impressions Head CT 02/22/24 11:55 IMPRESSION: No acute intracranial findings. Chest X-Ray 02/22/24 12:15 IMPRESSION: Possible infiltrate in the right costophrenic angle suggestive of early pneumonia. Follow-up advised. Abdomen/Pelvis CT 02/22/24 13:07 IMPRESSION: 1. Nonobstructing left kidney stones. 2. 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 Labs Labs: Laboratory Results - last 24 hr 02/23/24 02/23/24 02/24/24 05:28 10:58 05:44 WBC 13.1 H RBC 3.84 L Hgb 12.4 Hct 39.8 MCV 103.6 H MCH 32.3 MCHC 31.2 L RDW 13.3 Plt Count 269 MPV 10.7 H Immature Gran % (Auto) 0.4 Neut % (Auto) 86.8 H Lymph % (Auto) 5.6 L [place] % (Auto) 6.8 Eos % (Auto) 0.2 Baso % (Auto) 0.2 Lymph # (Auto) 0.73 L [place] # (Auto) 0.9 H Eos # (Auto) 0.0 Baso # (Auto) 0.0 Abs Immat Gran (auto) 0.05 H Absolute Neuts (auto) 11.3 H Absolute Nucleated RBC 0.000 Nucleated RBC % 0.0 Sodium 145 Potassium 4.2 Chloride 110 H Carbon Dioxide 25 Anion Gap 10 BUN 15 Creatinine 0.60 L Estim Creat Clear Calc 52 Estimated GFR > 60 Glucose 88 Calcium 9.1 Magnesium 1.9 Total Bilirubin 0.6 AST 33 ALT 13 Alkaline Phosphatase 77 Total Protein 7.0 Albumin 3.9 Influenza A (RT-PCR) Negative Influenza B (RT-PCR) Negative RSV (RT-PCR) Negative SARS-CoV-2 RNA (RT-PCR) Negative Quality VTE Prophylaxis VTE prophylaxis: pharmacologic ordered Hospitalist MIPS Advance Care Plan I have confirmed that the patient's Advanced Care Plan is present, code status is documented, or surrogate decision maker is listed in patient medical record.: Yes
[2024-02-24] MEDS: MIDODRINE HCL 2.5 MG TABLET PO (08:20)
--- NOTE | 2024-02-24 13:07 | PCOTNOTE ---
Family of pt meeting with hospice at 1pm today. Pt still in one wrist restraint. Will continue to follow.
[2024-02-24] MEDS: ACETAMINOPHEN 325 MG TABLET 650 MG PO (20:47)
[2024-02-24] MEDS: MELATONIN 3 MG TABLET PO (20:49)
[2024-02-24] MEDS: METOPROLOL TARTRATE 12.5 MG TABLET PO (20:49)
[2024-02-24] MEDS: ASPIRIN 325 MG TABLET PO (20:49)
[2024-02-25] MEDS: SODIUM CHLORIDE 0.9% IV 1,000 ML 100 ML IV CONT ×2 (00:15→09:44)
[2024-02-25 04:00] VITALS: BP 125/86; PULSE 90; RESP 18; TEMP 36.6; O2SAT 96
[2024-02-25 06:03] LABS: Basophils Percent Auto 0.3 % (0.2-1.2); Eosinophils Percent Auto 0.2 % (0-4.4); Hematocrit 42.2 % (37.0-47.0); Hemoglobin 12.9 g/dL (12.0-15.0); Immature Granulocyte Absolute 0.08 K/mm3 (0.00-0.031); Immature Granulocyte Percent A 0.5 % (0-0.5); Lymphocytes Absolute Auto 0.57 K/mm3 (0.9-3.2); Lymphocytes Percent Auto 3.8 % (18.3-44.2); Mean Corpuscular HGB Conc 30.6 g/dl (32-36); Mean Corpuscular Hemoglobin 31.9 pg (26-34); Mean Corpuscular Volume 104.5 fl (80-100); Mean Platelet Volume 10.9 fl (7.4-10.4); Monocytes Absolute Auto 1.1 K/mm3 (0.1-0.6); Monocytes Percent Auto 7.4 % (2.6-8.5); Neutrophils Absolute Auto 13.3 K/mm3 (1.3-6.7); Neutrophils Percent Auto 87.8 % (45.5-73.1); Platelet Count Result 249 k/mm3 (150-375); Red Blood Count 4.04 M/mm3 (4.2-5.4); Red Cell Distribution Width 13.2 % (11.5-14.5); White Blood Count 15.1 K/mm3 (4.5-10.0)
[2024-02-25 06:13] LABS: Alanine Aminotransferase 15 U/L (6-35); Albumin Level 4.5 g/dL (3.5-5.1); Alkaline Phosphatase 89 U/L (38-126); Anion Gap 17 mmol/L (4-12); Aspartate Amino Transferase 35 U/L (14-36); Bilirubin,Total 0.8 mg/dL (0.2-1.3); Blood Urea Nitrogen 10 mg/dL (7-17); Calcium 9.6 mg/dL (8.4-10.2); Carbon Dioxide 14 mmol/L (22-30); Chloride 114 mmol/L (98-107); Estimated CRCL calculation 74 ml/min; Estimated Glomerular Filt Rate > 60; Glucose 92 mg/dL (65-110); Potassium 4.1 mmol/L (3.4-5.0); Sodium 145 mmol/L (137-145)
[2024-02-25 07:05] VITALS: PULSE 74; RESP 18; O2SAT 98
[2024-02-25] MEDS: UMECLIDINIUM/VILANTEROL 62.5-25 MCG ELLIPTA 1 PUFF INHALATION (07:05)
[2024-02-25 08:00] VITALS: BP 170/73; PULSE 90; RESP 22; TEMP 36; O2SAT 100
--- NOTE | 2024-02-25 08:31 | P.PNIM_ITS ---
Progress Note: A&P Assessment and Plan (1) UTI (urinary tract infection): Code(s): N39.0 - Urinary tract infection, site not specified Status: Acute Assessment and Plan: * Failed oral antibiotics amoxicillin clavulanate * Culture and sensitivity pending * IV Rocephin * Encourage oral intake * NS@ 100 ml/hr. 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 * Oxygen as needed. (3) Hypothyroidism: Qualifiers: Hypothyroidism type: acquired Qualified Code(s): E03.9 - Hypothyroidism, unspecified Code(s): E03.9 - Hypothyroidism, unspecified Status: Acute Assessment and Plan: * Reorder home Synthroid (4) Dementia: Code(s): F03.90 - Unspecified dementia, unspecified severity, without behavioral disturbance, psychotic disturbance, mood disturbance, and anxiety Status: Acute Assessment and Plan: * With behavioral issues * Not on home medications * Sleep hygiene to prevent hospital-acquired delirium * Zyprexa b.i.d. (5) Weakness: Code(s): R53.1 - Weakness Status: Acute Assessment and Plan: * Likely due to deconditioning and UTI * PT and OT evaluation , patient not participating in therapy due to altered mental status * Family states they can no longer care for her at home, she will need placement Subjective Date/time seen: 02/25/24 08:31 Interval history: 83-year-old female with history of left breast cancer, chronic kidney disease, renal cell carcinoma, COPD, hypertension hypothyroidism presenting to the emergency department for evaluation for altered mental status which is thought to be secondary to a current urinary tract infection and Behavioral dementia patient will need placement patient id discharged on hospice however that the daughter is still deciding if she is going to take her home recommend her to SNF Review of Systems Review of Systems: 12 systems were reviewed and are negativ e except for as per HPI. All systems reviewed & are unremarkable except as noted in HPI and below ROS unobtainable: Yes unobtainable due to mental status (Combative) Exam Narrative: General: Mal-nourished. HEENT: normocephalic, atraumatic. Mucous membranes moist. EOMI, PERRLA, bilateral sclera anicteric, no conjunctival injection. Neck supple without JVD, lymphadenopathy, or bruit. Respiratory: clear to ascultation bilaterally. No rales/rhonic/wheezes. Cardiovascular: Regular rate and rhythm, normal S1-S2 upon ascultation. No murm urs, rubs, or clicks. PMI is nondisplaced, capillary refill less than 3 second. Abdomen: Soft, round, no pulsatile masses, nondistended and nontender. No rebound, no guarding. No CVA tenderness, no hepatosplenomegaly. Bowel sounds present to all four quadrants. No high pitch or tinkling sounds, resonant to percussion. Extremities: No cyanosis, clubbing, or edema present. Pulses are palpable 2/2. Active ROM to all four extremities. Neuro: Alert and orientated x 0. PERRLA. Cranial nerves 2-12 intact without focal deficit. Skin: Warm, dry, and intact, without rash, erythema, or lesion. Psych: uncooperative, Const: General: no acute distress Resp: Effort & Inspection: normal respiratory effort Auscultation: clear to auscultation bilaterally Cardio: Rate: regular rate Rhythm: regular rhythm GI: Auscultation: normal bowel sounds Skin: General skin exam: no rashes or lesions noted Extrem: Other: No cyanosis, clubbing, or edema present. Pulses are palpable 2/2. Active ROM to all four extremities. Psych: Other: uncooperative. Objective Data Vital Signs Vital Signs: Vital Signs - 24 hr 02/24/24 12:00 02/24/24 16:00 02/24/24 19:42 Temperature 97.6 F 97.6 F 98.6 F Pulse Rate 115 H 115 H 109 H Respiratory Rate 18 19 20 Blood Pressure 146/65 H 137/89 185/60 H Pulse Oximetry 100 99 97 Oxygen Delivery 02/24/24 20:49 02/24/24 23:52 02/25/24 04:00 Temperature 97.9 F 97.8 F Pulse Rate 106 H 84 90 Respiratory Rate 20 18 Blood Pressure 186/59 H 125/86 Pulse Oximetry 99 96 Oxygen Delivery 02/25/24 07:05 02/25/24 07:05 Temperature Pulse Rate 74 74 Respiratory Rate 18 18 Blood Pressure Pulse Oximetry 98 Oxygen Delivery Room Air Intake/Output Intake/Output: Intake & Output 02/22/24 02/23/24 02/24/24 02/25/24 23:59 23:59 23:59 23:59 Intake Total 50 200 3130.0 0 Output Total 1250 1100 900 Balance 50 -1050 2030.0 -900 Meds/Results Medications: Active Medications Generic Name Dose Route Start Last Admin Trade Name Freq PRN Reason Stop Dose Admin Acetaminophen 650 mg 02/22/24 14:49 02/24/24 20:47 Acetaminophen 325 Mg Tablet PO 650 mg Q4H PRN Administration Mild Pain (1-3) or Fever Aspirin 325 mg 02/22/24 21:00 02/24/24 20:49 Aspirin 325 Mg Tablet PO 325 mg HS DELILAH Administration Docusate Sodium 100 mg 02/22/24 17:00 02/24/24 16:32 Docusate Sodium 100 Mg Capsule PO Not Given BID DELILAH Enoxaparin Sodium 40 mg 02/23/24 09:00 02/24/24 08:03 Enoxaparin 40 Mg/0.4 Ml Syringe SUB-Q 40 mg DAILY DELILAH Administration Ceftriaxone Sodium 1 gm in 50 mls @ 100 mls/hr 02/22/24 18:00 02/24/24 17:40 Rocephin 1 Gm/Ns 50 Ml IVPB Infused Q24H DELILAH Infusion Sodium Chloride 1,000 mls @ 100 mls/hr 02/23/24 16:10 02/25/24 00:15 Normal Saline Iv IV CONT 100 mls/hr .Q10H DELILAH Administration Melatonin 3 mg 02/22/24 21:00 02/24/24 20:49 Melatonin 3 Mg Tablet PO 3 mg HS DELILAH Administration Metoprolol Tartrate 12.5 mg 02/22/24 21:00 02/24/24 20:49 Metoprolol Tartrate 12.5 Mg Tablet PO 12.5 mg HS DELILAH Administration Midodrine 2.5 mg 02/23/24 09:00 02/24/24 08:20 Midodrine Hcl 2.5 Mg Tablet PO 2.5 mg DAILY DELILAH Administration Olanzapine 5 mg 02/23/24 09:00 02/24/24 16:31 Olanzapine 5 Mg Tablet PO 5 mg BID DELILAH Administration Polyethylene Glycol 17 gm 02/23/24 09:00 02/24/24 08:03 Polyethylene Glycol 3350 17 Gm Powd.Pack PO 17 gm QAM DELILAH Administration Umeclidinium/Vilanterol 1 puff 02/23/24 09:00 02/25/24 07:05 Umeclidinium/Vilanterol 62.5-25 Mcg Ellipta INHALATION 1 puff DAILY DELILAH Administration Radiology Results: ITS Impressions Head CT 02/22/24 11:55 IMPRESSION: No acute intracranial findings. Chest X-Ray 02/22/24 12:15 IMPRESSION: Possible infiltrate in the right costophrenic angle suggestive of early pneumonia. Follow-up advised. Abdomen/Pelvis CT 02/22/24 13:07 IMPRESSION: 1. Nonobstructing left kidney stones. 2. 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 Labs Labs: Laboratory Results - last 24 hr 02/25/24 05:47 WBC 15.1 H RBC 4.04 L Hgb 12.9 Hct 42.2 MCV 104.5 H MCH 31.9 MCHC 30.6 L RDW 13.2 Plt Count 249 MPV 10.9 H Immature Gran % (Auto) 0.5 Neut % (Auto) 87.8 H Lymph % (Auto) 3.8 L [place] % (Auto) 7.4 Eos % (Auto) 0.2 Baso % (Auto) 0.3 Lymph # (Auto) 0.57 L [place] # (Auto) 1.1 H Eos # (Auto) 0.0 Baso # (Auto) 0.0 Abs Immat Gran (auto) 0.08 H Absolute Neuts (auto) 13.3 H Absolute Nucleated RBC 0.000 Nucleated RBC % 0.0 Sodium 145 Potassium 4.1 Chloride 114 H Carbon Dioxide 14 L Anion Gap 17 H BUN 10 D Creatinine 0.40 L Estim Creat Clear Calc 74 Estimated GFR > 60 Glucose 92 Calcium 9.6 Total Bilirubin 0.8 AST 35 ALT 15 Alkaline Phosphatase 89 Total Protein 8.0 Albumin 4.5 Quality VTE Prophylaxis VTE prophylaxis: pharmacologic ordered
[2024-02-25 09:43] VITALS: BP 156/83
[2024-02-25] MEDS: ENOXAPARIN 40 MG/0.4 ML SYRINGE SUB-Q (09:45)
[2024-02-25] MEDS: MIDODRINE HCL 2.5 MG TABLET PO (09:47)
--- NOTE | 2024-02-25 09:59 | PC.NURSE ---
unable to get pt to swallow pills, has refused to eat or drink anything with breakfast tray and is refusing to let me administer meds, I will attempt later
[2024-02-25 12:00] VITALS: BP 157/97; PULSE 83; RESP 22; TEMP 36.2; O2SAT 100
--- NOTE | 2024-02-25 13:00 | PCNFU ---
Nutrition Follow-Up Complete: Severe protein calorie malnutrition related to chronic loss of appetite, mental status as evidenced by weight loss -11%/6 months; intakes<75% needs >1 month; severe muscle wasting and fat loss goal: Improve PO intake to at least 50% meals Patient is not meeting goal. Will continue current goal. Pt current nutrition is Heart Healthy with Ensure Compact BID. Last recorded weight is 52.7 kg, no new weight to report. Bowel Motility: Last reported BM 02/20 Labs Reviewed:Cr 0.4 Meds Noted: NS, Lopressor, Rocephin. Skin: WNL Additional Notes: Patient currently on a heart healthy diet with Ensure compact BID. Patient is refusing all meals and meds. Discussions regarding hospice per nursing. Recommend diet order to be liberalized to a regular diet and we will continue to offer diet supplements and meals. Following with plan of care. Monitoring intakes, weights, labs, supplement tolerance, plan of care Follow up in 3 days
--- NOTE | 2024-02-25 13:59 | P.DS_ITS ---
DS: Admitting Diagnosis Discharge Date 02/25/2024 Admitting Diagnosis UTI, pneumonia, Failure to thrive DS: Discharge Diagnosis Discharge Diagnosis (1) UTI (urinary tract infection): Code(s): N39.0 - Urinary tract infection, site not specified Status: Acute Assessment and Plan: improved * Failed oral antibiotics amoxicillin clavulanate * Culture and sensitivity pending * IV Rocephin * Encourage oral intake * NS@ 100 ml/hr. 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 * Oxygen as needed. (3) Hypothyroidism: Qualifiers: Hypothyroidism type: acquired Qualified Code(s): E03.9 - Hypothyroidism, unspecified Code(s): E03.9 - Hypothyroidism, unspecified Status: Acute Assessment and Plan: * Reorder home Synthroid (4) Dementia: Code(s): F03.90 - Unspecified dementia, unspecified severity, without behavioral disturbance, psychotic disturbance, mood disturbance, and anxiety Status: Acute Assessment and Plan: * With behavioral issues * Not on home medications * Sleep hygiene to prevent hospital-acquired delirium * Zyprexa b.i.d. (5) Weakness: Code(s): R53.1 - Weakness Status: Acute Assessment and Plan: * Likely due to deconditioning and UTI * PT and OT evaluation , patient not participating in therapy due to altered mental status Plan going home with her daughter on hospice DS: Summary Hospital Course Reason for hospitalization: UTI and failure to thrive Hospital Course: 83-year-old female with history of left breast cancer, chronic kidney disease, renal cell carcinoma, COPD, hypertension hypothyroidism presenting to the emergency department for evaluation for altered mental status which is thought to be secondary to a current urinary tract infection. HPI is limited due to patient being extremely agitated A&O times 0. Patient with known UTI on oral antibiotics without improvement. Of Note patient did have a fall last night where she ended up under a dresser, unsure if she hit her head or not CT head shows no acute bleed. EKG shows normal sinus rhythm rate of 67, urine cloudy with trace leukocyte esterase, negative for nitrates, urine RBC over 100. Chest x-ray shows possible infiltrate at the right costophrenic angle suggestion of pneumonia. CT of the abdomen and pelvis showed nonobstructing left kidney stones, there are approximately 4 stones in left kidney measuring up to 7 mm., and chronic pneumonia. while patient was in hospital she was treated for a UTI. Due to severe behavioral issues she was started Zyprexa. Due to worsening dementia and failure to thrive family has decided to place the patient on hospice and take her home. Arrangements have been made with hospice. Status at Discharge Cognitive/behavioral status at discharge: severe dementia Functional status at discharge: uses cane/walker Time Spent with Patient Time attestation: Total time spent providing and/or coordinating discharge services: Exam Narrative: General: Mal-nourished. HEENT: normocephalic, atraumatic. Mucous membranes moist. EOMI, PERRLA, bilateral sclera anicteric, no conjunctival injection. Neck supple without JVD, lymphadenopathy, or bruit. Respiratory: clear to ascultation bilaterally. No rales/rhonic/wheezes. Cardiovascular: Regular rate and rhythm, normal S1-S2 upon ascultation. No murmurs, rubs, or clicks. PMI is nondisplaced, capillary refill less than 3 second. Abdomen: Soft, round, no pulsatile masses, nondistended and nontender. No inocencio ound, no guarding. No CVA tenderness, no hepatosplenomegaly. Bowel sounds present to all four quadrants. No high pitch or tinkling sounds, resonant to percussion. Extremities: No cyanosis, clubbing, or edema present. Pulses are palpable 2/2. Active ROM to all four extremities. Neuro: Alert and orientated x 0. PERRLA. Cranial nerves 2-12 intact without focal deficit. Skin: Warm, dry, and intact, without rash, erythema, or lesion. Psych: uncooperative, DS: Data Data Completed and Pending Labs on day of discharge: Labs from last 24 hours 02/25/24 05:47 WBC 15.1 H RBC 4.04 L Hgb 12.9 Hct 42.2 MCV 104.5 H MCH 31.9 MCHC 30.6 L RDW 13.2 Plt Count 249 MPV 10.9 H Immature Gran % (Auto) 0.5 Neut % (Auto) 87.8 H Lymph % (Auto) 3.8 L Jones % (Auto) 7.4 Eos % (Auto) 0.2 Baso % (Auto) 0.3 Lymph # (Auto) 0.57 L Jones # (Auto) 1.1 H Eos # (Auto) 0.0 Baso # (Auto) 0.0 Abs Immat Gran (auto) 0.08 H Absolute Neuts (auto) 13.3 H Absolute Nucleated RBC 0.000 Nucleated RBC % 0.0 Sodium 145 Potassium 4.1 Chloride 114 H Carbon Dioxide 14 L Anion Gap 17 H BUN 10 D Creatinine 0.40 L Estim Creat Clear Calc 74 Estimated GFR > 60 Glucose 92 Calcium 9.6 Total Bilirubin 0.8 AST 35 ALT 15 Alkaline Phosphatase 89 Total Protein 8.0 Albumin 4.5 Preliminary micro results at discharge 02/23/24 02:53 Urine Culture - Preliminary Unspecified Gram negative bacilli isolated Discharge Plan Discharge Discharging Clinician: Yessy Barry Anticipated Discharge Date/Time: 02/25/24 14:06 Patient Disposition: Hospice - Home Activity: may shower Diet: regular Discharge Instructions: Discharge instructions: you may continue with your home meds if you wish however you do not have too New medications prescribed: Zyprexa for behavioral dementia issues other medications will be provided by hospice your being discharged on hospice cleared the goal of care is to provide comfort in her remaining days. Follow-up with: follow-up with hospice upon discharge Thank you for [facility] for your healthcare needs Patient Instructions: Dementia (GEN) Stand Alone Forms: General Discharge Information Follow-up/Referrals: Jazz,Andra, DO [Primary Care Provider] - ( if desired) Discharge Medications: New olanzapine 5 mg Tablet 5 mg PO BID PRN (Reason: agitation) Qty: 20 0RF Continued levothyroxine 25 mcg Tablet See Rx Instructions .ROUTE .COMPLEX Rx Instructions: takes 2 tablets on Wednesday and 1.5 tablet Mon - Wed midodrine 2.5 mg tablet 2.5 mg PO DAILY metoprolol tartrate 25 mg tablet 12.5 mg PO HS Zyrtec 10 mg Capsule 10 mg PO DAILY PRN (Reason: Allergy Symptoms) acetaminophen [Acetaminophen Extra Strength] 500 mg Tablet 500 mg PO Q6H PRN (Reason: Pain, Mild) Discontinued vitamin B complex [B Complex-Vitamin B12] Tablet 1 tablet PO DAILY Rx Instructions: 100 aspirin 325 mg Tablet 325 mg PO HS Hold Instructions: Resume on 10/25/22. ferrous sulfate 325 mg (65 mg iron) Tablet 325 mg PO QMWF Rx Instructions: MWF Anoro Ellipta 62.5-25 mcg/actuation blister with device 1 inh INHALATION DAILY melatonin 5 mg Tablet 2.5 mg PO HS amoxicillin-pot clavulanate 875-125 mg tablet 1 tablet PO Q12H Qty: 3 0RF Date of admission: 02/23/24 10:07 Primary Care Provider: Jazz,Andra Admitting Provider: Ozzie Beasley Attending physician on admission: Ozzie Beasley Condition: Serious Quality VTE Prophylaxis VTE prophylaxis: pharmacologic ordered Hospitalist MIPS Heart Failure (Exclusion) Patient has history of Heart Transplant or Left Ventricular Assistive Device?: No IF YES, STOP HERE Heart Failure (Qualifier) Patient has current or prior documentation of LVEF less than or equal to 40%, or mod/servere depressed LVSF?: No IF NO, STOP HERE
--- NOTE | 2024-02-25 15:10 | PC.NURSE ---
pt going home on hospice care, call to family and to vacuum tank tender to review plan of care and inform them of discharge timing coordinated with EMS
== END 2024-02-25 15:40 | disposition hospice, home (50) | DRG 689 ==
LOC: ANHED 10:48 → ANH2MED 14:43
PROVIDERS: Nurse Practitioner Family; Physician Assistant; Admitting Provider Internal Medicine; Emergency Provider Emergency Medicine; PCP Family Medicine; Visit Provider Nurse Practitioner Gerontology
DX: N39.0 Urinary tract infection, site not specified (principal); E43 Unspecified severe protein-calorie malnutrition; J18.9 Pneumonia, unspecified organism; A31.0 Pulmonary mycobacterial infection; F03.918 Unspecified dementia, unspecified severity, with other behavioral disturbance; J44.0 Chronic obstructive pulmonary disease with (acute) lower respiratory infection; Z68.1 Body mass index [BMI] 19.9 or less, adult; E03.9 Hypothyroidism, unspecified; E78.5 Hyperlipidemia, unspecified; I12.9 Hypertensive chronic kidney disease with stage 1 through stage 4 chronic kidney disease, or unspecified chronic kidney disease; N20.0 Calculus of kidney; N18.9 Chronic kidney disease, unspecified; W19.XXXA Unspecified fall, initial encounter; Z90.5 Acquired absence of kidney; Z90.49 Acquired absence of other specified parts of digestive tract; Z85.3 Personal history of malignant neoplasm of breast; Z20.822 Contact with and (suspected) exposure to COVID-19; Z85.528 Personal history of other malignant neoplasm of kidney; Z79.82 Long term (current) use of aspirin
CPT/HCPCS: 36415; 70450; 71046; 74176; 80048; 80053; 81001; 83735; 85025; 87077; 87086; 87088; 87186; 87637; 93005; 94640; 96372; 99285; A9270; G0378; J0696; J1650; J2359; J7030